=== PATIENT | male | born 1955 | race African-American/Black ===

== ENCOUNTER 2016-09-02 03:04 | Inpatient (IN) ==
[2016-09-02] MEDS ORDERED: NITROGLYCERIN 2% OINT 1 INCH/GM PACK TOP STA (03:14)
[2016-09-02] MEDS ORDERED: NITROGLYCERIN 2% OINT 1 INCH/GM PACK TOP ONE (03:22)
[2016-09-02 03:57] LABS: Troponin I Only 0.512 NG/ML (0.00-0.045)
[2016-09-02] MEDS ORDERED: ONDANSETRON 4 MG/2 ML VIAL IV PRN (04:11)
[2016-09-02] MEDS ORDERED: MAGNESIUM SULF RIDER 4 GM in PREMIX 1 EACH IV PRN (04:11)
[2016-09-02] MEDS ORDERED: POTASSIUM CHLORIDE 20 MEQ/15 ML UDCUP PER TUBE PRN (04:11)
[2016-09-02] MEDS ORDERED: guaiFENesin/DM ER 600-30 MG TABLET PO PRN (04:11)
[2016-09-02] MEDS ORDERED: DOCUSATE SODIUM 100 MG CAPSULE PO PRN (04:11)
[2016-09-02] MEDS ORDERED: MAGNESIUM SULF RIDER 2 GM in PREMIX 1 EACH IV PRN (04:11)
[2016-09-02] MEDS ORDERED: ACETAMINOPHEN 325 MG TABLET PO PRN (04:11)
--- NOTE | 2016-09-02 04:11 | Emergency Department Note ---
IEyad Emily, am scribing for, and in the presence of, Khoa Montes MD 03: 23. Simon Cline Robert M, MD, personally performed the services described in this documentation, ascribed by Alma Delia Castano in my presence, and it is both accurate and complete . Arrival - Arrival Chief Complaint: Chest Pain Stated Complaint: chest pain ED Nursing Triage Note: pt brought to room #8 via EMS. pt transfered from [facility] for further evaluation of CP and SOB with evlevated troponin and BNP. Duoneb, Lasix 40mg, Lovenox 100mg and ASA 325 mg given CATH LAB MANAGER. L hand 20g INT noted. Pt denies CP and SOB on arrival Mode of Arrival: Stretcher Limitations: No Limitations Source: Patient Time Seen by Provider: 09/02/16 03:10 - History of Present Illness HPI Narrative: Pt is a 61 y/o male who was transfered from [facility] for further evaluation of chest pain and SOB with elevated troponin and BNP. Duoneb , Lasix 40mg, Lovenox 100mg and ASA 325 mg was given CATH LAB MANAGER to pt. L hand 20g INT noted. Pt states he has "tightness" in his chest but denies pain or SOB in ED. Pt denies taking viagara or nitros. PMHx of CHF, CABG, CVA. Onset (ago): hour(s) Consistency: constant, now resolved Severity: mild, moderate Severity scale (1-10): 4 Quality: aching Allergies/Adverse Reactions: Allergies Allergy/AdvReac Type Severity Reaction Status Date / Time codeine Allergy RASH Verified 09/02/16 03:11 Penicillins Allergy ITCHING Verified 09/02/16 03:11 morphine AdvReac Hallucinati Verified 09/02/16 03:11 ng Home Medications: Home Medications Medication Instructions Recorded Confirmed Type Aspirin [Ecotrin] 81 mg PO DAILY 09/29/14 04/07/16 History Atorvastatin [Lipitor] 10 mg PO DAILY 09/29/14 04/07/16 History Carvedilol 25 mg PO BID 09/29/14 04/07/16 History HYDROcodone/ACETAMIN 10-325 [[place] 1 tablet PO Q6H 09/29/14 04/07/16 History 10-325] Insulin Lispro Prot/Lisp 75/25 10 units SUBCUT QPM 09/29/14 04/07/16 History [HumaLOG Mix 75/25] Insulin Lispro Prot/Lisp 75/25 25 units SUBCUT QAM 09/29/14 04/07/16 History [HumaLOG Mix 75/25] Multivitamin [Multivitamins] 1 each PO DAILY 09/29/14 04/07/16 History Pantoprazole Tab [Protonix Tab] 40 mg PO DAILY 09/29/14 04/07/16 History amLODIPine [Norvasc] 10 mg PO DAILY 09/29/14 04/07/16 History Losartan [Cozaar] 25 mg PO BID #60 tablet 10/02/14 04/07/16 Rx Furosemide Tab [Lasix Tab] 20 mg PO DAILY #30 tablet 04/07/16 Rx predniSONE TAB [PredniSONE] 20 mg PO DAILY #5 tablet 04/07/16 Rx Review of System - Review of System 12 point system: reviewed and no additional remarkable complaints except as stated - Review of System Constitutional: Absent: chills, fever Respiratory: Present: respiratory distress (SOB) Cardiovascular: Present: chest pain Skin: Absent: rash Medical,Surgical,& Family Hx - Medical History Cardio: History of: CHF, CAD, Hypertension, [place], Cardiovascular Problems (CABG, [place]) Psychological: History of: Anxiety Disorders Endocrine: History of: Diabetes Mellitus (IDDM), Dyslipidemia Renal: History of: Renal Failure Gastrointestinal: History of: GERD Musculoskeletal: History of: Back/Neck Problems (Back surgery X 3), Degenerative Disk Disease, Herniated Disk, Musculoskeletal Problems (Arthritis) - Surgical History Cardiac Surgeries: Sugical HX of: Cardiac Catheterization, Cardiac Surgery HEENT Surgeries: Surgical HX of: Eye Surgery - Family History Family History: Reports;: Family Diabetes, Family Heart Disease, Family Hypertension, Family Stroke - Social History Smoking Status: Former smoker Frequency of Alcohol Use: Frequently Type of Drug Use: None Exam Vital Signs: Vital Signs Temperature 98.5 F 09/02/16 03:05 Pulse Rate 86 09/02/16 03:05 Respiratory Rate 18 09/02/16 03:05 Blood Pressure 153/95 09/02/16 03:05 O2 Sat by Pulse Oximetry 96 09/02/16 03:05 - General General appearance: alert, in no apparent distress - Head Head exam: Present: atraumatic, normocephalic - Eye Eye exam: Present: PERRL, EOMI - ENT ENT exam: Present: mucous membranes moist. Absent: mucous membranes dry - Neck Neck exam: Present: full ROM. Absent: tenderness - Chest Chest inspection: Present: symmetric chest wall rise. Absent: tenderness - Respiratory Respiratory exam: Present: normal lung sounds bilaterally. Absent: respiratory distress - Cardiovascular Cardiovascular exam: Present: irregular rhythm (occasional but PVC on monitor), normal heart sounds - Neurological Exam Neurological exam: Present: alert, oriented X3, CN II-XII intact. Absent: motor sensory deficit - Psychiatric Psychiatric exam: Present: normal affect, normal mood - Skin Skin exam: Present: warm, dry, intact, normal color Course - Consultations Consultation #1: Dr. Campa will admit the patient and evaluate later this morning. Time: 04:11 Results - Labs Lab Results: I have reviewed the patients labs Labs: Total Creatine Kinase 172 U/L (39-308) 09/02/16 03:17 CK-MB (CK-2) 1.8 U/L (0.5-3.6) 09/02/16 03:17 Troponin I 0.512 NG/ML (0.00-0.045) H 09/02/16 03:17 Disposition Clinical Impression: Congestive heart failure, Chest pain, Systolic CHF, acute on chronic, Cardiomyopathy due to hypertension, Ischemic cardiomyopathy, Renal insufficiency Case discussed with: patient Disposition: Still a Patient Condition: Stable Instructions: Chest Pain (ED) Time of Disposition: 04:11
[2016-09-02] MEDS ORDERED: ENOXAPARIN 100 MG/ML SYRINGE SUBCUT STA (04:13)
[2016-09-02] MEDS ORDERED: ENOXAPARIN 100 MG/ML SYRINGE SUBCUT ONE (04:28)
[2016-09-02] MEDS ORDERED: SODIUM CHLORIDE 0.45% 1,000 ML IV SCH (04:30)
[2016-09-02 06:03] LABS: Troponin I Only 0.507 NG/ML (0.00-0.045)
--- NOTE | 2016-09-02 07:02 | EKG Report ---
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
[2016-09-02 07:35] LABS: Basophils % 0.5 % (0.0-0.8); Eosinophils # 0.1 10*3/uL (0.0-0.87); Eosinophils % 1.4 % (0.00-10.9); Hematocrit 34.7 VOL% (42.0-52.0); Hemoglobin 11.4 GM/DL (14.0-18.0); Immature Granulocytes % 0.2 %; Immature Granulocytes Absolute 0.01 #; Lymphocytes # 1.1 10*3/uL (1.4-4.0); Lymphocytes % 24.4 % (21.2-54.2); Mean Corpuscular HGB Conc 32.9 GM/DL (32-36); Mean Corpuscular Hemoglobin 30 PG (27-34); Mean Corpuscular Volume 91.3 FL (87-102); Mean Platelet Volume 10.9 FL (9.6-12.0); Monocytes # 0.7 10*3/uL (0.11-0.8); Monocytes % 15.6 % (1.7-12.7); Neutrophils # 2.5 10*3/uL (1.4-7.4); Neutrophils % 57.9 % (38.7-73.9); Platelet Count 115 T/CUMM (130-400); Red Cell Distribution Width 16.8 % (9.3-17.3); White Blood Count 4.4 T/CUMM (4-12)
[2016-09-02 08:08] LABS: Calcium 9.3 MG/DL (8.5-10.1); Magnesium 1.8 MG/DL (1.8-2.4); Osmolality,Calculated 295.1 MOS/KG (273-304); Potassium 4.4 MMOL/L (3.5-5.1)
--- NOTE | 2016-09-02 08:08 | Cardiology History & Physical ---
<Nataliya Owens - Last Filed: 09/02/16 10:42> Assessment and Plan - Time spent with patient Time spent with patient: Greater than 30 minutes (1) Chest pain Status: Acute Assessment and plan: On exam, his pain was reproducible. Patient reports that this was the same chest pain he was experiencing. This is consistent with chest wall pain. I will add gabapentin, tramadol and Tylenol. Trivial troponin noted. She has history of chronically elevated troponins. EKG was actually improved when compared to previous EKG. We will continue to monitor cardiac biomarkers and EKG. Current Visit: Yes (2) Coronary artery disease Status: Chronic Current Visit: No (3) Ischemic cardiomyopathy Status: Chronic Assessment and plan: Ejection fraction from most recent echo, March 2016, revealed concentric LVH and severe left ventricular hypokinesis with an estimated left ventricular ejection fraction of 14%. Moderate tricuspid regurgitation, mild pulmonic regurgitation and mild mitral regurgitation noted. We will repeat echo this admission. Current Visit: Yes (4) Systolic CHF, acute on chronic Status: Acute Assessment and plan: BNP at outside facility was 5732. At [facility] it was noted to be 1554. Chest x-ray does not reveal any acute cardia pulmonary processes. Will add Lasix 40 mg IV twice daily. Will monitor creatinine closely with daily BMP. We will continue losartan for now. Will monitor creatinine and hold if needed. Current Visit: Yes (5) Renal insufficiency Status: Chronic Assessment and plan: Creatinine is 2.3. Will monitor closely with daily BMP. Current Visit: Yes (6) Diabetes Status: Chronic Assessment and plan: Patient's home medications have been reinitiated. Current Visit: No (7) History of coronary artery bypass graft Status: Chronic Assessment and plan: History of CABG in 2004. Current Visit: No (8) Hyperlipidemia Status: Chronic Assessment and plan: Continue current plan of care with statin. Current Visit: No (9) Troponin level elevated Status: Chronic Assessment and plan: Troponin is noted to be 0.5. However, after reviewing past medical records it appears that patient has a chronically elevated troponin. Patient's creatinine is also elevated at 2.3. BNP 1554. These are not concerning for ACS at this time. We will continue to monitor these. Current Visit: No (10) Dysphagia Status: Acute Assessment and plan: We will consult GI. Current Visit: Yes (11) Snoring Status: Acute Assessment and plan: We will consult Dr. Sousa for workup of possible sleep apnea. Current Visit: Yes History of Present Illness Chief complaint: Shortness of breath and chest pain History of present illness: Mr. Fields is a 61 year old male with known history of coronary artery disease, routinely followed by Dr. Campa. Patient was transferred from [facility] for further evaluation of chest pain and shortness of breath. Patient has cardiac risk factors significant for known history of coronary artery disease, hypertension, diabetes, dyslipidemia, obesity, family history of coronary artery disease (father and brother) and former smoker (reports that he quit in 1989). Past medical history includes: Ischemic cardiomyopathy, myocardial infarction and peripheral vascular disease. He is status post CABG 3 in 2004. Patient has ROCKWELL to LAD, vein graft to OM and vein graft to RCA. Patient underwent cardiac stress test at cardiovascular [place] [facility] April 2016. Stress EKG was abnormal with downsloping ST depression noted in lead II, lead III, aVL, aVF, V4, V5 and V6. The nuclear portion of this study was also abnormal. The study was consistent with mostly scar tissue with minimal ischemia. The scan was suggestive of low to moderate risk for future cardiovascular events. Medium fixed perfusion abnormality of severe intensity in the inferior region was noted. Left ventricular ejection fraction was calculated to be 17% and the left ventricular global function is severely reduced. Heart catheterization October 2011 revealed occluded vein graft to OM. The OM had an extreme angle making it very difficult if not impossible for intervention. Because of this, intervention was not attempted. Patient was treated with medical therapy. Most recent echo was done March 2016 at [facility]. This revealed concentric LVH and severe left ventricular hypokinesis with an estimated left ventricular ejection fraction of 14%. Moderate tricuspid regurgitation, mild pulmonic regurgitation and mild mitral regurgitation noted. Patient was in his usual state of health until yesterday evening around 8:00 when he began experiencing moderate chest tightness and pressure while watching TV. This pain was located in the middle of his chest and did not radiate. He rates his pain a 6 on a scale of 1-10. He confirms at this pain was also associated with shortness of breath. He denies nausea, vomiting, diaphoresis, lightheadedness and heart palpitations/heart racing. Patient is unable to identify any aggravating or alleviating factors. He reports that his chest pain was not worsened with exertion. With his long-standing cardiac history, patient quickly presented to [facility] ER for further evaluation of his symptoms. Patient reports that his chest pain went away on its own while sitting in the ER. This lasted approximately 1 hour. He tells me that nitroglycerin or morphine did not relieve his pain. Upon arrival to [facility] ER , his BNP was noted to be 5732. Troponin 0.513. He was given Lasix, Lovenox and aspirin and transferred to [facility]. Patient was admitted under cardiology's service and housed on telemetry for close observation. Patient confirms bilateral lower extremity edema and shortness of breath. He denies fever, chills, cough, nausea, vomiting, melena, orthopnea and PND. Of note, he also denies dyspnea on exertion, easy fatigability and worsening of his exercise tolerance. He confirms snoring, daytime sleepiness, dysphagia, abdominal pain and history of esophageal stricture. Patient was seen and examined on the telemetry unit. Patient was resting in bed in no acute distress. Not requiring oxygen. He is currently chest pain- free. His troponin at outside facility was 0.513. At [facility] it was noted to be 0.512 and 0.507. However, patient's creatinine is elevated at 2.3. After reviewing past medical records, patient appears to have a chronically elevated troponin with baseline ranging from 0.2- 0.5. EKG reveals T-wave abnormality in leads II and aVF. However, when compared to previous EKG this has actually improved. Left BBB is noted with poor R wave progression. On exam, patient's chest pain is reproducible. He reports that this was the same chest pain that he was experiencing. We will treat his chest wall pain with gabapentin, tramadol and Tylenol. We will continue to cycle cardiac biomarkers and EKG and monitor patient on telemetry. Home Medications Medication Instructions Recorded Confirmed Type Aspirin [Ecotrin] 81 mg PO DAILY 09/29/14 09/02/16 History Atorvastatin [Lipitor] 10 mg PO BEDTIME 09/29/14 09/02/16 History HYDROcodone/ACETAMIN 10-325 [[place] 1 tablet PO Q6H 09/29/14 09/02/16 History 10-325] Insulin Lispro Prot/Lisp 75/25 10 units SUBCUT QPM 09/29/14 09/02/16 History [HumaLOG Mix 75/25] Insulin Lispro Prot/Lisp 75/25 20 units SUBCUT QAM 09/29/14 09/02/16 History [HumaLOG Mix 75/25] Multivitamin [Multivitamins] 1 each PO DAILY 09/29/14 09/02/16 History Pantoprazole Tab [Protonix Tab] 40 mg PO DAILY 09/29/14 09/02/16 History amLODIPine [Norvasc] 10 mg PO DAILY 09/29/14 09/02/16 History Losartan [Cozaar] 25 mg PO BID #60 tablet 10/02/14 09/02/16 Rx Furosemide Tab [Lasix Tab] 40 mg PO DAILY 09/02/16 09/02/16 History Allergies Allergy/AdvReac Type Severity Reaction Status Date / Time codeine Allergy RASH Verified 09/02/16 03:11 Penicillins Allergy ITCHING Verified 09/02/16 03:11 morphine AdvReac Hallucinati Verified 09/02/16 03:11 ng - Constitutional Constitutional: Present: daytime sleepiness, weight gain. Absent: chills, fatigue, fever(s), frequent falls, headache(s), lethargy, malaise - Cardiovascular Cardiovascular: Present: as per HPI, chest pain at rest, diaphoresis, dyspnea. Absent: claudication, edema, radiating jaw, neck or arm pain, lightheadedness, orthopnea, palpitations, PND - Respiratory Respiratory: Present: as per HPI, dyspnea, snoring. Absent: wheezing, pain on inspiration, change in phlegm color - Gastrointestinal Gastrointestinal: Present: dysphagia. Absent: abdominal pain, change in bowel habits, coffee ground emesis, constipation, cramping, diarrhea, heartburn, hematemesis, hematochezia, loose stools, melena, nausea, vomiting - Neurological Neurological: Absent: abnormal gait, abnormal speech, behavioral changes, dizziness, frequent falls, syncope - Hematologic/Lymphatic Hematologic/Lymphatic: Absent: easy bleeding, easy bruising, lymphadenopathy Medical,Surgical,& Family Hx - Medical History Cardio: History of: CHF, CAD, Hypertension, [place], PVD, Cardiovascular Problems ( CABG, [place]) Psychological: History of: Anxiety Disorders Endocrine: History of: Diabetes Mellitus (IDDM), Dyslipidemia Renal: History of: Renal Problems (Renal insufficiency) Gastrointestinal: History of: GERD, GI Problems (Esophageal stricture) Musculoskeletal: History of: Back/Neck Problems (Back surgery X 3), Degenerative Disk Disease, Herniated Disk, Musculoskeletal Problems (Arthritis) No history of: Amputation - Surgical History Cardiac Surgeries: Sugical HX of: Cardiac Catheterization, Cardiac Surgery Thoracic Surgeries: Patient denies;: Lobectomy Neurologic Surgeries: Patient denies: Neurologic Surgery HEENT Surgeries: Surgical HX of: Eye Surgery Patient denies: Tonsilectomy & Adenoidectomy - Family History Family History: Reports;: Family Diabetes, Family Heart Disease, Family Hypertension, Family Stroke - Social History Smoking Status: Former smoker Frequency of Alcohol Use: Frequently Type of Drug Use: None Cardiology Physical Exam - Constitutional Vitals: Vital Signs Temp Pulse Resp BP Pulse Ox 98 F 94 H 20 147/90 95 09/02/16 06:36 09/02/16 06:36 09/02/16 06:36 09/02/16 06:36 09/02/16 04:42 Intake and Output 09/01/16 09/02/16 09/02/16 22:59 06:59 14:59 Intake Total 0 / 0 Balance 0 / 0 Intake: Oral 0 / 0 Other: Voiding Method Toilet # Voids 1 Weight 214 lb General appearance: no acute distress, over weight - Head Head exam: Present: normal inspection, normocephalic, atraumatic - Neck Neck exam: Present: normal inspection - Respiratory Respiratory exam: Present: rales (Bilateral bases). Absent: accessory muscle use, chest wall tenderness - Cardiovascular Cardiovascular exam: Present: regular rate and rhythm, other (Chest wall tenderness). Absent: carotid bruit, gallop, rubs - GI/Abdominal GI/Abdominal exam: Present: normal bowel sounds, soft. Absent: distended, firm , tenderness - Extremities Exam Extremities exam: Present: edema (2+ edema to bilateral lower extremity), other (Decreased pulses to bilateral lower extremities). Absent: calf tenderness - Neurological Exam Neurological exam: Present: alert, oriented X3, normal gait - Psychiatric Psychiatric exam: Present: normal affect, normal mood. Absent: agitated, anxious, depressed - Skin Skin exam: Present: normal color, warm, dry. Absent: cyanosis, erythema Result/EKG - Labs CBC & BMP: 09/02/16 07:28 09/02/16 07:28 Lab Results: I have reviewed the past 24 hour labs Labs: Laboratory Results - last 24 hr 09/02/16 05:07 Total Creatine Kinase 171 CK-MB (CK-2) 1.9 Troponin I 0.507 H <Dl Campa - Last Filed: 09/02/16 12:57> Assessment and Plan (1) Suspected sleep apnea Status: Acute Current Visit: Yes (2) Chest wall pain Status: Acute Current Visit: Yes History of Present Illness History of present illness: Mr. Fields is a 61 year old male Cardiology Physical Exam - Constitutional Vitals: Vital Signs Temp Pulse Resp BP Pulse Ox 98.6 F 72 20 139/82 95 09/02/16 12:00 09/02/16 12:00 09/02/16 12:00 09/02/16 12:00 09/02/16 04:42 Intake and Output 09/01/16 09/02/16 09/02/16 23:59 07:59 15:59 Intake Total 0 / 0 Balance 0 / 0 Intake: Oral 0 / 0 Other: Voiding Method Toilet # Voids 1 Weight 97.069 kg Patient Weight 09/02/16 23:59 Weight 97.069 kg Result/EKG - Labs CBC & BMP: 09/02/16 07:28 09/02/16 07:28 Labs: Laboratory Results - last 24 hr 09/02/16 09/02/16 09/02/16 05:07 07:28 07:28 WBC 4.4 RBC 3.80 Hgb 11.4 L Hct 34.7 L MCV 91.3 MCH 30 MCHC 32.9 RDW 16.8 Plt Count 115 L MPV 10.9 Neut % (Auto) 57.9 Lymph % (Auto) 24.4 Tift % (Auto) 15.6 H Eos % (Auto) 1.4 Baso % (Auto) 0.5 Neut # (Auto) 2.5 Lymph # (Auto) 1.1 L Tift # (Auto) 0.7 Eos # (Auto) 0.1 Baso # (Auto) 0.0 Total Counted 100 Immature Gran % 0.2 Nucleated RBC % 0.0 Immature Gran # 0.01 Segmented Neutrophils 57 Lymphocytes 23 Monocytes 19 H Eosinophils 1 Nucleated RBCs # 0.00 Platelet Estimate Decreased Hypochromasia 1+ Ovalocytes Slight Morphology Comment Sodium 142 Potassium 4.4 Chloride 105 Carbon Dioxide 27 Anion Gap 14.4 BUN 32 H Creatinine 2.30 H GFR Calculation 42 BUN/Creatinine Ratio 13.00 Glucose 212 H POC Glucose Calculated Osmolality 295.1 Calcium 9.3 Magnesium 1.8 Total Creatine Kinase 171 CK-MB (CK-2) 1.9 Troponin I 0.507 H 09/02/16 11:39 WBC RBC Hgb Hct MCV MCH MCHC RDW Plt Count MPV Neut % (Auto) Lymph % (Auto) Tift % (Auto) Eos % (Auto) Baso % (Auto) Neut # (Auto) Lymph # (Auto) Tift # (Auto) Eos # (Auto) Baso # (Auto) Total Counted Immature Gran % Nucleated RBC % Immature Gran # Segmented Neutrophils Lymphocytes Monocytes Eosinophils Nucleated RBCs # Platelet Estimate Hypochromasia Ovalocytes Morphology Comment Sodium Potassium Chloride Carbon Dioxide Anion Gap BUN Creatinine GFR Calculation BUN/Creatinine Ratio Glucose POC Glucose 191 H Calculated Osmolality Calcium Magnesium Total Creatine Kinase CK-MB (CK-2) Troponin I
[2016-09-02 08:18] LABS: Eosinophils 1 % (0-10); Hypochromasia 1+; Lymphocytes 23 % (20-55); Ovalocytes Slight; Platelet Estimate Decreased; Segmented Neutrophils 57 % (50-85); Total Cells Counted 100
--- NOTE | 2016-09-02 08:31 | XRay Report ---
XR chest 2V Indication: Shortness of breath Comparison: 07 April 2016 Findings: The heart and mediastinum are similar in size and configuration with cardiac surgery changes. The pulmonary vascularity is normal in caliber. No lung infiltrates, effusions, pneumothorax or other abnormality is demonstrated. Impression: No acute cardiopulmonary disease. PROCEDURE INTERPRETED AT [facility] DEPARTMENT OF RADIOLOGY Final Report Signed by: Dr. Grant Lewis
[2016-09-02] MEDS ORDERED: PANTOPRAZOLE 40 MG TABLET PO SCH (09:00)
[2016-09-02] MEDS ORDERED: FUROSEMIDE 40 MG/4 ML VIAL IV ONE (10:33)
[2016-09-02] MEDS: amLODIPine 10 MG TABLET PO SCH (11:24)
[2016-09-02] MEDS: ACETYLCYSTEINE 600 MG CAPSULE PO SCH ×2 (11:24→20:31)
[2016-09-02] MEDS: GABAPENTIN 100 MG CAPSULE PO SCH ×3 (11:24→20:31)
[2016-09-02] MEDS: traMADol 50 MG TABLET PO SCH ×2 (11:25→20:35)
[2016-09-02] MEDS ORDERED: INSULIN REGULAR 100 UNIT/ML SUBCUT SCH (11:30)
--- NOTE | 2016-09-02 12:52 | Sleep Medicine Consult ---
Assessment and Plan (1) Unspecified sleep apnea Status: Acute Assessment and plan: This patient lacks symptoms of loud snoring or witnessed apneas or even daytime fatigue and sleepiness. However, with his medical comorbidities, I do think sleep evaluation is indicated. We will initiate HST evaluation tonight and follow-up on those results. Current Visit: No (2) Diabetes Status: Chronic Assessment and plan: The prevalence rate for obstructive sleep apnea in patients with type 2 diabetes can be as high as 86%. Those patients with moderate to severe obstructive sleep apnea are at a greater risk for diabetic nephropathy and neuropathy. Compliance with CPAP therapy for these patients can lead to improvement in glycemic control and improvement in insulin sensitivity. Current Visit: No (3) Congestive heart failure Status: Acute Assessment and plan: Untreated sleep apnea can be an exacerbating factor for CHF, whether related to systolic or diastolic dysfunction. Treating underlying sleep apnea often can improve management of congestive heart failure. Some studies have shown improvement in ejection fraction with CPAP therapy of obstructive sleep apnea in patients with systolic dysfunction. One study has also been shown to reduce readmission right when patients with congestive heart failure are treated for obstructive sleep apnea. Current Visit: Yes History of Present Illness Chief complaint: Sleep apnea History of present illness: Mr. Fields is a 61 year old male admitted with congestive heart failure who has a severe underlying ischemic cardiomyopathy with an EF of 14%. Sleep medicine was consulted for concern of possible sleep apnea. He apparently had been scheduled to be seen in the sleep clinic last April but his brother and he was unable to keep his appointment and was not rescheduled. The patient denies any history of snoring or abnormal breathing during sleep. He usually retires somewhere between 10 and 12 PM, depending on how much TV he watches. He then will get out of bed somewhere around 10 the next morning, again depending on how much TV he watches. He denies awakening from sleep short of breath and states that he usually feels refreshed upon awakening. He does get up 2-3 times a night to urinate, depending on how much Lasix he had to take. He denies any significant issues with restlessness of his legs or leg jerks. Home Medications Medication Instructions Recorded Confirmed Type Aspirin [Ecotrin] 81 mg PO DAILY 09/29/14 09/02/16 History Atorvastatin [Lipitor] 10 mg PO BEDTIME 09/29/14 09/02/16 History HYDROcodone/ACETAMIN 10-325 [[place] 1 tablet PO Q6H 09/29/14 09/02/16 History 10-325] Insulin Lispro Prot/Lisp 75/25 10 units SUBCUT QPM 09/29/14 09/02/16 History [HumaLOG Mix 75/25] Insulin Lispro Prot/Lisp 75/25 20 units SUBCUT QAM 09/29/14 09/02/16 History [HumaLOG Mix 75/25] Multivitamin [Multivitamins] 1 each PO DAILY 09/29/14 09/02/16 History Pantoprazole Tab [Protonix Tab] 40 mg PO DAILY 09/29/14 09/02/16 History amLODIPine [Norvasc] 10 mg PO DAILY 09/29/14 09/02/16 History Losartan [Cozaar] 25 mg PO BID #60 tablet 10/02/14 09/02/16 Rx Furosemide Tab [Lasix Tab] 40 mg PO DAILY 09/02/16 09/02/16 History Allergies Allergy/AdvReac Type Severity Reaction Status Date / Time codeine Allergy RASH Verified 09/02/16 03:11 Penicillins Allergy ITCHING Verified 09/02/16 03:11 morphine AdvReac Hallucinati Verified 09/02/16 03:11 ng Exam (Pulmonay) H&P - Constitutional Vitals: Period Temp Pulse Resp BP Sys/Shook Pulse Ox Last 24 Hr 98 F-98.6 F 72-94 17-20 130-147/79-90 95 Exam: He is alert and responsive in no acute distress. He has a class III Mallampati exam. Neck is supple without adenopathy or thyromegaly. No supraclavicular adenopathy is noted. Chest with symmetrical breath sounds without focal wheeze , rhonchi, or rales. Cardiac exam reveals a regular rhythm without murmur or gallop. Abdomen soft nontender without palpable hepatosplenomegaly or mass. Extremities are without clubbing, cyanosis. He does have 1+ pitting edema. Neurologically, he is grossly intact. He moves all extremities with good strength and answers questions appropriately. Medical,Surgical,& Family Hx - Medical History Cardio: History of: CHF, CAD, Hypertension, [place], PVD, Cardiovascular Problems ( CABG, [place]) Psychological: History of: Anxiety Disorders Endocrine: History of: Diabetes Mellitus (IDDM), Dyslipidemia Renal: History of: Renal Failure, Renal Problems (Renal insufficiency) Gastrointestinal: History of: GERD, GI Problems (Esophageal stricture) Musculoskeletal: History of: Back/Neck Problems (Back surgery X 3), Degenerative Disk Disease, Herniated Disk, Musculoskeletal Problems (Arthritis) No history of: Amputation - Surgical History Cardiac Surgeries: Sugical HX of: Cardiac Catheterization, Cardiac Surgery Thoracic Surgeries: Patient denies;: Lobectomy Neurologic Surgeries: Patient denies: Neurologic Surgery HEENT Surgeries: Surgical HX of: Eye Surgery Patient denies: Tonsilectomy & Adenoidectomy - Family History Family History: Reports;: Family Diabetes, Family Heart Disease, Family Hypertension, Family Stroke - Social History Smoking Status: Former smoker Frequency of Alcohol Use: Frequently Type of Drug Use: None Results - Labs CBC & BMP: 09/02/16 07:28 09/02/16 07:28 Lab Results: I have reviewed the past 24 hour labs Specialty Discharge - Follow Up or Referrals
--- NOTE | 2016-09-02 13:08 | Gastrointestinal Consult Note ---
Assessment and Plan (1) Dysphagia Status: Acute Assessment and plan: This patient has a slight amount of esophageal reflux and dysphagia type symptoms that he feels in his upper esophagus but really not enough to prevent him from eating or swallowing large pills. His symptoms are actually quite minimal and that would suspect that this is probably due to reflux with spasm. He does not want to pursue an upper endoscopy nor do I think he really needs this at this point especially with his ejection fraction of only 14%. We will obtain a barium swallow tomorrow to see if there is any significant narrowing that would require dilation at this time. His last upper endoscopy was July 2008. This will also serve to eliminate esophageal cancer as a possibility. Current Visit: Yes (2) GERD (gastroesophageal reflux disease) Status: Acute Assessment and plan: Patient does experience low-grade reflux symptoms which should be maximally suppressed with Protonix 40 mg p.o. twice daily. We will increase this to twice daily at this time. I strongly suspect that his dysphagia is likely secondary to esophageal spasm. Await barium swallow tomorrow. We will get an upper GI series to look for evidence of gastric ulcers etc. as well. Current Visit: Yes (3) Abdominal bloating Status: Acute Assessment and plan: The barium swallow/upper GI series may also demonstrate evidence of gastroparesis there is retained food or fluid in the stomach. The patient may need a dedicated gastric emptying study in the future to quantify this change. He may benefit from Reglan if the diagnosis can be made. Current Visit: Yes (4) Anemia Status: Acute Assessment and plan: This is a low-grade anemia likely secondary to chronic disease. I will check iron studies to make sure this is not due to iron deficiency. We will be placing the patient on some Protonix twice daily to see if any improvement of the dysphagia can be seen with complete suppression of acidity which should theoretically decreased spasm in the esophagus. Current Visit: Yes History of Present Illness Chief complaint: Dysphagia and gastric bloating, mild anemia, last EGD 08/09/08 History of present illness: Mr. Fields is a 61 year old male who had actually been evaluated with upper and lower endoscopy by Dr. Vasquez as recently as 08/09/08 when he was seen in the hospital for GI bleeding. He had had a previous gastric polyp and this was removed with cautery and his stomach was noted to be vascular at the time. He did have a history of gastric ulcers but was not having any at that time. He also underwent colonoscopy with a "less than ideal prep". This was completely normal on that same date. The patient had been seeing his primary care provider and have been noted to have some increasing bloating and obstipation for which he receives some MiraLAX which was helpful as far as his constipation goes but not as far as his bloating. He states that occasionally he gets spasm in his upper esophagus which results in dysphagia symptoms but this usually passes and several minutes. He has not had more recent upper endoscopy to evaluate this nor is he had a gastric emptying study to see if any bloating is present. He is able to swallow his pills with ease and is not having any difficulty keeping up with his nutrition and eating. He does not wish to have upper endoscopy for evaluation but would not mind having a barium swallow. We will arrange for this as well as pantoprazole on a twice daily dosing schedule until he can be evaluated. He does have very mild anemia with hematocrit of 34.7%. Hemoglobin is 11.4 g/dL. he continues to take an aspirin each day as his only anticoagulation. He has some reflux up to his mouth at times. He did not feel any better after starting his MiraLAX from an upper GI standpoint. Home Medications Medication Instructions Recorded Confirmed Type Aspirin [Ecotrin] 81 mg PO DAILY 09/29/14 09/02/16 History Atorvastatin [Lipitor] 10 mg PO BEDTIME 09/29/14 09/02/16 History HYDROcodone/ACETAMIN 10-325 [[place] 1 tablet PO Q6H 09/29/14 09/02/16 History 10-325] Insulin Lispro Prot/Lisp 75/25 10 units SUBCUT QPM 09/29/14 09/02/16 History [HumaLOG Mix 75/25] Insulin Lispro Prot/Lisp 75/25 20 units SUBCUT QAM 09/29/14 09/02/16 History [HumaLOG Mix 75/25] Multivitamin [Multivitamins] 1 each PO DAILY 09/29/14 09/02/16 History Pantoprazole Tab [Protonix Tab] 40 mg PO DAILY 09/29/14 09/02/16 History amLODIPine [Norvasc] 10 mg PO DAILY 09/29/14 09/02/16 History Losartan [Cozaar] 25 mg PO BID #60 tablet 10/02/14 09/02/16 Rx Furosemide Tab [Lasix Tab] 40 mg PO DAILY 09/02/16 09/02/16 History Allergies Allergy/AdvReac Type Severity Reaction Status Date / Time codeine Allergy RASH Verified 09/02/16 03:11 Penicillins Allergy ITCHING Verified 09/02/16 03:11 morphine AdvReac Hallucinati Verified 09/02/16 03:11 ng Medical,Surgical,& Family Hx - Medical History Cardio: History of: CHF, CAD, Hypertension, [place], PVD, Cardiovascular Problems ( CABG, [place]) Psychological: History of: Anxiety Disorders Endocrine: History of: Diabetes Mellitus (IDDM), Dyslipidemia Renal: History of: Renal Failure, Renal Problems (Renal insufficiency) Gastrointestinal: History of: GERD, GI Problems (Esophageal stricture) Musculoskeletal: History of: Back/Neck Problems (Back surgery X 3), Degenerative Disk Disease, Herniated Disk, Musculoskeletal Problems (Arthritis) No history of: Amputation - Surgical History Cardiac Surgeries: Sugical HX of: Cardiac Catheterization, Cardiac Surgery Thoracic Surgeries: Patient denies;: Lobectomy Neurologic Surgeries: Patient denies: Neurologic Surgery HEENT Surgeries: Surgical HX of: Eye Surgery Patient denies: Tonsilectomy & Adenoidectomy - Family History Family History: Reports;: Family Diabetes, Family Heart Disease, Family Hypertension, Family Stroke - Social History Smoking Status: Former smoker Frequency of Alcohol Use: Frequently Type of Drug Use: None Review of systems: Constitutional: Denies fever, chills, but occasional nausea, and vomiting Eyes: Denies dry eyes, and scleral icterus HENT: Denies headaches Cardiovascular: He does have some acute chest pain but no claudication Respiratory: Denies shortness of breath, wheezing, and difficulty breathing, denies cough Gastrointestinal: As noted in the HPI Genitourinary: Denies dysuria and hematuria Neurologic: Denies vision loss, and loss of sensation Musculoskeletal: He does admit to some joint swelling, joint stiffness, and muscular weakness Psychiatric: Denies depression and prashant symptoms Heme-Lymph: Denies easy bruising, lymph node enlargement or tenderness, night sweats, excessive bleeding Allergies-immunologic: Denies pruritus and rhinorrhea Exam - Constitutional Vitals: Period Temp Pulse Resp BP Sys/Shook Pulse Ox Last 24 Hr 98 F-98.6 F 72-94 17-20 130-147/79-90 95 Exam: Constitutional: Well-developed, well-nourished, alert, and in no acute distress Head and face: Head: Normocephalic atraumatic Eyes: Conjunctiva without injection, no gross scleral icterus, pupils equal and round bilaterally Ears: Intact to conversation in both ears Nose: External appearance is normal, nares patent Mouth: Oral mucous membranes moist without erythema dentition noted to be without erosion Neck: Normal appearance, no masses or tenderness, trachea midline Thyroid: Gland midline and appropriate size for age Respiratory: Normal respiratory effort, clear to auscultation without wheezes, rhonchi or rales Cardiovascular: Regular rate and rhythm, normal S1, S2, the exam is without rubs, murmurs or gallops. Gastrointestinal: Nontender to palpation, mildly bloated but normal active bowel sounds, tone normal without rigidity or guarding, no masses present, no hepatomegaly, no spleen tip felt. His rectal exam showed brown stool that was guaiac negative with small internal hemorrhoids palpated. Lymphatic: Neck without adenopathy, axilla without lymphadenopathy present Musculoskeletal: Right and left lower extremities with 1-2+ evidence of edema below the knees Skin and subcutaneous tissue: No rashes or ulcerations noted, normal skin turgor, digits and nails without clubbing/cyanosis/deformities. Neurologic: The patient is grossly oriented to person place and time, cranial nerves show tongue movements are normal with normal tongue extrusion midline, light touch sensation is intact. Psychiatric: No hallucinations or delusions are present, does not appear depressed Results - Labs CBC & BMP: 09/02/16 07:28 09/02/16 07:28 Specialty Discharge - Follow Up or Referrals
[2016-09-02 13:17] LABS: Troponin I Only 0.565 NG/ML (0.00-0.045)
[2016-09-02] MEDS: FUROSEMIDE 40 MG/4 ML VIAL IV SCH (16:25)
--- NOTE | 2016-09-02 16:37 | ECHO Report ---
Unruly Fields Exam Date: 09/02/2016 09:13 Referring Physician: Technologist: Rita Rick RDCS Age: 61 Ht (in): Wt (lb): Gender: M Exam Location: [facility] Echo Indications: Chest pain, unspecified, Ischemic cardiomyopathy, Acute on chronic systolic (congestive) heart failure, Shortness of breath, Hyperlipidemia, unspecified, CRI, IDDM, Elevated troponin, CAD with previous CABG BP: / HR: Rhythm: Sinus Technical Quality: Good IMPRESSIONS Left ventricular ejection fraction is estimated at 15 - 20 %. Normal left ventricular wall thickness. Mildly to moderate increased left ventricular cavity size. Left ventricular ejection fraction is estimated at 15 - 20 %. Mildly increased right ventricular size. Moderately increased right atrial size. Moderately increased left atrial size. Mild mitral valve regurgitation. Aortic valve sclerosis without stenosis or regurgitation. Severe tricuspid valve regurgitation. Tricuspid regurgitation velocities suggest a PAP of 44 mmHg. Mild pulmonary valve regurgitation. MEASUREMENTS (Male / Female) Normal Values 2D ECHO LV Diastolic Diameter PLAX 5.7 cm 4.2 - 5.9 / 3.9 - 5.3 cm LV Systolic Diameter PLAX 5.6 cm LV Fractional Shortening PLAX 2.8 % IVS Diastolic Thickness 1.0 cm 0.6 - 1.0 / 0.6 - 0.9 cm LVPW Diastolic Thickness 1.0 cm 0.6 - 1.0 / 0.6 - 0.9 cm RV Internal Dim ED PLAX 5.0 cm Aortic Root Diameter 3.1 cm LA Systolic Diameter LX 4.5 cm 3.0 - 4.0 / 2.7 - 3.8 cm DOPPLER TR Peak Velocity 293.0 cm/s TR Peak Gradient 34.3 mmHg FINDINGS Left Ventricle Mildly to moderate increased left ventricular cavity size. . Normal left ventricular wall thickness. Left ventricular ejection fraction is estimated at 15 - 20 %. Right Ventricle Mildly increased right ventricular size. Right Atrium Moderately increased right atrial size. Left Atrium Moderately increased left atrial size. Mitral Valve Mitral valve sclerosis. Mild mitral valve regurgitation. Aortic Valve Aortic valve sclerosis without stenosis or regurgitation. Tricuspid Valve Tricuspid valve sclerosis. Severe tricuspid valve regurgitation. Tricuspid regurgitation velocities suggest a PAP of 44 mmHg. Pulmonic Valve Morphologically normal pulmonic valve. Mild pulmonary valve regurgitation. Pericardium Normal pericardium without effusion. Aorta Normal ascending aorta dimension. Dl Campa MD (Electronically Signed) Final Date: 02 September 2016 16:36
[2016-09-02] MEDS ORDERED: INSULIN LISPRO PROTAMINE/LISPRO 75/25 100 UNIT/ML SUBCUT ONE (17:16)
[2016-09-02] MEDS: INSULIN LISPRO PROTAMINE/LISPRO 75/25 100 UNIT/ML SUBCUT SCH ×2 (17:21→18:04)
[2016-09-02] MEDS: PANTOPRAZOLE 40 MG TABLET PO SCH (20:32)
[2016-09-02] MEDS: ATORVASTATIN 10 MG TABLET PO SCH (20:32)
[2016-09-02] MEDS: ACETAMINOPHEN 325 MG TABLET PO SCH (20:32)
[2016-09-02] MEDS: LOSARTAN 25 MG TABLET PO SCH (20:32)
[2016-09-02 21:01] LABS: Troponin I Only 0.487 NG/ML (0.00-0.045)
[2016-09-03 06:17] LABS: Calcium 8.7 MG/DL (8.5-10.1); Magnesium 1.6 MG/DL (1.8-2.4); Potassium 4.1 MMOL/L (3.5-5.1)
[2016-09-03] MEDS: PANTOPRAZOLE 40 MG TABLET PO SCH ×2 (07:33→18:35)
[2016-09-03] MEDS: FUROSEMIDE 40 MG/4 ML VIAL IV SCH ×2 (10:14→16:06)
[2016-09-03] MEDS: traMADol 50 MG TABLET PO SCH ×2 (10:16→20:52)
[2016-09-03] MEDS: amLODIPine 10 MG TABLET PO SCH (10:16)
[2016-09-03] MEDS: ENOXAPARIN 40 MG/0.4 ML SYRINGE SUBCUT SCH (10:16)
[2016-09-03] MEDS: ACETAMINOPHEN 325 MG TABLET PO SCH ×2 (10:16→20:52)
[2016-09-03] MEDS: ACETYLCYSTEINE 600 MG CAPSULE PO SCH ×2 (10:16→20:52)
--- NOTE | 2016-09-03 10:16 | Fluoroscopy Report ---
Exam: [place] barium swallow GI Date: 09/03/2016 4:00 AM Comparison: None Indication: Dysphasia, possible esophageal spasm Technique:[Fluoroscopy time 5.16 minutes. Films were obtained with the fluoro grab technique to reduce radiation. 80 images were obtained.] Findings: Indentation on the cervical esophagus by the cricopharyngeus muscle. Very small sliding-type hiatal hernia with decreased distensibility of the distal esophagus with minimal gastroesophageal reflux. Filling defects noted in the gastric antrum. Unremarkable duodenal bulb and loop. Prior median sternotomy with cardiomegaly. Impression: Very small sliding-type hiatal hernia with minimal gastroesophageal reflux. Especially on the AP films it appears that there is decreased distensibility of the esophagus which can be seen with non high-grade stricture. Indentation on the cervical esophagus by the cricopharyngeus muscle. Polyps in the gastric antrum. Endoscopy may be helpful for further evaluation. PROCEDURE INTERPRETED AT [facility] DEPARTMENT OF RADIOLOGY Final Report Signed by: Dr. Elisabet Fry
[2016-09-03] MEDS: ASPIRIN EC 81 MG TABLET PO SCH (10:17)
[2016-09-03] MEDS: GABAPENTIN 100 MG CAPSULE PO SCH ×3 (10:17→20:52)
[2016-09-03] MEDS: MULTIVITAMIN (CENTRUM) TABLET PO SCH (10:17)
[2016-09-03] MEDS: LOSARTAN 25 MG TABLET PO SCH ×2 (10:17→20:52)
[2016-09-03] MEDS ORDERED: DEXTROSE 50% 25 GM/50 ML VIAL IV PRN (10:41)
[2016-09-03] MEDS ORDERED: GLUCAGON 1 MG VIAL IM PRN (10:41)
[2016-09-03] MEDS: INSULIN LISPRO PROTAMINE/LISPRO 75/25 100 UNIT/ML SUBCUT SCH ×2 (12:51→18:35)
--- NOTE | 2016-09-03 13:59 | Cardiology Progress Note ---
Assessment and Plan (1) Chest pain Status: Acute Assessment and plan: Patient denies chest pain, heaviness and tightness today. This is clinically better after treating patient's chest wall pain. Current Visit: Yes (2) Coronary artery disease Status: Chronic Current Visit: No (3) Ischemic cardiomyopathy Status: Chronic Assessment and plan: Ejection fraction from most recent echo, March 2016, revealed concentric LVH and severe left ventricular hypokinesis with an estimated left ventricular ejection fraction of 14%. Moderate tricuspid regurgitation, mild pulmonic regurgitation and mild mitral regurgitation noted. Echo yesterday revealed a slightly improved ejection fraction of 15-20%. Severe tricuspid regurgitation, mild pulmonary valve regurgitation and aortic valve sclerosis also noted. Current Visit: Yes (4) Systolic CHF, acute on chronic Status: Acute Assessment and plan: BNP at outside facility was 5732. At [facility] it was noted to be 1554. Chest x-ray did not reveal any acute cardia pulmonary processes. Will add Lasix 40 mg IV twice daily. Will monitor creatinine closely with daily BMP. We will continue losartan for now. Will monitor creatinine and hold if needed. 09/03/16 Continue diuresing patient with Lasix 40 mg twice daily. Creatinine is slightly better today at 2.0 we will continue to monitor this with daily BMP. Current Visit: Yes (5) Renal insufficiency Status: Chronic Assessment and plan: This is slightly improved, creatinine is 2.0 today. Will monitor closely with daily BMP. If creatinine trends up, will consider discontinuing ARB and adding Imdur and hydrazine to assist in afterload reduction. Current Visit: Yes (6) Diabetes Status: Chronic Assessment and plan: Continue current plan of care. Current Visit: No (7) History of coronary artery bypass graft Status: Chronic Assessment and plan: History of CABG in 2004. Current Visit: No (8) Hyperlipidemia Status: Chronic Assessment and plan: Continue current plan of care with statin. Current Visit: No (9) Troponin level elevated Status: Chronic Assessment and plan: Troponin is noted to be 0.5. However, after reviewing past medical records it appears that patient has a chronically elevated troponin. Patient's creatinine is also elevated. BNP 1554. These are not concerning for ACS at this time. We will continue to monitor these. Current Visit: No (10) Dysphagia Status: Acute Assessment and plan: Management per GI. Current Visit: Yes (11) Snoring Status: Acute Assessment and plan: Dr. Sousa plans for HST this admission. Current Visit: Yes Cardiology - PN: Subj Interval history: Patient was seen on telemetry. Patient is resting in bed in no acute distress. Not requiring oxygen. He did well overnight and is without any new complaints this morning. He denies chest pain, heaviness and tightness. He tells me that his breathing has much improved. He has ambulated back and forth to the restroom without any difficulty or dyspnea. His creatinine has slightly improved today from yesterday. We will continue to diurese patient with Lasix. We will continue to closely monitor his creatinine. It is currently normal sinus rhythm with rates in the 70s without any overt arrhythmias or ectopy noted. Vital signs are stable. Patient is being worked up per GI and sleep medicine. If patient continues to improve he may be ready for discharge tomorrow. Exam (Progress Note) - Constitutional Vitals: Period Temp Pulse Resp BP Sys/Shook Pulse Ox Last 24 Hr 97.4 F-98 F 70-75 16-20 129-141/68-88 93-98 Exam: General appearance: no acute distress, over weight - Head Head exam: Present: normal inspection, normocephalic, atraumatic - Neck Neck exam: Present: normal inspection - Respiratory Respiratory exam: Present: Clear to auscultation throughout. Absent: accessory muscle use, chest wall tenderness - Cardiovascular Cardiovascular exam: Present: regular rate and rhythm, other. Absent: carotid bruit, gallop, rubs - GI/Abdominal GI/Abdominal exam: Present: normal bowel sounds, soft. Absent: distended, firm , tenderness - Extremities Exam Extremities exam: Present: edema (2+ edema to bilateral lower extremity), other (Decreased pulses to bilateral lower extremities). Absent: calf tenderness - Neurological Exam Neurological exam: Present: alert, oriented X3, normal gait - Psychiatric Psychiatric exam: Present: normal affect, normal mood. Absent: agitated, anxious, depressed - Skin Skin exam: Present: normal color, warm, dry. Absent: cyanosis, erythema Result/EKG - Labs CBC & BMP: 09/02/16 07:28 09/03/16 05:04 Lab Results: I have reviewed the past 24 hour labs Labs: Laboratory Results - last 24 hr 09/02/16 09/02/16 09/02/16 15:16 19:16 20:14 Sodium Potassium Chloride Carbon Dioxide Anion Gap BUN Creatinine GFR Calculation BUN/Creatinine Ratio Glucose POC Glucose 263 H 206 H Calculated Osmolality Calcium Magnesium Total Creatine Kinase 152 CK-MB (CK-2) 2.2 Troponin I 0.487 H 09/03/16 09/03/16 05:04 07:57 Sodium 143 Potassium 4.1 Chloride 105 Carbon Dioxide 25 Anion Gap 17.1 H BUN 33 H Creatinine 2.00 H GFR Calculation 50 BUN/Creatinine Ratio 16.00 Glucose 115 H POC Glucose 127 H Calculated Osmolality 292.0 Calcium 8.7 Magnesium 1.6 L Total Creatine Kinase CK-MB (CK-2) Troponin I Specialty Discharge - Follow Up or Referrals
--- NOTE | 2016-09-03 17:20 | Sleep Medicine Progress Note ---
Assessment and Plan (1) Diabetes Status: Chronic Current Visit: No (2) Congestive heart failure Status: Acute Current Visit: Yes (3) Obstructive sleep apnea Status: Acute Assessment and plan: Patient does have mild obstructive sleep apnea with O2 desaturation during sleep. We will initiate auto titration CPAP while hospitalized and set him up for formal outpatient CPAP titration to document resolution of hypoxia and good control. Current Visit: Yes Sleep Medicine Subjective Interval history: Patient did have mild obstructive sleep apnea by HST evaluation. Overall AHI was 8.6 and he did have O2 desaturation to lows of 83%. We will initiate auto titration CPAP while hospitalized and set him up for formal CPAP titration after discharge. Exam (Progress Note) - Constitutional Vitals: Period Temp Pulse Resp BP Sys/Shook Pulse Ox Last 24 Hr 97.0 F-98 F 70-78 16-20 132-143/68-89 93-99 Results - Labs CBC & BMP: 09/02/16 07:28 09/03/16 05:04 Lab Results: I have reviewed the past 24 hour labs Specialty Discharge - Follow Up or Referrals
--- NOTE | 2016-09-03 18:40 | Gastrointestinal Progress Note ---
Assessment and Plan (1) Dysphagia Status: Acute Assessment and plan: This patient has a slight amount of esophageal reflux and dysphagia type symptoms that he feels in his upper esophagus but really not enough to prevent him from eating or swallowing large pills. His symptoms are actually quite minimal and that would suspect that this is probably due to reflux with spasm. He does not want to pursue an upper endoscopy nor do I think he really needs this at this point especially with his ejection fraction of only 14%. We will obtain a barium swallow tomorrow to see if there is any significant narrowing that would require dilation at this time. His last upper endoscopy was July 2008. This will also serve to eliminate esophageal cancer as a possibility. 09/03/16-- The patient had a barium swallow that did not demonstrate any gross evidence of stricturing that was some impingement on the cricopharyngeal area, there were a few gastric polyps noted in the antrum and a small hiatal hernia noted as well. I suspect he does have some reflux resulting in his prior symptoms which appear to be much better on the Protonix twice daily. He is currently on aspirin and Lovenox would not be a good candidate for dilation at this time nor do I feel that he needs to pursue this at this time. If his reflux worsens over time or he is able to come off of anticoagulation we can certainly pursue endoscopy at that point. He is only minimally anemic. A prescription has been left for the Protonix twice daily in the front of his chart. He can follow-up with me as an outpatient in 2-3 months. Current Visit: Yes (2) GERD (gastroesophageal reflux disease) Status: Acute Assessment and plan: Patient does experience low-grade reflux symptoms which should be maximally suppressed with Protonix 40 mg p.o. twice daily. We will increase this to twice daily at this time. I strongly suspect that his dysphagia is likely secondary to esophageal spasm. Await barium swallow tomorrow. We will get an upper GI series to look for evidence of gastric ulcers etc. as well. 09/03/16--No high-grade stricture was seen although a small hiatal hernia was noted and some reflux identified as well. We can consider performing upper endoscopy with dilation sometime in the future should his symptoms warrant. I do not feel that he needs urgent endoscopy and would be difficult trying to get him off of the aspirin Lovenox at this point anyway. Continue therapy with Protonix 40 mg twice daily--prescription provided for discharge. Again, this patient can follow-up with me as needed in the future in 2-3 months. Current Visit: Yes (3) Abdominal bloating Status: Acute Assessment and plan: The barium swallow/upper GI series may also demonstrate evidence of gastroparesis there is retained food or fluid in the stomach. The patient may need a dedicated gastric emptying study in the future to quantify this change. He may benefit from Reglan if the diagnosis can be made. 09/03/16--No retained food or large bezoar was seen on upper GI series. He may require gastric emptying study formally down the road but I do not think he would benefit from this now. He is not experiencing any nausea or vomiting. He is safe for discharge from my standpoint. Current Visit: Yes (4) Anemia Status: Acute Assessment and plan: This is a low-grade anemia likely secondary to chronic disease. I will check iron studies to make sure this is not due to iron deficiency. We will be placing the patient on some Protonix twice daily to see if any improvement of the dysphagia can be seen with complete suppression of acidity which should theoretically decreased spasm in the esophagus. 09/03/16--see above. Current Visit: Yes Gastroenterology - PN: Subj Interval history: The patient is swallowing much better while taking Protonix 40 mg twice daily orally. He is able to handle his food quite nicely and is not experiencing significant dysphagia at this time. He had a barium swallow done yesterday which demonstrated no evidence of a high-grade obstruction/stricture. There appear to be some impingement on the cricopharyngeal region and the presence of some gastric polyps. Nothing that appeared consistent with malignancy. Exam (Progress Note) - Constitutional Vitals: Period Temp Pulse Resp BP Sys/Shook Pulse Ox Last 24 Hr 97.0 F-98 F 70-78 16-20 132-143/68-89 93-99 General appearance: no acute distress - Head Head exam: Present: normocephalic, atraumatic - Eye Eye exam: Present: EOMI Pupils: Present: DEANA - Respiratory Respiratory exam: Present: clear to auscultation bilaterally. Absent: rales, rhonchi, wheezes - Cardiovascular Cardiovascular exam: Present: regular rate and rhythm - GI/Abdominal GI/Abdominal exam: Present: normal bowel sounds, soft. Absent: distended, guarding, tenderness, rebound - Extremities Exam Extremities exam: Absent: edema - Neurological Exam Neurological exam: Present: alert, oriented X3 Results - Labs CBC & BMP: 09/02/16 07:28 09/03/16 05:04 Specialty Discharge - Follow Up or Referrals
[2016-09-03] MEDS: ATORVASTATIN 10 MG TABLET PO SCH (20:52)
[2016-09-04] MEDS: PANTOPRAZOLE 40 MG TABLET PO SCH (06:05)
[2016-09-04 06:51] LABS: Calcium 8.8 MG/DL (8.5-10.1); Osmolality,Calculated 288.3 MOS/KG (273-304); Potassium 4.3 MMOL/L (3.5-5.1)
[2016-09-04] MEDS: INSULIN LISPRO PROTAMINE/LISPRO 75/25 100 UNIT/ML SUBCUT SCH (08:04)
[2016-09-04] MEDS: FUROSEMIDE 40 MG/4 ML VIAL IV SCH (09:01)
[2016-09-04] MEDS: ENOXAPARIN 40 MG/0.4 ML SYRINGE SUBCUT SCH (09:03)
[2016-09-04] MEDS: MULTIVITAMIN (CENTRUM) TABLET PO SCH (09:04)
[2016-09-04] MEDS: ACETYLCYSTEINE 600 MG CAPSULE PO SCH (09:04)
[2016-09-04] MEDS: ASPIRIN EC 81 MG TABLET PO SCH (09:04)
[2016-09-04] MEDS: GABAPENTIN 100 MG CAPSULE PO SCH (09:04)
[2016-09-04] MEDS: amLODIPine 10 MG TABLET PO SCH (09:04)
[2016-09-04] MEDS: LOSARTAN 25 MG TABLET PO SCH (09:04)
[2016-09-04] MEDS: ACETAMINOPHEN 325 MG TABLET PO SCH (09:05)
[2016-09-04] MEDS: traMADol 50 MG TABLET PO SCH (09:05)
[2016-09-04 12:04] VITALS: BP 128/74
--- NOTE | 2016-09-04 12:10 | Discharge Summary ---
Hospital Course - Hospital Course Hospital Course: Mr. Fields, 61-year-old -[place] male, routinely followed by Dr. Campa. Patient was transferred from [facility] September 02, 2016 with complaints of chest tightness and shortness of breath. He was admitted to our telemetry unit. He was ruled out for acute coronary syndrome. He was treated for acute on chronic congestive heart failure secondary to severely reduced LVEF (EF 15-20%), [place] Heart Association classification III. He diuresed well during the hospital stay. Dr. Sousa was consulted to treat his on treated sleep apnea. His CPAP study was positive. He has been set up for routine treatment with Dr. Sousa. Patient has a history of renal insufficiency, chronic, stage II-III, also monitored closely during hospital stay. Patient's shortness of breath improved, chest discomfort improved. Gastroenterology was consulted. He underwent barium swallow which demonstrated no evidence of high-grade obstruction or stricture. Having felt him at maximal medical therapy, patient is being discharged home in stable condition. He is being given a one-month follow-up appoint with Dr. Campa. He is also being given a one-month follow-up appointment with Dr. Sousa. His Lasix has been being increased to 80 mg orally daily. At home, he was taking 20 mg daily. Also, his Protonix has been increased to twice daily dosing Also, he is being treated for musculoskeletal component to his chest pain with Neurontin 100 mg orally 3 times daily 1 week, Ultram 50 mg orally twice daily 1 week, acetaminophen 325 mg orally twice daily 1 week Not on a beta-patricia at this time for previous history of fatigue while taking. May consider re-challenging outpatient - Time spent with patient Time with patient DS: Greater than 30 minutes Diagnosis - Discharge Diagnosis (1) Sleep apnea Status: Chronic (2) Congestive heart failure Status: Resolved (3) Chest pain Status: Resolved (4) Diabetes Status: Chronic (5) Ischemic cardiomyopathy Status: Chronic (6) Renal insufficiency Status: Chronic (7) Hyperlipidemia Status: Chronic (8) History of coronary artery bypass graft Status: Chronic (9) Chronic pain Status: Chronic (10) Coronary artery disease Status: Chronic (11) Troponin level elevated Status: Chronic (12) Systolic CHF, acute on chronic Status: Resolved (13) Atypical chest pain Status: Resolved (14) Dysphagia Status: Chronic Specialty Discharge - Follow Up or Referrals Follow up with: Nancie Sousa MD [Physician] - 1 Month Dl Campa MD [Physician] - 1 Month (BMP, magnesium, CBC) Discharge Plan - Discharge Data Disposition: Disch To Home/Self Care Condition at Discharge: Stable Discharge Diet: heart healthy, low salt diet Activity: resume usual activities as tolerated Hygiene: no restrictions Weight Bearing at Discharge: full weight bearing Driving: not until seen by doctor Contact your physician if you experience:: fever over 101, Difficulty voiding, Redness or swelling, Nausea/Vomiting, Shortness of breath, Bleeding, pain uncontrolled by pain medications - Discharge Medications New Acetaminophen Tab [Tylenol Tab] 325 mg PO BID #14 tablet Pantoprazole Tab [Protonix Tab] 40 mg PO BID@0700,1900 #60 tablet traMADol TAB [Ultram] 50 mg PO BID #14 tablet Gabapentin Cap/Tab [Neurontin Cap/Tab] 100 mg PO TID #21 capsule Furosemide Tab [Lasix Tab] 80 mg PO DAILY #30 tablet Continue Insulin Lispro Prot/Lisp 75/25 [HumaLOG Mix 75/25] 20 units SUBCUT QAM Aspirin [Ecotrin] 81 mg PO DAILY Multivitamin [Multivitamins] 1 each PO DAILY amLODIPine [Norvasc] 10 mg PO DAILY HYDROcodone/ACETAMIN 10-325 [[place] 10-325] 1 tablet PO Q6H Atorvastatin [Lipitor] 10 mg PO BEDTIME Insulin Lispro Prot/Lisp 75/25 [HumaLOG Mix 75/25] 10 units SUBCUT QPM Losartan [Cozaar] 25 mg PO BID #60 tablet Discontinued Pantoprazole Tab [Protonix Tab] 40 mg PO DAILY Furosemide Tab [Lasix Tab] 40 mg PO DAILY - Follow Up or Referral Follow Up: Dl Campa MD [Physician] - 1 Month (BMP, magnesium, CBC) Nancie Sousa MD [Physician] - 1 Month - Forms/Instructions Instructions: Heart Failure (DC), Chest Pain (ED), Sleep Apnea Syndrome (DC) Exam - Constitutional Vitals: Period Temp Pulse Resp BP Sys/Shook Pulse Ox Last 24 Hr 96.3 F-98 F 69-82 16-20 105-145/70-89 94-99 Exam: General: [Appears well with no apparent distress.] [Pleasant and cooperative. ] [Appears comfortable.] HEENT: [PERRL, normocephalic, atraumatic. Mucous membranes moist. No jaundice noted. Conjunctiva moist and clear, sclerae anicteric] Neck: No JVD/HJR, no thyromegaly or lymphadenopathy noted. No carotid bruit appreciated Cardiac: [Regular rate and rhythm.] [No murmur rub or gallop.] PMI is nondisplaced. Lungs: [Clear to auscultation without accessory muscle use to assist the respiratory pattern.] Oxygen in use via nasal cannula Abdomen: Soft, bowel sounds normoactive. Nontender and nondistended. No abdominal bruit or thrill noted. No masses noted. Musculoskeletal: No fluid collection. Decreased range of motion is noted. Extremities: No clubbing, cyanosis noted. [Trace bilateral lower extremity edema] Upper extremity pulses 2+. Lower extremity pulses 1+. Capillary refill less than 3 seconds. Skin: No unusual lesions or rashes. No skin breakdown appreciated. Neuro: Awake, alert and oriented 3. Moves all extremities well without hemiparesis or paralysis. No essential tremor is appreciated. Discharge Results Labs on day of discharge: Labs from last 24 hours 09/04/16 09/04/16 09/04/16 11:37 07:40 05:58 Sodium 141 Potassium 4.3 Chloride 103 Carbon Dioxide 28 Anion Gap 14.3 BUN 35 H Creatinine 2.20 H GFR Calculation 45 BUN/Creatinine Ratio 15.00 Glucose 95 POC Glucose 105 73 L Calculated Osmolality 288.3 Calcium 8.8 09/03/16 09/03/16 09/03/16 20:04 17:11 11:28 Sodium Potassium Chloride Carbon Dioxide Anion Gap BUN Creatinine GFR Calculation BUN/Creatinine Ratio Glucose POC Glucose 115 H 129 H 154 H Calculated Osmolality Calcium - Imaging and Cardiology Cardiology Procedure: report reviewed by me Procedure: Chest x-ray: report reviewed by me DS: Provider Date of admission: 09/02/16 04:11 Primary care physician: . No PCP Attending physician on admission: Dl Campa MD Consults: 09/02/16 06:55 Consult to Pharmacy [CONS] Routine Reason for Pharmacy Consult: Adjust Meds Renal Funct 09/02/16 10:35 Consult to Physician [CONS] Routine Comment: Dysphagia and abdominal pain Consulting Provider: When should Consulting Provider be notified: Now Consult to Specialist Group: Gastroenterology When should Consulting Provider be notified: Now 09/02/16 10:37 Consult to Physician [CONS] Routine Comment: Possible Sleep apnea Consulting Provider: Nancie Sousa When should Consulting Provider be notified: Now 09/02/16 11:14 Consult to Sleep Center [CONS] Routine Reason for Sleep Center: Sleep Center Physician Discharging clinician: Monique Monzon NP Expected date of discharge: 09/04/16
--- NOTE | 2016-09-04 12:52 | Sleep Medicine Progress Note ---
Assessment and Plan (1) Diabetes Status: Chronic Current Visit: No (2) Congestive heart failure Status: Resolved Current Visit: Yes (3) Obstructive sleep apnea Status: Acute Assessment and plan: Patient will be scheduled for outpatient CPAP/BiPAP titration as needed. Current Visit: Yes Sleep Medicine Subjective Interval history: Patient did use auto BiPAP last night. He felt that he did okay with it but on review of the downloaded compliance data, he appeared to have worse sleep apnea with it that he did without. He is to be discharged today and we therefore will not send him home on a device. We will get him in for a full night titration in the sleep lab as soon as possible. With the complexity of his sleep apnea and results with auto BiPAP, we need to formally titrate him in the lab. Exam (Progress Note) - Constitutional Vitals: Period Temp Pulse Resp BP Sys/Shook Pulse Ox Last 24 Hr 96.3 F-98 F 69-82 16-20 105-145/70-89 94-99 Results - Labs CBC & BMP: 09/02/16 07:28 09/04/16 05:58 Lab Results: I have reviewed the past 24 hour labs Specialty Discharge - Follow Up or Referrals Follow up with: Dl Campa MD [Physician] - 10/02/16 10:40 am (BMP, magnesium, CBC Be there at 10:30 am for lab work.) Nancie Sousa MD [Physician] - 1 Month
== END 2016-09-04 14:30 | disposition home or self-care (01) | DRG 291 ==
LOC: EDUNIT# → EDBD → N.ED 03:04 → N.EDINP 04:11 → N.TELEN 04:53
PROVIDERS: ADMIT Internal Medicine Cardiovascular Disease; ATTEND Internal Medicine Cardiovascular Disease

== ENCOUNTER 2017-02-04 05:19 | Inpatient (IN) ==
--- NOTE | 2017-02-04 05:40 | Emergency Department Note ---
IMustapha Brooke, am scribing for, and in the presence of, Wilfred Garcia MD 05:30. IRadha Kevin Lee, MD, personally performed the services described in this documentation, ascribed by Suki Luciano in my presence, and it is both accurate and complete 540 . Arrival - Arrival Stated Complaint: short of breath Limitations: No Limitations Source: Patient, EMS, RN Notes Reviewed Time Seen by Provider: 02/04/17 05:20 - History of Present Illness HPI Narrative: Patient is a 61 year old male who was brought into the ED by EMS, from [facility], with c/o shortness of breath and abdominal distention. Patient says he woke up, yesterday morning, with the shortness of breath. Patient denies having chest pain but says he does have "chest discomfort." Patient has no other complaints. He has PMHx of CHF, CAD, HTN, AK, PVD, CAGB, anxiety, dyslipidemia, IDDM, renal failure, renal insufficiency, GERD, esophageal stricture, herniated disk, degenerative disk disease, and arthritis. Allergies/Adverse Reactions: Allergies Allergy/AdvReac Type Severity Reaction Status Date / Time codeine Allergy RASH Verified 02/04/17 05:35 Penicillins Allergy ITCHING Verified 02/04/17 05:35 morphine AdvReac Hallucinati Verified 02/04/17 05:35 ng Home Medications: Home Medications Medication Instructions Recorded Confirmed Type Aspirin [Ecotrin] 81 mg PO DAILY 09/29/14 09/02/16 History Atorvastatin [Lipitor] 10 mg PO BEDTIME 09/29/14 09/02/16 History HYDROcodone/ACETAMIN 10-325 [[place] 1 tablet PO Q6H 09/29/14 09/02/16 History 10-325] Insulin Lispro Prot/Lisp 75/25 10 units SUBCUT QPM 09/29/14 09/02/16 History [HumaLOG Mix 75/25] Insulin Lispro Prot/Lisp 75/25 20 units SUBCUT QAM 09/29/14 09/02/16 History [HumaLOG Mix 75/25] Multivitamin [Multivitamins] 1 each PO DAILY 09/29/14 09/02/16 History amLODIPine [Norvasc] 10 mg PO DAILY 09/29/14 09/02/16 History Losartan [Cozaar] 25 mg PO BID #60 tablet 10/02/14 09/02/16 Rx Acetaminophen Tab [Tylenol Tab] 325 mg PO BID #14 tablet 09/04/16 Rx Furosemide Tab [Lasix Tab] 80 mg PO DAILY #30 tablet 09/04/16 Rx Gabapentin Cap/Tab [Neurontin 100 mg PO TID #21 capsule 09/04/16 Rx Cap/Tab] Pantoprazole Tab [Protonix Tab] 40 mg PO BID@0700,1900 #60 tablet 09/04/16 Rx traMADol TAB [Ultram] 50 mg PO BID #14 tablet 09/04/16 Rx Review of System - Review of System 12 point system: reviewed and no additional remarkable complaints except as stated - Review of System Constitutional: Absent: fever Respiratory: Present: other (shortness of breath). Absent: respiratory distress Cardiovascular: Absent: chest pain (chest discomfort) Gastrointestinal: Present: other (ascites) Skin: Absent: rash Medical,Surgical,& Family Hx - Medical History Cardio: History of: CHF, CAD, Hypertension, AK, PVD, Cardiovascular Problems ( CABG, AK) Psychological: History of: Anxiety Disorders Endocrine: History of: Diabetes Mellitus (IDDM), Dyslipidemia Renal: History of: Renal Failure, Renal Problems (Renal insufficiency) Gastrointestinal: History of: GERD, GI Problems (Esophageal stricture) Musculoskeletal: History of: Back/Neck Problems (Back surgery X 3), Degenerative Disk Disease, Herniated Disk, Musculoskeletal Problems (Arthritis) No history of: Amputation - Surgical History Cardiac Surgeries: Sugical HX of: Cardiac Catheterization, Cardiac Surgery Thoracic Surgeries: Patient denies;: Lobectomy Neurologic Surgeries: Patient denies: Neurologic Surgery HEENT Surgeries: Surgical HX of: Eye Surgery Patient denies: Tonsilectomy & Adenoidectomy - Family History Family History: Reports;: Family Diabetes, Family Heart Disease, Family Hypertension, Family Stroke - Social History Smoking Status: Former smoker Exam Vital Signs: Vital Signs Temperature 99.6 F 02/04/17 05:24 Pulse Rate 95 H 02/04/17 05:24 Respiratory Rate 14 02/04/17 05:24 Blood Pressure 133/81 02/04/17 05:24 O2 Sat by Pulse Oximetry 99 02/04/17 05:24 - General General appearance: alert, in distress (mild respiratory) - Head Head exam: Present: atraumatic, normocephalic - Eye Eye exam: Present: normal appearance, PERRL, EOMI - ENT ENT exam: Present: normal exam - Neck Neck exam: Present: normal inspection - Chest Chest inspection: Present: normal inspection, symmetric chest wall rise - Respiratory Respiratory exam: Present: rales (bilateral), other (Mild shortness of breath) - Cardiovascular Cardiovascular exam: Present: regular rate, normal rhythm, normal heart sounds - Abdominal Exam Abdominal exam: Present: distention, normal bowel sounds, ascites (?). Absent: soft, tenderness - Extremities Exam Extremities exam: Present: pedal edema (bilateral lower extremity edema up to thighs.) - Back Exam Back exam: Present: normal inspection - Neurological Exam Neurological exam: Present: alert, oriented X3 - Psychiatric Psychiatric exam: Present: normal affect, normal mood - Skin Skin exam: Present: warm, dry, intact, normal color Results - Labs Lab Results: I have reviewed the patients labs (from OSH see scanned reports) - Diagnostic Findings Procedure: Chest x-ray: image reviewed by me (mild CHF severe cardiomegaly) Disposition Clinical Impression: acute on chronic CHF, Acute on chronic renal failure, SOB (shortness of breath) Case discussed with: patient Disposition: Still a Patient Condition: Guarded
[2017-02-04] MEDS ORDERED: GLUCAGON 1 MG VIAL IM PRN (05:41)
[2017-02-04] MEDS ORDERED: ONDANSETRON 4 MG/2 ML VIAL IV PRN (05:41)
[2017-02-04] MEDS ORDERED: DEXTROSE 50% 25 GM/50 ML SYRINGE IV PRN (05:41)
[2017-02-04] MEDS ORDERED: MAGNESIUM SULF RIDER 4 GM in PREMIX 1 EACH IV PRN (05:41)
[2017-02-04] MEDS ORDERED: MAGNESIUM SULF RIDER 2 GM in PREMIX 1 EACH IV PRN (05:41)
[2017-02-04 06:13] LABS: Basophils # 0.1 10*3/uL (0.0-0.2); Basophils % 0.3 % (0.0-0.8); Hematocrit 35.1 VOL% (42.0-52.0); Hemoglobin 11.7 GM/DL (14.0-18.0); Immature Granulocytes % 0.5 %; Immature Granulocytes Absolute 0.09 #; Lymphocytes # 0.7 10*3/uL (1.4-4.0); Lymphocytes % 3.9 % (21.2-54.2); Mean Corpuscular HGB Conc 33.3 GM/DL (32-36); Mean Corpuscular Hemoglobin 31 PG (27-34); Mean Corpuscular Volume 92.6 FL (87-102); Mean Platelet Volume 12.3 FL (9.6-12.0); Monocytes # 0.9 10*3/uL (0.11-0.8); Monocytes % 5.2 % (1.7-12.7); Neutrophils % 90.1 % (38.7-73.9); Platelet Count 135 T/CUMM (130-400); Red Blood Count 3.79 MC/CUMM (3.8-5.5); Red Cell Distribution Width 16.4 % (9.3-17.3); White Blood Count 16.6 T/CUMM (4-12)
[2017-02-04 06:50] LABS: Albumin 3.2 G/DL (3.4-5.0); Bilirubin,Total 2.8 MG/DL (0.2-1.0); Calcium 8.8 MG/DL (8.5-10.1); Magnesium 2.1 MG/DL (1.8-2.4); Osmolality,Calculated 282.9 MOS/KG (273-304); Potassium 5.4 MMOL/L (3.5-5.1); Total Protein 8.5 G/DL (6.4-8.3)
[2017-02-04 06:51] LABS: Troponin I Only 0.533 NG/ML (0.00-0.045)
[2017-02-04 06:53] LABS: Band Neutrophils 6 % (0-10); Hypochromasia 1+; Lymphocytes 5 % (20-55); Ovalocytes Slight; Platelet Estimate Normal; Segmented Neutrophils 78 % (50-85); Total Cells Counted 100
--- NOTE | 2017-02-04 08:12 | EKG Report ---
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
[2017-02-04] MEDS ORDERED: amLODIPine 10 MG TABLET PO SCH (09:00)
[2017-02-04] MEDS ORDERED: traMADol 50 MG TABLET PO SCH (09:00)
[2017-02-04] MEDS: ASPIRIN EC 81 MG TABLET PO SCH (09:59)
[2017-02-04] MEDS: GABAPENTIN 100 MG CAPSULE PO SCH ×3 (10:00→21:49)
[2017-02-04] MEDS: ENOXAPARIN 30 MG/0.3 ML SYRINGE SUBCUT SCH (10:00)
[2017-02-04] MEDS: INSULIN REGULAR 100 UNIT/ML SUBCUT SCH ×4 (10:00→22:07)
[2017-02-04] MEDS: CARVEDILOL 6.25 MG TABLET PO SCH ×2 (10:00→21:50)
[2017-02-04] MEDS ORDERED: ACETAMINOPHEN 325 MG TABLET PO PRN (10:22)
[2017-02-04] MEDS ORDERED: ZALEPLON 5 MG CAPSULE PO PRN (10:22)
--- NOTE | 2017-02-04 10:31 | EKG Report ---
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
[2017-02-04] MEDS ORDERED: LEVOFLOXACIN INJ 500 MG in PREMIX 1 EACH IV ONE (11:00)
--- NOTE | 2017-02-04 11:01 | Ultrasound Report ---
History: Right lower extremity edema and erythema Date: 02/04/2017 Study: Bilateral lower extremity color-flow venous Doppler study Comparison exam: No previous similar Color Doppler, wave form analysis, and compression analysis of the deep veins of both lower extremities from the common femoral vein level through the popliteal vein level shows that the veins are readily compressible. There is no abnormal intraluminal material to suggest thrombus. Waveform analysis is unremarkable. Ultrasound images were captured and archived. There is nonspecific edema of the subcutaneous fat at the distal thigh level on the right. Some occasional borderline prominent right inguinal lymph nodes are noted. Impression: No evidence of DVT Soft tissue edema right lower extremity. Borderline prominent right inguinal lymph nodes PROCEDURE INTERPRETED AT [facility] DEPARTMENT OF RADIOLOGY Final Report Signed by: Dr. Jennifer Medrano
--- NOTE | 2017-02-04 11:32 | Cardiology History & Physical ---
Mehrdad Cline Lesley, JOANNA, am scribing for, and in the presence of, Bianka Jara DO 11:29. Assessment and Plan - Time spent with patient Time spent with patient: Greater than 30 minutes (1) Lower extremity edema Status: Acute Assessment and plan: SEE PLAN OF CARE LISTED BELOW Current Visit: Yes (2) Abdominal bloating Status: Acute Assessment and plan: SEE PLAN OF CARE LISTED BELOW Current Visit: No (3) History of coronary artery bypass graft Status: Chronic Assessment and plan: SEE PLAN OF CARE LISTED BELOW Current Visit: No (4) Hyperlipidemia Status: Chronic Assessment and plan: SEE PLAN OF CARE LISTED BELOW Current Visit: No (5) Ischemic cardiomyopathy Status: Chronic Assessment and plan: SEE PLAN OF CARE LISTED BELOW Current Visit: No (6) Renal insufficiency Status: Chronic Assessment and plan: SEE PLAN OF CARE LISTED BELOW Current Visit: No (7) Troponin level elevated Status: Acute Assessment and plan: SEE PLAN OF CARE LISTED BELOW Current Visit: No (8) Congestive heart failure Status: Chronic Assessment and plan: SEE PLAN OF CARE LISTED BELOW Current Visit: Yes Qualifiers: Congestive heart failure type: combined Congestive heart failure chronicity : acute on chronic Qualified Code(s): I50.43 - Acute on chronic combined systolic (congestive) and diastolic (congestive) heart failure History of Present Illness Chief complaint: Shortness of breath, distended abdomen History of present illness: 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 Fields is a 61 year old black male with a known history of coronary artery disease, he is known to Dr. Campa. Patient was transferred from [facility] for shortness of breath and abdominal distention. He has significant cardiac risk factors that include ischemic cardiomyopathy (NYHA Class III), previous NE, known CAD, hyperlipidemia, hypertension, PVD, obesity, systolic and diastolic heart failure, type 2 diabetes, former smoker (he reports he quit in 1989), and family history of heart disease. He is status post CABG 3 in in 2004. Patient has ROCKWELL to LAD, vein graft to OM and vein graft to RCA. Past medical history includes 3 previous back surgeries, GI bleed, osteoarthritis. His last stress EKG done 04/[address] depression in lead II, lead III, aVL, aVF, V4, V5, and V6. This is an abnormal perfusion study consistent with mostly scar tissue and minimal ischemia. Heart rate recovery was normal. Left ventricular cavity was noted to be markedly enlarged. Left ventricular ejection fraction was calculated at 17% with left ventricular global function severely reduced. The test was suggestive of low to moderate risk for future cardiovascular events. Most recent echocardiogram done 08/2016: LVEF of 15-20%, mild mitral valve regurgitation, severe TR regurgitation with PAP of 44 mmHg. His last heart catheterization was done in October 2011 and revealed occluded vein graft to OM. The OM had an extreme angle making it very difficult if not impossible for intervention and intervention was not attempted. The patient reports that he became more acutely short of breath yesterday upon waking. He reports mild chest discomfort that accompanies his shortness of breath, he reports severe dyspnea on exertion as well as dyspnea at rest. He denies radiation of chest discomfort and states the pain was a 5 on a scale of 1 -10. He confirms that the chest discomfort was present and related to his shortness of breath. He denies nausea, vomiting, diarrhea, diaphoresis, heart palpitations, dizziness, or syncope. He denies this chest discomfort is worsened by exertion. The patient notes abdominal distention that has worsened in the last 3 days. He denies abdominal pain, melena, nausea, vomiting or diarrhea. He states his last bowel movement was 1 day ago and this was normal. He denies taking anticoagulants, he does take an aspirin daily. He reports daily compliance with all medications. The patient was transferred from [facility] to [place]'s emergency department, and was monitored in ICU overnight. Records from outside facility consist of labs: Troponin 0 0.618, creatinine 4.2, sodium 132, potassium 5.4, INR 1.67. EKG revealed sinus rhythm rate in the 90s. Telemetry strips are consistent with that. Patient confirms bilateral lower extremity edema in the right leg, shortness of breath, and abdominal distention. The patient reports 2 pillow orthopnea. Denies fever, chills, cough, nausea, vomiting, and melena. The patient confirms taking all of his medications daily, including his Lasix. The patient was seen and examined in the ICU. The patient was resting in bed in no acute distress. The patient becomes easily short of breath with conversation. The patient is on 2 L of oxygen via nasal cannula. He currently denies chest pain. His troponin has remained flat, noted at outside facility to be 0.618 with last troponin drawn this morning, 0.533. BNP is 3529. Creatinine noted at 4.2. His INR is 1.67, and the patient denies taking anticoagulants. Of note, WBCs 16.6, H&H 11.7 and 35.1. Sodium 129, potassium 5.4, creatinine 4.2, BUN 65. EKG shows sinus rhythm and is actually somewhat improved when compared to the EKG done 10/2016. With elevated WBCs, plan to get a chest x-ray and urinalysis. Begin diuresing the patient with IV Lasix, maintain strict I's and O's and daily weights. Will resume home medications and hold losartan due to hyperkalemia and initiate a beta-patricia. Start the patient on Accu-Cheks every 6 hours with sliding scale. If considering ICD on this admission, will need to repeat echo. Will get bilateral lower extremity venous Doppler due to erythema, edema and tenderness noted in the right lower extremity. ASSESSMENT/PLAN: 1. Acutely decompensated chronic heart failure (NYHA Class IV) - CXR, start IV diruetics, strict I & O, daily weights 2. Ischemic cardiomyopathy - cycle Troponins, initite beta patricia 3. Acute on chronic renal failure. creatinine up to 4 from low/mid 2 range - IV diuretics, nephrology consult, renal u/s, zhang hold ARB 4. Right lower extremity edema and erythema 5. CAD - Lovenox initiated with dose adjusted for CRF, continue meds and monitor closely 6. Hypertension - monitor and adjust meds as needed 7. Diabetes - Accuchecks, SSI 8. Leukocytosis - CXR, UA - Abx Home Medications Medication Instructions Recorded Confirmed Type Aspirin [Ecotrin] 81 mg PO DAILY 09/29/14 09/02/16 History Atorvastatin [Lipitor] 10 mg PO BEDTIME 09/29/14 09/02/16 History HYDROcodone/ACETAMIN 10-325 [[place] 1 tablet PO Q6H 09/29/14 09/02/16 History 10-325] Insulin Lispro Prot/Lisp 75/25 10 units SUBCUT QPM 09/29/14 09/02/16 History [HumaLOG Mix 75/25] Insulin Lispro Prot/Lisp 75/25 20 units SUBCUT QAM 09/29/14 09/02/16 History [HumaLOG Mix 75/25] Multivitamin [Multivitamins] 1 each PO DAILY 09/29/14 09/02/16 History amLODIPine [Norvasc] 10 mg PO DAILY 09/29/14 09/02/16 History Losartan [Cozaar] 25 mg PO BID #60 tablet 10/02/14 09/02/16 Rx Acetaminophen Tab [Tylenol Tab] 325 mg PO BID #14 tablet 09/04/16 Rx Furosemide Tab [Lasix Tab] 80 mg PO DAILY #30 tablet 09/04/16 Rx Gabapentin Cap/Tab [Neurontin 100 mg PO TID #21 capsule 09/04/16 Rx Cap/Tab] Pantoprazole Tab [Protonix Tab] 40 mg PO BID@0700,1900 #60 tablet 09/04/16 Rx traMADol TAB [Ultram] 50 mg PO BID #14 tablet 09/04/16 Rx Allergies Allergy/AdvReac Type Severity Reaction Status Date / Time codeine Allergy RASH Verified 02/04/17 05:35 Penicillins Allergy ITCHING Verified 02/04/17 05:35 morphine AdvReac Hallucinati Verified 02/04/17 05:35 ng - Constitutional Constitutional: Present: fatigue. Absent: chills, daytime sleepiness - EENT Eyes: Absent: blurry vision Ears: Absent: decreased hearing Nose, mouth and throat: Absent: dysphagia, headache(s) - Cardiovascular Cardiovascular: Present: dyspnea (at rest), dyspnea on exertion, edema, orthopnea. Absent: chest pain with activity, diaphoresis, radiating jaw, neck or arm pain, palpitations - Respiratory Respiratory: Present: cough, dyspnea, dyspnea on exertion, wheezing - Gastrointestinal Gastrointestinal: Present: bloating. Absent: abdominal pain, change in bowel habits, coffee ground emesis, constipation, melena, nausea, vomiting - Genitourinary Genitourinary: Absent: difficulty urinating, dysuria, hematuria - Musculoskeletal Musculoskeletal: Present: arthralgias, back pain - Neurological Neurological: Absent: abnormal gait, abnormal speech, confusion, dizziness, frequent falls - Psychiatric Psychiatric: Present: anxiety - Endocrine Endocrine: Present: fatigue. Absent: cold intolerance, heat intolerance - Hematologic/Lymphatic Hematologic/Lymphatic: Present: easy bruising. Absent: easy bleeding Medical,Surgical,& Family Hx - Medical History Cardio: History of: CHF (NYHA IV), CAD, Hypertension, [place], PVD, Cardiovascular Problems (CABG, [place]) Psychological: History of: Anxiety Disorders Endocrine: History of: Diabetes Mellitus (IDDM), Dyslipidemia Respiratory: History of: COPD Renal: History of: Renal Failure, Renal Problems (Renal insufficiency) Gastrointestinal: History of: GERD, GI Problems (Esophageal stricture) Musculoskeletal: History of: Back/Neck Problems (Back surgery X 3), Degenerative Disk Disease, Herniated Disk, Musculoskeletal Problems (Arthritis) No history of: Amputation - Surgical History Cardiac Surgeries: Sugical HX of: Cardiac Catheterization, Cardiac Surgery ( CABG in ) Thoracic Surgeries: Patient denies;: Lobectomy Neurologic Surgeries: Patient denies: Neurologic Surgery HEENT Surgeries: Surgical HX of: Eye Surgery Patient denies: Tonsilectomy & Adenoidectomy - Family History Family History: Reports;: Family Diabetes, Family Heart Disease, Family Hypertension, Family Stroke - Social History Smoking Status: Former smoker Frequency of Alcohol Use: Occasionally Type of Drug Use: None Marital Status: Single Lives With:: Alone Cardiology Physical Exam - Constitutional Vitals: Vital Signs Temp Pulse Resp BP Pulse Ox 97.2 F L 96 H 27 H 131/83 100 02/04/17 06:26 02/04/17 07:00 02/04/17 07:00 02/04/17 07:00 02/04/17 07:00 Intake and Output 02/03/17 02/04/17 02/04/17 23:59 07:59 15:59 Other: # Voids 0 # Bowel Movements 0 Weight 208 lb Patient Weight 02/04/17 23:59 Weight 208 lb Exam: General: [Appears well with mild respiratory distress.] [Pleasant and cooperative. ] [Appears tachypneic] HEENT: [PERRL, normocephalic, atraumatic]. [Mucous membranes moist.] [No jaundice noted.] [Conjunctiva moist and clear, sclerae anicteric.] Neck: JVD present, no thyromegaly or lymphadenopathy noted.] [ No carotid bruit appreciated.] Cardiac: [Regular rate and rhythm.] [S3 gallop with laterally displaced PMI and murmur of mitral regurgitation and aortic sclerosis] Lungs: [Wheezing noted bilaterally, decreased throughout, no accessory muscle use to assist the respiratory pattern.] bilateral rales with globally decreased breath sound Abdomen: [Distended, bowel sounds normoactive.] [Nontender.] [No abdominal bruit or thrill noted.] [No masses noted.] Musculoskeletal: [No fluid collection.] [Full range of motion is noted in bed. ] Extremities: [No clubbing, cyanosis noted.] Anasarca and pre-sacral edema. Skin: [No unusual lesions or rashes.] [No skin breakdown appreciated.] Neuro: [Awake, alert and oriented 3.] [Moves all extremities well without hemiparesis or paralysis.] [No essential tremor is appreciated.] Result/EKG - Labs CBC & BMP: 02/04/17 05:49 02/04/17 05:49 Lab Results: I have reviewed the past 24 hour labs Labs: Laboratory Results - last 24 hr 02/04/17 02/04/17 02/04/17 05:49 05:49 05:49 WBC 16.6 H RBC 3.79 L Hgb 11.7 L Hct 35.1 L MCV 92.6 MCH 31 MCHC 33.3 RDW 16.4 Plt Count 135 MPV 12.3 H Neut % (Auto) 90.1 H Lymph % (Auto) 3.9 L [facility] % (Auto) 5.2 Eos % (Auto) 0.0 Baso % (Auto) 0.3 Neut # (Auto) 15.0 H Lymph # (Auto) 0.7 L [facility] # (Auto) 0.9 H Eos # (Auto) 0.0 Baso # (Auto) 0.1 Total Counted 100 Immature Gran % 0.5 Nucleated RBC % 0.0 Immature Gran # 0.09 Segmented Neutrophils 78 Band Neutrophils 6 Lymphocytes 5 L Monocytes 11 Nucleated RBCs # 0.00 Platelet Estimate Normal Immature Plt Fraction 0.0 Hypochromasia 1+ Ovalocytes Slight Sodium 129 L Potassium 5.4 H Chloride 94 L Carbon Dioxide 21 Anion Gap 19.4 H BUN 65 H Creatinine 4.20 H GFR Calculation 20 BUN/Creatinine Ratio 15.00 Glucose 204 H POC Glucose Calculated Osmolality 282.9 Calcium 8.8 Magnesium 2.1 Total Bilirubin 2.80 H AST 142 H ALT 49 Alkaline Phosphatase 151 H Troponin I 0.533 H B-Natriuretic Peptide 3529 H Total Protein 8.5 H Albumin 3.2 L Globulin 5.3 H Albumin/Globulin Ratio 0.6 L 02/04/17 06:30 WBC RBC Hgb Hct MCV MCH MCHC RDW Plt Count MPV Neut % (Auto) Lymph % (Auto) [facility] % (Auto) Eos % (Auto) Baso % (Auto) Neut # (Auto) Lymph # (Auto) [facility] # (Auto) Eos # (Auto) Baso # (Auto) Total Counted Immature Gran % Nucleated RBC % Immature Gran # Segmented Neutrophils Band Neutrophils Lymphocytes Monocytes Nucleated RBCs # Platelet Estimate Immature Plt Fraction Hypochromasia Ovalocytes Sodium Potassium Chloride Carbon Dioxide Anion Gap BUN Creatinine GFR Calculation BUN/Creatinine Ratio Glucose POC Glucose 185 H Calculated Osmolality Calcium Magnesium Total Bilirubin AST ALT Alkaline Phosphatase Troponin I B-Natriuretic Peptide Total Protein Albumin Globulin Albumin/Globulin Ratio - EKG EKG results: interpreted by me, sinus rhythm Estefani Cline Shea, , personally performed the services described in this documentation, ascribed by Sheila Cronin NP in my presence, and it is both accurate and complete 132 .
[2017-02-04] MEDS ORDERED: FUROSEMIDE 40 MG/4 ML VIAL IV SCH ×2 (12:00→16:00)
[2017-02-04] MEDS ORDERED: NALOXONE 0.4 MG/ML VIAL ONE (12:38)
[2017-02-04] MEDS: PHENYLEPHRINE DRIP 40 MG/250 ML PREMIX IV SCH ×2 (12:40→19:21)
[2017-02-04] MEDS ORDERED: PHENYLEPHRINE DRIP 40 MG/250 ML PREMIX IV ONE (12:45)
--- NOTE | 2017-02-04 12:45 | XRay Report ---
XR chest 1V Indication: Shortness of breath. Chest one view: Comparison earlier today. Postoperative changes median sternotomy, marked pulmonary hypoinflation, atelectasis, and cardiomegaly are all stable. No new infiltrates are shown. Impression: No change. PROCEDURE INTERPRETED AT [facility] DEPARTMENT OF RADIOLOGY Final Report Signed by: Omega Quigley M.D.
--- NOTE | 2017-02-04 12:59 | Anesthesia Procedures ---
Anesthesia Procedures - Intubation Time out performed intubation: Yes Sedative: Etomidate (propofol 50mg) Mg given sedative: 16 Laryngoscope: Ken (3) ET Tube Size: 7.5 ET Tube Uncuffed: No Tube Secured Depth (cm): 23 Tube Placement Confirmation: visualized tube passing through cords, equal breath sounds bilaterally, no breath sounds over epigastrium, confirmation by capnometry, confirmation detector color change Patient tolerated procedure intubation: no complications Intubation Complications: none Additional Commets: Called to ccu [address] Jara at head of bed on arrival. Intubated with 7.5 ett with stylet.
[2017-02-04] MEDS ORDERED: ALBUTEROL 1.25 MG/3 ML NEB RESP TX SCH (13:00)
--- NOTE | 2017-02-04 13:12 | Ultrasound Report ---
Renal ultrasound. Indication: Renal failure. The kidneys are normal in size. The right kidney measures 11.1 x 6.0 x 5.3 cm in the left measures 11.3 x 6.2 x 5.8 cm. The parenchymal echogenicity is normal. The cortical thickness is normal. No hydronephrosis. Small cyst is seen at the upper midpole of the right kidney, measuring 1.1 x 1.5 cm, also seen previously. Impression: Small stable right renal cyst. The Ultrasound images were captured and stored. PROCEDURE INTERPRETED AT [facility] DEPARTMENT OF RADIOLOGY Final Report Signed by: Dr. Nataliya Leon
[2017-02-04] MEDS: ALBUTEROL/IPRATROPIUM 3 ML NEB RESP TX SCH ×2 (13:21→18:54)
[2017-02-04] MEDS ORDERED: PROPOFOL 200 MG/20 ML VIAL IV ONE (13:31)
[2017-02-04] MEDS ORDERED: ETOMIDATE 20 MG/10 ML VIAL IV ONE (13:32)
--- NOTE | 2017-02-04 13:33 | Event Note ---
Mr. Fields became unresponsive rather acutely today. I was called and came to the bedside the patient was hypotensive he had rather agonal respirations and his pressure was in the 60s. Quickly anesthesia was mobilized I made a failed attempted intubation anesthesia, intubated the patient we place an arterial line and an phenylephrine was initiated. Mechanical ventilation ensued and the patient has pending labs at this time he did not respond to Narcan initially but had some minimal response after trying to intubate. The patient has a very poor prognosis with his new Heart Association class IV heart failure and his new onset renal failure. The patient's son came to the bedside and I told him briefly about the very poor prognosis. I had made it very clear this morning with the patient about his CODE STATUS and he wished to be full code. We will ask pulmonary medicine to assist. He has a significantly distended abdomen and radiograms ordered. NG in place. Antibiotics are on board.
[2017-02-04] MEDS ORDERED: methylPREDNISolone SOD SUC 125 MG/2 ML VIAL IV ONE (13:34)
--- NOTE | 2017-02-04 13:36 | EKG Report ---
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
[2017-02-04] MEDS: AZITHROMYCIN 250 MG TABLET PO SCH (13:46)
[2017-02-04] MEDS: metOLazone 5 MG TABLET PO SCH (13:46)
[2017-02-04] MEDS: DOBUTamine 500 MG/250 ML PREMIX IV SCH ×2 (13:50→19:31)
[2017-02-04 14:04] LABS: Amorphous Crystals,Urine Few /HPF (Few); Apearance,Urine CLOUDY (Clear); Bilirubin,Urine Negative (Negative); Blood, Urine Small mg/dL (Negative); Glucose,Urine (UA) 50 mg/dL (Negative); Hyaline Casts,Urine 24 /LPF (0-3); Ketones,Urine Negative (Negative); Mucus,Urine Occasional /LPF (Occasional); Nitrite,Urine Negative (Negative); Protein,Urine >=500 MG/DL; RBC,Urine 2 /HPF (0-4); Squamous Epithelial Cell,Urine Occasional /HPF (0-10); Urine Specific Gravity 1.015 (1.001-1.035); WBC,Urine 2 /HPF (0-6)
[2017-02-04 14:05] LABS: Urine Color Yellow (Yellow)
[2017-02-04 14:13] LABS: ABG Base Excess -10.8 MMOL/L (-2.5-2.5); ABG HCO3 13.4 MMOL/L (20-26); ABG Oxygen Saturation 99.7 % (95-100); ABG PCO2 25.5 MM HG (35-48); ABG PO2 414.2 MM HG (80-95); ABG TCO2 14.2 MMOL/L (23-27)
[2017-02-04 14:22] LABS: Basophils % 0.3 % (0.0-0.8); Hematocrit 32.7 VOL% (42.0-52.0); Hemoglobin 10.7 GM/DL (14.0-18.0); Immature Granulocytes % 0.3 %; Immature Granulocytes Absolute 0.03 #; Lymphocytes # 0.7 10*3/uL (1.4-4.0); Lymphocytes % 5.8 % (21.2-54.2); Mean Corpuscular HGB Conc 32.7 GM/DL (32-36); Mean Corpuscular Hemoglobin 31 PG (27-34); Mean Corpuscular Volume 94.8 FL (87-102); Mean Platelet Volume 12.4 FL (9.6-12.0); Monocytes # 0.8 10*3/uL (0.11-0.8); Monocytes % 7.2 % (1.7-12.7); Neutrophils # 9.9 10*3/uL (1.4-7.4); Neutrophils % 86.4 % (38.7-73.9); Platelet Count 109 T/CUMM (130-400); Red Blood Count 3.45 MC/CUMM (3.8-5.5); Red Cell Distribution Width 16.4 % (9.3-17.3); White Blood Count 11.4 T/CUMM (4-12)
[2017-02-04] MEDS ORDERED: PROPOFOL 1,000 MG/100 ML BOTTLE IV SCH (14:30)
[2017-02-04 14:42] LABS: Magnesium 2.2 MG/DL (1.8-2.4); Osmolality,Calculated 284.7 MOS/KG (273-304)
--- NOTE | 2017-02-04 14:45 | XRay Report ---
XR chest 1V portable Indication: Intubated. Chest one view: Comparison earlier today shows endotracheal tube now present, terminating 2 cm cephalad the rosa. There is an NG tube extending into the left upper quadrant. Cardiomegaly, postoperative changes median sternotomy and significant pulmonary hypoinflation are all stable. No new infiltrates are shown. Impression: Adequate intubation. NG tube is described. PROCEDURE INTERPRETED AT [facility] DEPARTMENT OF RADIOLOGY Final Report Signed by: Omega Quigley M.D.
--- NOTE | 2017-02-04 14:46 | XRay Report ---
XR abdomen 2V Indication: Abdominal distention. Respiratory distress. Abdomen 3 views: NG tube is present, barely entering the stomach. Recommend advancing slightly. There is gaseous prominence without dilatation of the transverse colon as well as several loops small bowel in the lower abdomen. Scattered air-fluid levels on the decubitus image shown. No pneumoperitoneum. Little significant stool is identified in the remainder of the colon. L5-S1 fusion noted. Impression: Gaseous prominence of the transverse colon as well central small bowel. Differential gastroenteritis or severe ileus. Doubt SBO. Consider short-term follow-up. PROCEDURE INTERPRETED AT [facility] DEPARTMENT OF RADIOLOGY Final Report Signed by: Omega Quigley M.D.
[2017-02-04 14:49] LABS: Potassium 6.2 MMOL/L (3.5-5.1)
[2017-02-04] MEDS ORDERED: CALCIUM GLUCONATE 1,000 MG/10 ML VIAL IV ONE (14:59)
[2017-02-04] MEDS ORDERED: SODIUM CHLORIDE 0.9% 500 ML IV ONE (15:01)
--- NOTE | 2017-02-04 15:08 | Nephrology Consult Note ---
History of Present Illness Chief complaint: Acute on chronic renal failure, hyperkalemia History of present illness: Mr. Fields is a 61 year old male with a history of coronary artery disease congestive heart failure with an EF approximately 10% diabetes hypertension chronic kidney disease. The gentleman presented in referral from [facility] for progressive heart failure symptoms as well as abdominal distention. Today, the patient decompensated with further shortness of breath requiring intubation and severe hypotension. He is on 2 pressor medications at this time and urine output has been minimal. Nephrology is been consulted for acute on chronic renal failure. Patient serum creatinine is noted to be 4.4 and serum potassium noted to be 6.2 today. He is started on some IV fluids at this time. Family members at the bedside and updated the family. Home Medications Medication Instructions Recorded Confirmed Type RX: Aspirin [Ecotrin] 81 mg PO DAILY 09/29/14 09/02/16 History RX: Atorvastatin [Lipitor] 10 mg PO BEDTIME 09/29/14 09/02/16 History RX: HYDROcodone/ACETAMIN 10-325 1 tablet PO Q6H 09/29/14 09/02/16 History [[place] 10-325] RX: Insulin Lispro Prot/Lisp 75/25 10 units SUBCUT QPM 09/29/14 09/02/16 History [HumaLOG Mix 75/25] RX: Insulin Lispro Prot/Lisp 75/25 20 units SUBCUT QAM 09/29/14 09/02/16 History [HumaLOG Mix 75/25] RX: Multivitamin [Multivitamins] 1 each PO DAILY 09/29/14 09/02/16 History RX: amLODIPine [Norvasc] 10 mg PO DAILY 09/29/14 09/02/16 History RX: Losartan [Cozaar] 25 mg PO BID #60 tablet 10/02/14 09/02/16 Rx Furosemide Tab [Lasix Tab] 80 mg PO DAILY #30 tablet 09/04/16 Rx RX: Acetaminophen Tab [Tylenol Tab] 325 mg PO BID #14 tablet 09/04/16 Rx RX: Gabapentin Cap/Tab [Neurontin 100 mg PO TID #21 capsule 09/04/16 Rx Cap/Tab] RX: Pantoprazole Tab [Protonix Tab] 40 mg PO BID@0700,1900 #60 tablet 09/04/16 Rx RX: traMADol TAB [Ultram] 50 mg PO BID #14 tablet 09/04/16 Rx Allergies Allergy/AdvReac Type Severity Reaction Status Date / Time codeine Allergy RASH Verified 02/04/17 05:35 Penicillins Allergy ITCHING Verified 02/04/17 05:35 morphine AdvReac Hallucinati Verified 02/04/17 05:35 ng Medical,Surgical,& Family Hx - Medical History Cardio: History of: CHF (NYHA IV), CAD, Hypertension, [place], PVD, Cardiovascular Problems (CABG, [place]) Psychological: History of: Anxiety Disorders Endocrine: History of: Diabetes Mellitus (IDDM), Dyslipidemia Respiratory: History of: COPD Renal: History of: Renal Failure, Renal Problems (Renal insufficiency) Gastrointestinal: History of: GERD, GI Problems (Esophageal stricture) Musculoskeletal: History of: Back/Neck Problems (Back surgery X 3), Degenerative Disk Disease, Herniated Disk, Musculoskeletal Problems (Arthritis) No history of: Amputation - Surgical History Cardiac Surgeries: Sugical HX of: Cardiac Catheterization, Cardiac Surgery ( CABG in ) Thoracic Surgeries: Patient denies;: Lobectomy Neurologic Surgeries: Patient denies: Neurologic Surgery HEENT Surgeries: Surgical HX of: Eye Surgery Patient denies: Tonsilectomy & Adenoidectomy - Family History Family History: Reports;: Family Diabetes, Family Heart Disease, Family Hypertension, Family Stroke - Social History Smoking Status: Former smoker Frequency of Alcohol Use: Occasionally Type of Drug Use: None Review of Systems ROS unobtainable: due to endotracheal tube Exam - Vital Signs Vital signs: Period Temp Pulse Resp BP Sys/[place] Pulse Ox Last 24 Hr 97.2 F-99.6 F 57-102 14-35 71-148/37-98 91-100 - General Appearance General appearance: well-developed, well-nourished, intubated EENT: ATNC Neck: supple Respiratory: clear Cardiology: regular rate, regular rhythm Gastrointestinal: distended Integumentary: no rash Musculoskeletal: no cyanosis Results - Labs CBC & BMP: 02/04/17 14:15 02/04/17 14:15 Assessment and Plan (1) Congestive heart failure Status: Chronic Current Visit: Yes Qualifiers: Congestive heart failure type: combined Congestive heart failure chronicity : acute on chronic Qualified Code(s): I50.43 - Acute on chronic combined systolic (congestive) and diastolic (congestive) heart failure (2) Diabetes Status: Chronic Current Visit: No Qualifiers: Diabetes mellitus type: type 2 Chronic kidney disease stage: stage 4 ( severe) (3) Ischemic cardiomyopathy Status: Chronic Current Visit: No (4) Renal insufficiency Status: Chronic Assessment and plan: At this time continue with IV fluids that is half-normal saline with 1 amp of bicarb at 100 cc an hour. Have added an amp of calcium gluconate. Renal ultrasound noted. Current Visit: No (5) Cardiomyopathy due to hypertension Status: Chronic Current Visit: No
[2017-02-04] MEDS ORDERED: NOREPINEPHRINE 4 MG/4 ML VIAL IV ONE (15:13)
[2017-02-04] MEDS: NOREPINEPHRINE 16 MG in SODIUM CHLORIDE 0.9% 234 ML IV SCH (15:30)
--- NOTE | 2017-02-04 15:46 | Pulmonology Consult Note ---
Assessment and Plan (1) Diabetes Status: Chronic Assessment and plan: His glucoses will be monitored. Current Visit: No Qualifiers: Diabetes mellitus type: type 2 Chronic kidney disease stage: stage 4 ( severe) (2) Ischemic cardiomyopathy Status: Chronic Assessment and plan: The patient apparently has a very reduced ejection fraction is now on the ventilator. Current Visit: No (3) Renal insufficiency Status: Chronic Assessment and plan: The patient's creatinine is up to 4.4 and he will be monitored closely. Current Visit: No (4) Obstructive sleep apnea Status: Acute Assessment and plan: It is unclear how much treatment he has had for obstructive sleep apnea. Current Visit: No (5) Acute respiratory failure Status: Acute Assessment and plan: The patient had to be intubated today because he was quite lethargic and short of breath. He does have a severe cardiomyopathy. He basically has cardiogenic shock at the present time. He is getting pressors and some fluids. We will continue ventilatory support for now. Current Visit: Yes History of Present Illness Chief complaint: Ventilator management History of present illness: Mr. Fields is a 61 year old black male that has a long history of having coronary artery disease. He had previous bypass surgery in 2004. He was sent down from [facility] for shortness of breath and abdominal distention. Through the day he developed more shortness of breath and became obtunded and had to be intubated. He does have worsening renal insufficiency and basically has cardiogenic shock. His ejection fraction was approximately 10% and he is on dobutamine and multiple pressors now. He has very good oxygenation on the ventilator. His past problems have included his coronary artery disease along with hyperlipidemia, hypertension, peripheral vascular disease, type 2 diabetes , and is a former smoker. At present he is awake and responding but still has low blood pressure. His oxygenation is excellent. Home Medications Medication Instructions Recorded Confirmed Type Aspirin [Ecotrin] 81 mg PO DAILY 09/29/14 09/02/16 History Atorvastatin [Lipitor] 10 mg PO BEDTIME 09/29/14 09/02/16 History HYDROcodone/ACETAMIN 10-325 [[place] 1 tablet PO Q6H 09/29/14 09/02/16 History 10-325] Insulin Lispro Prot/Lisp 75/25 10 units SUBCUT QPM 09/29/14 09/02/16 History [HumaLOG Mix 75/25] Insulin Lispro Prot/Lisp 75/25 20 units SUBCUT QAM 09/29/14 09/02/16 History [HumaLOG Mix ] Multivitamin [Multivitamins] 1 each PO DAILY 09/29/14 09/02/16 History amLODIPine [Norvasc] 10 mg PO DAILY 09/29/14 09/02/16 History Losartan [Cozaar] 25 mg PO BID #60 tablet 10/02/14 09/02/16 Rx Acetaminophen Tab [Tylenol Tab] 325 mg PO BID #14 tablet 09/04/16 Rx Furosemide Tab [Lasix Tab] 80 mg PO DAILY #30 tablet 09/04/16 Rx Gabapentin Cap/Tab [Neurontin 100 mg PO TID #21 capsule 09/04/16 Rx Cap/Tab] Pantoprazole Tab [Protonix Tab] 40 mg PO BID@0700,1900 #60 tablet 09/04/16 Rx traMADol TAB [Ultram] 50 mg PO BID #14 tablet 09/04/16 Rx Allergies Allergy/AdvReac Type Severity Reaction Status Date / Time codeine Allergy RASH Verified 02/04/17 05:35 Penicillins Allergy ITCHING Verified 02/04/17 05:35 morphine AdvReac Hallucinati Verified 02/04/17 05:35 ng ROS unobtainable: due to endotracheal tube (Patient is unable to give a history at this point.) Exam (Pulmonay) H&P - Constitutional Vitals: Period Temp Pulse Resp BP Sys/Shook Pulse Ox Last 24 Hr 97.2 F-99.6 F 57-102 14-35 71-148/37-98 91-100 General appearance: no acute distress (Patient is comfortable on the ventilator at present.), over weight - Head Head exam: Present: normal inspection, normocephalic - Eye Eye exam: Present: EOMI. Absent: scleral icterus - ENT ENT exam: Present: other (ET tube is in good position.) - Neck Neck exam: Present: normal inspection, lymphadenopathy. Absent: thyromegaly - Respiratory Respiratory exam: Present: other (Patient has good breath sounds bilaterally without any definite wheezing now.). Absent: wheezes - Cardiovascular Cardiovascular exam: Present: gallop, regular rate and rhythm, systolic murmur - GI/Abdominal GI/Abdominal exam: Present: distended, hypoactive bowel sounds, tenderness, soft. Absent: organomegaly - Extremities Exam Extremities exam: Absent: calf tenderness, edema - Neurological Exam Neurological exam: Present: alert - Psychiatric Psychiatric exam: Present: normal mood, depressed Medical,Surgical,& Family Hx - Medical History Cardio: History of: CHF (NYHA IV), CAD, Hypertension, MS, PVD, Cardiovascular Problems (CABG, MS) Psychological: History of: Anxiety Disorders Endocrine: History of: Diabetes Mellitus (IDDM), Dyslipidemia Respiratory: History of: COPD Renal: History of: Renal Failure, Renal Problems (Renal insufficiency) Gastrointestinal: History of: GERD, GI Problems (Esophageal stricture) Musculoskeletal: History of: Back/Neck Problems (Back surgery X 3), Degenerative Disk Disease, Herniated Disk, Musculoskeletal Problems (Arthritis) No history of: Amputation - Surgical History Cardiac Surgeries: Sugical HX of: Cardiac Catheterization, Cardiac Surgery ( CABG in ) Thoracic Surgeries: Patient denies;: Lobectomy Neurologic Surgeries: Patient denies: Neurologic Surgery HEENT Surgeries: Surgical HX of: Eye Surgery Patient denies: Tonsilectomy & Adenoidectomy - Family History Family History: Reports;: Family Diabetes, Family Heart Disease, Family Hypertension, Family Stroke - Social History Smoking Status: Former smoker Frequency of Alcohol Use: Occasionally Type of Drug Use: None Results - Labs CBC & BMP: 02/04/17 14:15 02/04/17 14:15 - Diagnostic Findings Procedure: Chest x-ray: image reviewed by me, report reviewed by me (Chest x- ray shows marked cardiomegaly with no definite CHF)
[2017-02-04] MEDS ORDERED: CALCIUM GLUCONATE 1,000 MG in SODIUM CHLORIDE 0.9% 100 ML IV ONE (16:00)
[2017-02-04] MEDS: SODIUM BICARB INJ 50 MEQ in SODIUM CHLORIDE 0.45% 1,000 ML IV SCH (16:15)
[2017-02-04] MEDS: MIDAZOLAM 100 MG in SODIUM CHLORIDE 0.9% 80 ML IV SCH (16:17)
--- NOTE | 2017-02-04 16:17 | EKG Report ---
Stationary ECG Study 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
[2017-02-04 16:39] LABS: Band Neutrophils 11 % (0-10); Lymphocytes 4 % (20-55); Platelet Estimate Decreased; Segmented Neutrophils 82 % (50-85); Total Cells Counted 100
[2017-02-04 19:47] LABS: Calcium 7.8 MG/DL (8.5-10.1); Osmolality,Calculated 286.7 MOS/KG (273-304); Potassium 5.9 MMOL/L (3.5-5.1)
[2017-02-04] MEDS: FUROSEMIDE 40 MG/4 ML VIAL IV SCH (22:15)
[2017-02-04] MEDS: PANTOPRAZOLE 40 MG TABLET PO SCH (22:21)
[2017-02-04] MEDS: ATORVASTATIN 10 MG TABLET PO SCH (22:22)
[2017-02-05] MEDS: ALBUTEROL/IPRATROPIUM 3 ML NEB RESP TX SCH ×4 (00:20→19:16)
[2017-02-05] MEDS: SODIUM BICARB INJ 50 MEQ in SODIUM CHLORIDE 0.45% 1,000 ML IV SCH ×3 (02:15→15:18)
[2017-02-05] MEDS: DOBUTamine 500 MG/250 ML PREMIX IV SCH ×4 (03:06→20:33)
[2017-02-05 04:31] LABS: ABG Base Excess -4.2 MMOL/L (-2.5-2.5); ABG Oxygen Saturation 99.1 % (95-100); ABG PH 7.401 (7.35-7.45); ABG TCO2 18.1 MMOL/L (23-27)
[2017-02-05 04:38] LABS: Basophils % 0.2 % (0.0-0.8); Hematocrit 27.9 VOL% (42.0-52.0); Hemoglobin 9.8 GM/DL (14.0-18.0); Immature Granulocytes % 0.3 %; Immature Granulocytes Absolute 0.04 #; Lymphocytes # 0.3 10*3/uL (1.4-4.0); Lymphocytes % 2.4 % (21.2-54.2); Mean Corpuscular HGB Conc 35.1 GM/DL (32-36); Mean Corpuscular Hemoglobin 31 PG (27-34); Mean Corpuscular Volume 88.9 FL (87-102); Mean Platelet Volume 12.5 FL (9.6-12.0); Monocytes # 0.8 10*3/uL (0.11-0.8); Monocytes % 5.7 % (1.7-12.7); Neutrophils # 12.4 10*3/uL (1.4-7.4); Neutrophils % 91.4 % (38.7-73.9); Platelet Count 116 T/CUMM (130-400); Red Blood Count 3.14 MC/CUMM (3.8-5.5); Red Cell Distribution Width 15.9 % (9.3-17.3); White Blood Count 13.6 T/CUMM (4-12)
[2017-02-05 05:06] LABS: Calcium 7.4 MG/DL (8.5-10.1); Magnesium 1.8 MG/DL (1.8-2.4); Osmolality,Calculated 288.7 MOS/KG (273-304); Potassium 5.3 MMOL/L (3.5-5.1)
[2017-02-05 05:37] LABS: Band Neutrophils 6 % (0-10); Hypochromasia 1+; Lymphocytes 2 % (20-55); Nucleated Red Blood Cells 1 (0-5); Ovalocytes Slight; Platelet Estimate Decreased; Segmented Neutrophils 90 % (50-85); Total Cells Counted 100
--- NOTE | 2017-02-05 07:32 | Pulmonology Progress Note ---
Pulmonary - PN: Subj Interval history: Patient is a 61-year-old black man that has an ischemic cardiomyopathy and has an ejection fraction of about 10-15%. He came in with respiratory distress and heart failure and had to be intubated. He also has worsening chronic renal insufficiency. He has been treated for cardiogenic shock with pressors. He does have some urine output. His blood pressure has been stable. He is comfortable on the ventilator. His oxygenation has been very good. Exam (Progress Note) - Constitutional Vitals: Period Temp Pulse Resp BP Sys/Shook Pulse Ox Last 24 Hr 97.9 F-98.8 F 57-97 14-26 71-148/31-97 91-100 Exam: General appearance: no acute distress (Patient is comfortable on the ventilator at present. He does respond.), over weight - Head Head exam: Present: normal inspection, normocephalic - Eye Eye exam: Present: EOMI. Absent: scleral icterus - ENT ENT exam: Present: other (ET tube is in good position.) - Neck Neck exam: Present: normal inspection, lymphadenopathy. Absent: thyromegaly - Respiratory Respiratory exam: Present: He has good breath sounds bilaterally and is moving air reasonably well. He does not have any increased wheezing or rhonchi. - Cardiovascular Cardiovascular exam: Present: gallop, regular rate and rhythm, systolic murmur - GI/Abdominal GI/Abdominal exam: Present: distended, hypoactive bowel sounds, tenderness, soft. Absent: organomegaly - Extremities Exam Extremities exam: Absent: calf tenderness, edema - Neurological Exam Neurological exam: Present: alert, he will respond. - Psychiatric Psychiatric exam: Present: normal mood, depressed Results - Labs CBC & BMP: 02/05/17 04:13 02/05/17 04:13 Labs: His PO2 is 132 with a PCO2 of 32 and a pH of 7.4 Assessment and Plan (1) Diabetes Status: Chronic Assessment and plan: His glucoses will be monitored. Glucose is 173 this morning. Current Visit: No Qualifiers: Diabetes mellitus type: type 2 Chronic kidney disease stage: stage 4 ( severe) (2) Ischemic cardiomyopathy Status: Chronic Assessment and plan: The patient apparently has a very reduced ejection fraction is now on the ventilator. He is on pressors and has a fairly stable blood pressure. Current Visit: No (3) Renal insufficiency Status: Chronic Assessment and plan: The patient's creatinine is stable at 4.4. Current Visit: No (4) Obstructive sleep apnea Status: Acute Assessment and plan: It is unclear how much treatment he has had for obstructive sleep apnea. Current Visit: No (5) Acute respiratory failure Status: Acute Assessment and plan: The patient had to be intubated today because he was quite lethargic and short of breath. He does have a severe cardiomyopathy. He basically has cardiogenic shock at the present time. He is getting pressors and some fluids. We will continue ventilatory support for now. His oxygenation is stable and will start weaning trials. Current Visit: Yes
--- NOTE | 2017-02-05 08:12 | EKG Report ---
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
[2017-02-05] MEDS ORDERED: ISOSORBIDE MONONITRATE 30 MG TABLET PO SCH (09:00)
[2017-02-05] MEDS ORDERED: FUROSEMIDE 20 MG/2 ML VIAL ONE (09:19)
[2017-02-05] MEDS ORDERED: FUROSEMIDE 100 MG/10 ML VIAL ONE (09:20)
[2017-02-05] MEDS: FUROSEMIDE 40 MG/4 ML VIAL IV SCH ×2 (09:26→23:31)
[2017-02-05] MEDS: INSULIN REGULAR 100 UNIT/ML SUBCUT SCH ×4 (09:27→18:39)
[2017-02-05] MEDS: ENOXAPARIN 30 MG/0.3 ML SYRINGE SUBCUT SCH (09:29)
[2017-02-05] MEDS: metOLazone 5 MG TABLET PO SCH (09:29)
[2017-02-05] MEDS: GABAPENTIN 100 MG CAPSULE PO SCH ×3 (09:30→20:53)
[2017-02-05] MEDS: PANTOPRAZOLE 40 MG TABLET PO SCH ×2 (09:30→23:31)
[2017-02-05] MEDS: AZITHROMYCIN 250 MG TABLET PO SCH (09:30)
[2017-02-05] MEDS: ASPIRIN EC 81 MG TABLET PO SCH (09:30)
[2017-02-05] MEDS: PHENYLEPHRINE DRIP 40 MG/250 ML PREMIX IV SCH (13:13)
--- NOTE | 2017-02-05 14:39 | Cardiology Progress Note ---
Assessment and Plan (1) Abdominal bloating Status: Acute Assessment and plan: Repeat imaging Current Visit: No (2) History of coronary artery bypass graft Status: Chronic Assessment and plan: SEE PLAN OF CARE LISTED BELOW Current Visit: No (3) Hyperlipidemia Status: Chronic Assessment and plan: SEE PLAN OF CARE LISTED BELOW Current Visit: No Qualifiers: Hyperlipidemia type: other hyperlipidemia Qualified Code(s): E78.4 - Other hyperlipidemia (4) Ischemic cardiomyopathy Status: Chronic Assessment and plan: SEE PLAN OF CARE LISTED BELOW Current Visit: No (5) Renal insufficiency Status: Chronic Assessment and plan: This is acute on chronic nephrology is assisting Current Visit: No (6) Troponin level elevated Status: Acute Assessment and plan: SEE PLAN OF CARE LISTED BELOW Current Visit: No (7) Congestive heart failure Status: Chronic Assessment and plan: Prognosis is poor based on this alone [place] [employer] class IV not a candidate for defibrillator therapy Current Visit: Yes Qualifiers: Congestive heart failure type: combined Congestive heart failure chronicity : acute on chronic Qualified Code(s): I50.43 - Acute on chronic combined systolic (congestive) and diastolic (congestive) heart failure (8) Respiratory failure Status: Acute Current Visit: Yes Qualifiers: Chronicity: acute Respiratory failure complication: hypoxia and hypercapnia Qualified Code(s): J96.01 - Acute respiratory failure with hypoxia ; J96.02 - Acute respiratory failure with hypercapnia Cardiology - PN: Subj Interval history: I saw Mr. Fields early this morning in the ICU. I will say given the events of yesterday I thought he looked exceptionally good including specifically his chest film. He continues to be on pressors and he is sedated with Versed despite his renal insufficiency. Hopefully we can wean his pressors off. I feel he needs no significant change in his therapy today. We are trying to adjust his pressors get them off and find a respectable dose of dobutamine to help forward flow. I feel that his hypotension is likely only partially due to his heart failure some from other etiologies. His white count is elevated and certainly he could be infected he has been on antibiotics. He has somewhat distended loop of colon but no evidence of other pathology. The white count remains up but he did receive a dose of steroids yesterday during his hypotensive episode. Exam (Progress Note) - Constitutional Vitals: Period Temp Pulse Resp BP Sys/Shook Pulse Ox Last 24 Hr 97.6 F-99.2 F 80-102 14-30 83-137/31-53 95-100 General appearance: normal weight - Head Head exam: Present: normal inspection, other (Intubated) - Eye Eye exam: Present: other (Mild exophthalmos) - Respiratory Respiratory exam: Present: clear to auscultation bilaterally (Clear on vent with only upper airway noise) - Cardiovascular Cardiovascular exam: Present: irregular rhythm (PMI is laterally displaced tones are quiet) - GI/Abdominal GI/Abdominal exam: Present: normal bowel sounds - Extremities Exam Extremities exam: Present: edema - Back Exam Back exam: Present: normal inspection - Neurological Exam Neurological exam: Present: other (Sedated) - Psychiatric Psychiatric exam: Present: other (Sedated) - Skin Skin exam: Present: normal color, warm, dry Result/EKG - Labs CBC & BMP: 02/05/17 04:13 02/05/17 04:13 Labs: Laboratory Results - last 24 hr 02/04/17 02/04/17 02/04/17 14:15 14:15 14:15 WBC RBC Hgb Hct MCV MCH MCHC RDW Plt Count MPV Neut % (Auto) Lymph % (Auto) [place] % (Auto) Eos % (Auto) Baso % (Auto) Neut # (Auto) Lymph # (Auto) [place] # (Auto) Eos # (Auto) Baso # (Auto) Total Counted 100 Immature Gran % Nucleated RBC % Immature Gran # Segmented Neutrophils 82 Band Neutrophils 11 H Lymphocytes 4 L Monocytes 3 Nucleated RBCs Nucleated RBCs # Platelet Estimate Decreased Immature Plt Fraction Hypochromasia Ovalocytes Morphology Comment ABG pH ABG pCO2 ABG pO2 ABG HCO3 ABG Total CO2 ABG O2 Saturation ABG Base Excess Sodium 131 L Potassium 6.2 H* Chloride 98 Carbon Dioxide 16 L Anion Gap 23.2 H BUN 70 H Creatinine 4.40 H GFR Calculation 19 BUN/Creatinine Ratio 15.00 Glucose 139 H POC Glucose Calculated Osmolality 284.7 Lactic Acid Calcium 8.0 L Magnesium 2.2 Ammonia 146 H Troponin I 0.571 H 02/04/17 02/04/17 02/04/17 16:42 17:07 17:08 WBC RBC Hgb Hct MCV MCH MCHC RDW Plt Count MPV Neut % (Auto) Lymph % (Auto) [place] % (Auto) Eos % (Auto) Baso % (Auto) Neut # (Auto) Lymph # (Auto) [place] # (Auto) Eos # (Auto) Baso # (Auto) Total Counted Immature Gran % Nucleated RBC % Immature Gran # Segmented Neutrophils Band Neutrophils Lymphocytes Monocytes Nucleated RBCs Nucleated RBCs # Platelet Estimate Immature Plt Fraction Hypochromasia Ovalocytes Morphology Comment ABG pH ABG pCO2 ABG pO2 ABG HCO3 ABG Total CO2 ABG O2 Saturation ABG Base Excess Sodium Potassium Chloride Carbon Dioxide Anion Gap BUN Creatinine GFR Calculation BUN/Creatinine Ratio Glucose POC Glucose 148 H Calculated Osmolality Lactic Acid 5.0 H Calcium Magnesium Ammonia Troponin I 0.591 H 02/04/17 02/04/17 02/05/17 18:55 22:04 04:12 WBC RBC Hgb Hct MCV MCH MCHC RDW Plt Count MPV Neut % (Auto) Lymph % (Auto) [place] % (Auto) Eos % (Auto) Baso % (Auto) Neut # (Auto) Lymph # (Auto) [place] # (Auto) Eos # (Auto) Baso # (Auto) Total Counted Immature Gran % Nucleated RBC % Immature Gran # Segmented Neutrophils Band Neutrophils Lymphocytes Monocytes Nucleated RBCs Nucleated RBCs # Platelet Estimate Immature Plt Fraction Hypochromasia Ovalocytes Morphology Comment ABG pH 7.401 ABG pCO2 32.0 L ABG pO2 132.0 H ABG HCO3 21.0 ABG Total CO2 18.1 L ABG O2 Saturation 99.1 ABG Base Excess -4.2 L Sodium 131 L Potassium 5.9 H Chloride 97 L Carbon Dioxide 19 L Anion Gap 20.9 H BUN 73 H Creatinine 4.60 H GFR Calculation 18 BUN/Creatinine Ratio 15.00 Glucose 146 H POC Glucose 172 H Calculated Osmolality 286.7 Lactic Acid Calcium 7.8 L Magnesium Ammonia Troponin I 02/05/17 02/05/17 02/05/17 04:13 04:13 07:42 WBC 13.6 H RBC 3.14 L Hgb 9.8 L Hct 27.9 L MCV 88.9 MCH 31 MCHC 35.1 RDW 15.9 Plt Count 116 L MPV 12.5 H Neut % (Auto) 91.4 H Lymph % (Auto) 2.4 L [place] % (Auto) 5.7 Eos % (Auto) 0.0 Baso % (Auto) 0.2 Neut # (Auto) 12.4 H Lymph # (Auto) 0.3 L [place] # (Auto) 0.8 Eos # (Auto) 0.0 Baso # (Auto) 0.0 Total Counted 100 Immature Gran % 0.3 Nucleated RBC % 0.0 Immature Gran # 0.04 Segmented Neutrophils 90 H Band Neutrophils 6 Lymphocytes 2 L Monocytes 2 Nucleated RBCs 1 Nucleated RBCs # 0.00 Platelet Estimate Decreased Immature Plt Fraction 0.0 Hypochromasia 1+ Ovalocytes Slight Morphology Comment ABG pH ABG pCO2 ABG pO2 ABG HCO3 ABG Total CO2 ABG O2 Saturation ABG Base Excess Sodium 131 L Potassium 5.3 H Chloride 97 L Carbon Dioxide 20 L Anion Gap 19.3 H BUN 76 H Creatinine 4.40 H GFR Calculation 19 BUN/Creatinine Ratio 17.00 Glucose 173 H POC Glucose 199 H Calculated Osmolality 288.7 Lactic Acid Calcium 7.4 L Magnesium 1.8 Ammonia Troponin I 02/05/17 11:25 WBC RBC Hgb Hct MCV MCH MCHC RDW Plt Count MPV Neut % (Auto) Lymph % (Auto) [place] % (Auto) Eos % (Auto) Baso % (Auto) Neut # (Auto) Lymph # (Auto) [place] # (Auto) Eos # (Auto) Baso # (Auto) Total Counted Immature Gran % Nucleated RBC % Immature Gran # Segmented Neutrophils Band Neutrophils Lymphocytes Monocytes Nucleated RBCs Nucleated RBCs # Platelet Estimate Immature Plt Fraction Hypochromasia Ovalocytes Morphology Comment ABG pH ABG pCO2 ABG pO2 ABG HCO3 ABG Total CO2 ABG O2 Saturation ABG Base Excess Sodium Potassium Chloride Carbon Dioxide Anion Gap BUN Creatinine GFR Calculation BUN/Creatinine Ratio Glucose POC Glucose 190 H Calculated Osmolality Lactic Acid Calcium Magnesium Ammonia Troponin I
--- NOTE | 2017-02-05 15:03 | EKG Report ---
Stationary ECG Study 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
[2017-02-05] MEDS: LEVOFLOXACIN INJ 250 MG in PREMIX 1 EACH IV SCH (15:23)
[2017-02-05] MEDS: MIDAZOLAM 100 MG in SODIUM CHLORIDE 0.9% 80 ML IV SCH (17:57)
[2017-02-05] MEDS: NOREPINEPHRINE 16 MG in SODIUM CHLORIDE 0.9% 234 ML IV SCH (19:46)
--- NOTE | 2017-02-05 19:46 | Nephrology Progress Note ---
Nephrology - PN: Subj Interval history: The patient remains ventilated. Serum creatinine is 4.4 which is slightly better than yesterday. At this time continuing with medical management. BMP in a.m. Exam (PN)-Nephrology - Vital Signs Vital signs: Period Temp Pulse Resp BP Sys/Shook Pulse Ox Last 24 Hr 97.6 F-99.2 F 84-120 12-30 88-137/31-53 95-100 - General Appearance General appearance: well-developed, intubated EENT: ATNC Neck: supple Respiratory: clear Cardiology: regular rate, regular rhythm Gastrointestinal: normoactive bowel sounds Musculoskeletal: no deformities, no erythema - Lab 02/05/17 04:13 02/05/17 04:13 Most recent lab results ABG pH 7.401 (7.35-7.45) 02/05/17 04:12 ABG pCO2 32.0 MM HG (35-48) L 02/05/17 04:12 ABG pO2 132.0 MM HG (80-95) H 02/05/17 04:12 ABG HCO3 21.0 MMOL/L (20-26) 02/05/17 04:12 ABG O2 Saturation 99.1 % (95-100) 02/05/17 04:12 Calcium 7.4 MG/DL (8.5-10.1) L 02/05/17 04:13 Magnesium 1.8 MG/DL (1.8-2.4) 02/05/17 04:13 Assessment and Plan (1) Congestive heart failure Status: Chronic Current Visit: Yes Qualifiers: Congestive heart failure type: combined Congestive heart failure chronicity : acute on chronic Qualified Code(s): I50.43 - Acute on chronic combined systolic (congestive) and diastolic (congestive) heart failure (2) Diabetes Status: Chronic Current Visit: No Qualifiers: Diabetes mellitus type: type 2 Chronic kidney disease stage: stage 4 ( severe) (3) Ischemic cardiomyopathy Status: Chronic Current Visit: No (4) Renal insufficiency Status: Chronic Assessment and plan: Continue with IV fluids that is half-normal saline with 1 amp of bicarb at 100 cc an hour. Have added an amp of calcium gluconate. Renal ultrasound noted. Current Visit: No (5) Cardiomyopathy due to hypertension Status: Chronic Current Visit: No
[2017-02-05] MEDS: ATORVASTATIN 10 MG TABLET PO SCH (23:31)
[2017-02-06] MEDS: SODIUM BICARB INJ 50 MEQ in SODIUM CHLORIDE 0.45% 1,000 ML IV SCH ×3 (00:31→22:55)
[2017-02-06] MEDS: DOBUTamine 500 MG/250 ML PREMIX IV SCH ×3 (00:31→13:46)
[2017-02-06] MEDS: INSULIN REGULAR 100 UNIT/ML SUBCUT SCH ×4 (00:51→18:10)
[2017-02-06] MEDS: ALBUTEROL/IPRATROPIUM 3 ML NEB RESP TX SCH ×4 (01:18→19:55)
[2017-02-06 02:59] LABS: ABG Base Excess -1.5 MMOL/L (-2.5-2.5); ABG HCO3 21.7 MMOL/L (20-26); ABG Oxygen Saturation 97.1 % (95-100); ABG PH 7.462 (7.35-7.45); ABG TCO2 22.6 MMOL/L (23-27)
[2017-02-06 03:08] LABS: Basophils % 0.2 % (0.0-0.8); Hematocrit 26.4 VOL% (42.0-52.0); Hemoglobin 9.4 GM/DL (14.0-18.0); Immature Granulocytes % 13.5 %; Immature Granulocytes Absolute 2.16 #; Lymphocytes # 0.6 10*3/uL (1.4-4.0); Lymphocytes % 3.4 % (21.2-54.2); Mean Corpuscular HGB Conc 35.6 GM/DL (32-36); Mean Corpuscular Hemoglobin 31 PG (27-34); Mean Platelet Volume 12.3 FL (9.6-12.0); Monocytes # 1.3 10*3/uL (0.11-0.8); Monocytes % 8.1 % (1.7-12.7); Neutrophils % 74.8 % (38.7-73.9); Platelet Count 121 T/CUMM (130-400); Red Blood Count 3.07 MC/CUMM (3.8-5.5); Red Cell Distribution Width 15.4 % (9.3-17.3)
[2017-02-06 03:33] LABS: Magnesium 1.6 MG/DL (1.8-2.4); Osmolality,Calculated 288.8 MOS/KG (273-304); Potassium 4.7 MMOL/L (3.5-5.1)
[2017-02-06 03:45] LABS: Band Neutrophils 7 % (0-10); Lymphocytes 4 % (20-55); Segmented Neutrophils 81 % (50-85)
[2017-02-06 03:47] LABS: Burr Cells 1+
[2017-02-06 03:48] LABS: Polychromasia Few; Target Cells Few
[2017-02-06 03:49] LABS: Total Cells Counted 100
[2017-02-06 03:50] LABS: Platelet Estimate Adequate
--- NOTE | 2017-02-06 07:02 | EKG Report ---
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
--- NOTE | 2017-02-06 07:14 | Pulmonology Progress Note ---
Pulmonary - PN: Subj Interval history: This 61-year-old black male came in with congestive heart failure. He has very severe cardiomyopathy with ejection fraction in the 10-15% range. He is on the ventilator and respiratory failure. He is tolerating some CPAP trials and we will progress with those but I do not think he is ready for extubation yet. Exam (Progress Note) - Constitutional Vitals: Period Temp Pulse Resp BP Sys/Shook Pulse Ox Last 24 Hr 97.6 F-98.1 F 93-120 12-30 88-137/31-48 95-100 Exam: Patient is responsive, does nod to questions. Vital signs normal. Pupils react to light. Orotracheal tube in place. Neck is supple. Chest reveals some rales in the bases. Heart normal rate and rhythm PMI displaced to the left. Abdomen soft nontender no masses. Extremities she has bilateral leg edema worse on the right side with an ulceration on the inner aspect of his right ankle. Results - Labs CBC & BMP: 02/06/17 02:45 02/06/17 02:45 Lab Results: I have reviewed the past 24 hour labs - Diagnostic Findings Procedure: Chest x-ray: image reviewed by me (He does have some interstitial edema. ET tube good position. Cardiomegaly noted.) Assessment and Plan (1) Systolic CHF, acute on chronic Status: Resolved Assessment and plan: Patient getting diuretics. Defer to cardiology on the other measures. Has ejection fraction in the 10-15% range. This is on the basis of ischemic heart disease. Current Visit: No (2) Acute on chronic renal failure Status: Acute Assessment and plan: Creatinine is 4.5. Makes it difficult to diurese. Nephrology following. Current Visit: Yes (3) Acute respiratory failure Status: Acute Assessment and plan: Patient is doing some CPAP trials. Do not think he is ready for extubation as yet Current Visit: Yes
--- NOTE | 2017-02-06 07:53 | XRay Report ---
History is ventilator management Comparison 02/04/2017 The cardiac silhouette is enlarged with a mild lobular configuration ET tube tip remains at T4. NG tube traverses the chest The lungs are mildly under aerated There is question of slight increasing diffuse hazy and reticular pulmonary opacities without more focal consolidation Impression: 1. Cardiomegaly versus pericardial effusion 2. Question of slight pulmonary edema PROCEDURE INTERPRETED AT [facility] DEPARTMENT OF RADIOLOGY Final Report Signed by: Dr. Prachi Leon
[2017-02-06] MEDS: ENOXAPARIN 30 MG/0.3 ML SYRINGE SUBCUT SCH (08:45)
[2017-02-06] MEDS: AZITHROMYCIN 250 MG TABLET PO SCH (08:46)
[2017-02-06] MEDS: PANTOPRAZOLE 40 MG TABLET PO SCH ×2 (08:46→20:50)
[2017-02-06] MEDS: GABAPENTIN 100 MG CAPSULE PO SCH ×3 (08:46→20:50)
[2017-02-06] MEDS: metOLazone 5 MG TABLET PO SCH (08:46)
[2017-02-06] MEDS: ASPIRIN EC 81 MG TABLET PO SCH (08:46)
[2017-02-06] MEDS: FUROSEMIDE 40 MG/4 ML VIAL IV SCH ×2 (08:47→20:50)
--- NOTE | 2017-02-06 09:38 | Cardiology Progress Note ---
Mehrdad Cline Lesley, JOANNA, am scribing for, and in the presence of, EstefaniCarltonDO 09:35. Assessment and Plan - Time spent with patient Time spent with patient: Greater than 30 minutes (Record review, assessment, and documentation) (1) Lower extremity edema Status: Acute Current Visit: Yes (2) Abdominal bloating Status: Acute Current Visit: No (3) History of coronary artery bypass graft Status: Chronic Current Visit: No (4) Hyperlipidemia Status: Chronic Current Visit: No Qualifiers: Hyperlipidemia type: other hyperlipidemia Qualified Code(s): E78.4 - Other hyperlipidemia (5) Ischemic cardiomyopathy Status: Chronic Current Visit: No (6) Renal insufficiency Status: Chronic Current Visit: No (7) Troponin level elevated Status: Acute Current Visit: No (8) Congestive heart failure Status: Chronic Current Visit: Yes Qualifiers: Congestive heart failure type: combined Congestive heart failure chronicity : acute on chronic Qualified Code(s): I50.43 - Acute on chronic combined systolic (congestive) and diastolic (congestive) heart failure Cardiology - PN: Subj Interval history: PRODUCT DEVELOPMENT COORDINATOR: Dr. Campa Patient seen in ICU today, remains intubated. He has been weaned off vasopressors. He continues to be on a sodium bicarb drip as well as dobutamine at 20 mcg/min. Discussed with nursing to attempt to wean as able. Vital signs have remained stable this morning 110/43, rate in the 90s. Labs reviewed today , WBCs 16, hemoglobin and hematocrit 9 and 26. Creatinine is 4.5, and has consistently remain in this range. The patient does have a Carvalho catheter and continues to make urine. Nephrology is consulted. The patient is off phenylephrine and norepinephrine. He is on a high rate of dobutamine I will try to wean this today. The patient's chest x-ray has some patchy infiltrates a very well may be fluid he is markedly positive on fluid and has decreasing urinary output. His weight also is up significantly. The patient is more alert today he answers close ended questions appropriately and he denies any chest pain. The patient has not had a bowel movement since he has been here. His abdomen is soft he denies pain with palpation he has bowel sounds. They are slightly diminished. The assistance of Dr. Vergara and Dr. Esparza is greatly appreciated. Hopefully we can decrease his fluids and his urine output will hopefully improve now that he is off pressors. The etiology of his hypotension remains unclear. His cardiomyopathy certainly contributed but due to the precipitous hypotension abruptly I feel there is an underlying process yet to be delineated. Certainly may have been a septic picture but there is no identifiable source. He continues to have NG output but has a very benign abdomen. Exam (Progress Note) - Constitutional Vitals: Period Temp Pulse Resp BP Sys/Shook Pulse Ox Last 24 Hr 97.6 F-98.1 F 93-120 12-30 88-137/31-48 95-100 Exam: General: [Intubated, in bed with 2 point restraint] [Appears comfortable.] HEENT: [PERRL, normocephalic, atraumatic]. [Mucous membranes moist.] [No jaundice noted.] [Conjunctiva moist and clear, sclerae anicteric.] Neck: [No JVD/HJR, no thyromegaly or lymphadenopathy noted.]] Cardiac: [Regular rate and rhythm.] [No murmur rub or gallop.] [] Lungs: [Essentially clear to auscultation with rales noted to bilateral bases, orotracheal tube in place] Abdomen: [Soft, bowel sounds diminished but present. no peritoneal signs.] [ Abdomen distended, NG tube in place.] [No abdominal bruit or thrill noted.] [ No masses noted.] Musculoskeletal: [Dressing intact to medial lower leg.] [Decreased range of motion is noted to all extremities, will move bilateral hands to simple commands.] Extremities: [No clubbing, cyanosis noted.] [Trace edema noted to bilateral lower extremities.] [Upper extremity pulses 2+.] [Lower extremity pulses 2+.] [Capillary refill less than 3 seconds.] Skin: [No unusual lesions or rashes.] [Skin breakdown noted to medial right lower leg, dressing intact] Neuro: Awake, intubated, follows simple commands] [Moves all extremities well without hemiparesis or paralysis.] [No essential tremor is appreciated.] Result/EKG - Labs CBC & BMP: 02/06/17 02:45 02/06/17 02:45 Lab Results: I have reviewed the past 24 hour labs Labs: Laboratory Results - last 24 hr 02/05/17 02/05/17 02/05/17 07:42 11:25 18:11 WBC RBC Hgb Hct MCV MCH MCHC RDW Plt Count MPV Neut % (Auto) Lymph % (Auto) Floyd % (Auto) Eos % (Auto) Baso % (Auto) Neut # (Auto) Lymph # (Auto) Floyd # (Auto) Eos # (Auto) Baso # (Auto) Total Counted Immature Gran % Nucleated RBC % Immature Gran # Segmented Neutrophils Band Neutrophils Lymphocytes Monocytes Nucleated RBCs # Platelet Estimate Immature Plt Fraction Polychromasia Target Cells Marleny Cells ABG pH ABG pCO2 ABG pO2 ABG HCO3 ABG Total CO2 ABG O2 Saturation ABG Base Excess Sodium Potassium Chloride Carbon Dioxide Anion Gap BUN Creatinine GFR Calculation BUN/Creatinine Ratio Glucose POC Glucose 199 H 190 H 201 H Calculated Osmolality Calcium Magnesium 02/06/17 02/06/17 02/06/17 00:49 02:45 02:45 WBC 16.0 H RBC 3.07 L Hgb 9.4 L Hct 26.4 L MCV 86.0 L MCH 31 MCHC 35.6 RDW 15.4 Plt Count 121 L MPV 12.3 H Neut % (Auto) 74.8 H Lymph % (Auto) 3.4 L Floyd % (Auto) 8.1 Eos % (Auto) 0.0 Baso % (Auto) 0.2 Neut # (Auto) 12.0 H Lymph # (Auto) 0.6 L Floyd # (Auto) 1.3 H Eos # (Auto) 0.0 Baso # (Auto) 0.0 Total Counted 100 Immature Gran % 13.5 Nucleated RBC % 0.0 Immature Gran # 2.16 Segmented Neutrophils 81 Band Neutrophils 7 Lymphocytes 4 L Monocytes 8 Nucleated RBCs # 0.00 Platelet Estimate Adequate Immature Plt Fraction 0.0 Polychromasia Few Target Cells Few [place] Cells 1+ ABG pH ABG pCO2 ABG pO2 ABG HCO3 ABG Total CO2 ABG O2 Saturation ABG Base Excess Sodium 130 L Potassium 4.7 Chloride 97 L Carbon Dioxide 25 Anion Gap 12.7 BUN 84 H Creatinine 4.50 H GFR Calculation 19 BUN/Creatinine Ratio 18.00 Glucose 160 H POC Glucose 175 H Calculated Osmolality 288.8 Calcium 7.0 L Magnesium 1.6 L 02/06/17 02/06/17 02:45 06:26 WBC RBC Hgb Hct MCV MCH MCHC RDW Plt Count MPV Neut % (Auto) Lymph % (Auto) Floyd % (Auto) Eos % (Auto) Baso % (Auto) Neut # (Auto) Lymph # (Auto) Floyd # (Auto) Eos # (Auto) Baso # (Auto) Total Counted Immature Gran % Nucleated RBC % Immature Gran # Segmented Neutrophils Band Neutrophils Lymphocytes Monocytes Nucleated RBCs # Platelet Estimate Immature Plt Fraction Polychromasia Target Cells Marleny Cells ABG pH 7.462 H ABG pCO2 31.0 L ABG pO2 93.0 ABG HCO3 21.7 ABG Total CO2 22.6 L ABG O2 Saturation 97.1 ABG Base Excess -1.5 Sodium Potassium Chloride Carbon Dioxide Anion Gap BUN Creatinine GFR Calculation BUN/Creatinine Ratio Glucose POC Glucose 147 H Calculated Osmolality Calcium Magnesium - EKG EKG results: interpreted by me, sinus rhythm (QTc is normal (levaquin and azithromycin)) IEstefani Shea, , personally performed the services described in this documentation, ascribed by Sheila Cronin NP in my presence, and it is both accurate and complete 938 .
[2017-02-06] MEDS ORDERED: BISACODYL 10 MG SUPP RECTAL ONE (10:00)
[2017-02-06] MEDS ORDERED: LORazepam 2 MG/1 ML VIAL IV ONE (10:17)
[2017-02-06] MEDS ORDERED: LORazepam 2 MG/1 ML VIAL ONE (10:18)
--- NOTE | 2017-02-06 10:28 | EKG Report ---
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
[2017-02-06] MEDS ORDERED: MAGNESIUM SULF RIDER 2 GM in PREMIX 1 EACH IV PRN (10:29)
[2017-02-06] MEDS ORDERED: AMIODARONE 450 MG/9 ML VIAL IV ONE (10:46)
[2017-02-06] MEDS ORDERED: NOREPINEPHRINE 4 MG/4 ML VIAL IV ONE (10:55)
[2017-02-06] MEDS ORDERED: AMIODARONE INJ 450 MG in DEXTROSE 5% 241 ML IV SCH (11:00)
[2017-02-06] MEDS ORDERED: AMIODARONE 150 MG/3 ML VIAL ONE (11:29)
[2017-02-06] MEDS ORDERED: AMIODARONE INJ 150 MG in DEXTROSE 5% 100 ML IV ONE (11:40)
[2017-02-06] MEDS: LEVOFLOXACIN INJ 250 MG in PREMIX 1 EACH IV SCH (14:04)
--- NOTE | 2017-02-06 14:34 | Nephrology Progress Note ---
Nephrology - PN: Subj Interval history: The patient remains ventilated. At this time continuing with medical management. Family is at the bedside and updated them regarding patient's renal status. Patient remains ventilated. Serum creatinine is 4.5. His urine output is picking up. He did have an episode of atrial fibrillation RVR this morning. Now on amiodarone. Exam (PN)-Nephrology - Vital Signs Vital signs: Period Temp Pulse Resp BP Sys/Shook Pulse Ox Last 24 Hr 97.6 F-98.1 F 90-157 12-20 78-146/35-97 89-100 - General Appearance General appearance: intubated Neck: supple Respiratory: clear Cardiology: rapid rhythm, irregular rhythm Gastrointestinal: normoactive bowel sounds Musculoskeletal: no clubbing - Lab 02/06/17 02:45 02/06/17 02:45 Most recent lab results ABG pH 7.462 (7.35-7.45) H 02/06/17 02:45 ABG pCO2 31.0 MM HG (35-48) L 02/06/17 02:45 ABG pO2 93.0 MM HG (80-95) 02/06/17 02:45 ABG HCO3 21.7 MMOL/L (20-26) 02/06/17 02:45 ABG O2 Saturation 97.1 % (95-100) 02/06/17 02:45 Calcium 7.0 MG/DL (8.5-10.1) L 02/06/17 02:45 Magnesium 1.6 MG/DL (1.8-2.4) L 02/06/17 02:45 Assessment and Plan (1) Congestive heart failure Status: Chronic Current Visit: Yes Qualifiers: Congestive heart failure type: combined Congestive heart failure chronicity : acute on chronic Qualified Code(s): I50.43 - Acute on chronic combined systolic (congestive) and diastolic (congestive) heart failure (2) Diabetes Status: Chronic Current Visit: No Qualifiers: Diabetes mellitus type: type 2 Chronic kidney disease stage: stage 4 ( severe) (3) Ischemic cardiomyopathy Status: Chronic Current Visit: No (4) Renal insufficiency Status: Chronic Assessment and plan: Renal function is about the same. Continue with IV fluids. Current Visit: No (5) Cardiomyopathy due to hypertension Status: Chronic Current Visit: No
[2017-02-06] MEDS: MIDAZOLAM 100 MG in SODIUM CHLORIDE 0.9% 80 ML IV SCH (15:08)
[2017-02-06] MEDS ORDERED: MIDAZOLAM 2 MG/2 ML VIAL ONE (16:01)
[2017-02-06] MEDS: AMIODARONE INJ 450 MG in DEXTROSE 5% 241 ML IV SCH ×2 (16:24→21:00)
[2017-02-06] MEDS: PHENYLEPHRINE DRIP 40 MG/250 ML PREMIX IV SCH ×2 (17:29→22:16)
[2017-02-06] MEDS: ATORVASTATIN 10 MG TABLET PO SCH (20:50)
[2017-02-07] MEDS: INSULIN REGULAR 100 UNIT/ML SUBCUT SCH ×4 (00:52→17:56)
[2017-02-07] MEDS: DOBUTamine 500 MG/250 ML PREMIX IV SCH ×2 (01:16→16:03)
[2017-02-07] MEDS: ALBUTEROL/IPRATROPIUM 3 ML NEB RESP TX SCH ×4 (02:37→20:31)
[2017-02-07 04:35] LABS: ABG Base Excess -1.9 MMOL/L (-2.5-2.5); ABG HCO3 22.8 MMOL/L (20-26); ABG Oxygen Saturation 98.5 % (95-100); ABG PCO2 29.1 MM HG (35-48); ABG PH 7.466 (7.35-7.45); ABG TCO2 19.2 MMOL/L (23-27)
[2017-02-07 04:48] LABS: Basophils % 0.2 % (0.0-0.8); Hematocrit 26.5 VOL% (42.0-52.0); Hemoglobin 9.4 GM/DL (14.0-18.0); Immature Granulocytes % 1.2 %; Immature Granulocytes Absolute 0.29 #; Lymphocytes # 0.9 10*3/uL (1.4-4.0); Lymphocytes % 3.7 % (21.2-54.2); Mean Corpuscular HGB Conc 35.5 GM/DL (32-36); Mean Corpuscular Hemoglobin 30 PG (27-34); Mean Corpuscular Volume 84.4 FL (87-102); Mean Platelet Volume 12.6 FL (9.6-12.0); Monocytes # 1.5 10*3/uL (0.11-0.8); Monocytes % 6.1 % (1.7-12.7); NRBC # 0.03 10*3/uL; Neutrophils # 21.3 10*3/uL (1.4-7.4); Neutrophils % 88.8 % (38.7-73.9); Platelet Count 121 T/CUMM (130-400); Red Blood Count 3.14 MC/CUMM (3.8-5.5); Red Cell Distribution Width 15.1 % (9.3-17.3); White Blood Count 23.9 T/CUMM (4-12)
[2017-02-07 05:38] LABS: Calcium 7.1 MG/DL (8.5-10.1); Magnesium 2.1 MG/DL (1.8-2.4); Osmolality,Calculated 288.9 MOS/KG (273-304); Potassium 4.9 MMOL/L (3.5-5.1)
[2017-02-07 06:16] LABS: Band Neutrophils 1 % (0-10); Eosinophils 1 % (0-10); Lymphocytes 5 % (20-55); Platelet Estimate Decreased; Segmented Neutrophils 86 % (50-85); Total Cells Counted 100
[2017-02-07 06:17] LABS: Anisocytosis 1+; Hypochromasia Slight; Macrocytosis 1+
--- NOTE | 2017-02-07 07:48 | XRay Report ---
Exam: XR chest 1V portable Date: 02/07/2017 4:00 AM Indication: Follow-up ventilator respiratory failure Comparison: None Technical: AP portable Findings: Cardiomegaly is present with previous sternotomy. Endotracheal tube is located as well as nasogastric tube in good position. Cardiac pad superimposed exam. Low volume left effusion without pneumothorax. Mild interstitial edema is decreasing compared to previous exam. External cardiac leads are present. No pneumothorax Impression: 1. Cardiomegaly 2. Stable position of life-support tubing with previous sternotomy 3. Tiny low volume effusions with improving aeration slightly with compared to previous exam with decreasing interstitial alveolar edema PROCEDURE INTERPRETED AT [facility] DEPARTMENT OF RADIOLOGY Final Report Signed by: Dr. Elpidio Singleton
[2017-02-07] MEDS ORDERED: SODIUM CHLORIDE 0.9% 1,000 ML IV ONE (07:50)
--- NOTE | 2017-02-07 07:50 | Pulmonology Progress Note ---
Pulmonary - PN: Subj Interval history: This 61-year-old black male came in with congestive heart failure. He has very severe cardiomyopathy with ejection fraction in the 10-15% range. He is on the ventilator and respiratory failure. He is tolerating some CPAP trials and we will progress with those but I do not think he is ready for extubation yet. 02/07/2017 patient has severe cardiomyopathy. He continues to have a low cardiac output and low urine output and worsening renal failure. Ejection fraction quite low. Cardiology is following. We will continue with CPAP trials but he is too unstable to consider extubation. Probably needs more hydration. Exam (Progress Note) - Constitutional Vitals: Period Temp Pulse Resp BP Sys/Shook Pulse Ox Last 24 Hr 97.2 F-98.1 F 79-157 12-20 71-146/29-47 89-100 Exam: Patient is responsive, does nod to questions. Vital signs normal. Pupils react to light. Orotracheal tube in place. Neck is supple. Chest reveals some rales in the bases. Heart normal rate and rhythm PMI displaced to the left. Abdomen soft nontender no masses. Extremities she has bilateral leg edema worse on the right side with an ulceration on the inner aspect of his right ankle. Little change from yesterday. Results - Labs CBC & BMP: 02/07/17 04:08 02/07/17 04:08 Lab Results: I have reviewed the past 24 hour labs - Diagnostic Findings Procedure: Chest x-ray: image reviewed by me (Cardiomegaly. Haziness over the left diaphragm. No cydney heart failure radiographically.) Assessment and Plan (1) Systolic CHF, acute on chronic Status: Resolved Assessment and plan: Patient getting diuretics. Defer to cardiology on the other measures. Has ejection fraction in the 10-15% range. This is on the basis of ischemic heart disease. 02/07/2017 I think he is on the dry side. We will give him another bolus of fluid. Systolic blood pressure is in the 70s. Current Visit: No (2) Acute on chronic renal failure Status: Acute Assessment and plan: Creatinine is 4.5. Makes it difficult to diurese. Nephrology following. 02/07/2017 creatinine up to 4.8. Current Visit: Yes (3) Acute respiratory failure Status: Acute Assessment and plan: Patient is doing some CPAP trials. Do not think he is ready for extubation as yet 01/18/2017 ABGs acceptable. Tolerating CPAP. Needs his blood pressure stabilized before we can consider extubation Current Visit: Yes
--- NOTE | 2017-02-07 07:52 | EKG Report ---
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
[2017-02-07] MEDS: PHENYLEPHRINE INJ 160 MG in SODIUM CHLORIDE 0.9% 234 ML IV SCH (08:43)
[2017-02-07] MEDS ORDERED: NOREPINEPHRINE 4 MG/4 ML VIAL IV ONE (08:46)
[2017-02-07] MEDS: NOREPINEPHRINE 16 MG in SODIUM CHLORIDE 0.9% 234 ML IV SCH ×2 (08:51→21:26)
--- NOTE | 2017-02-07 08:52 | Cardiology Progress Note ---
Assessment and Plan (1) Lower extremity edema Status: Acute Current Visit: Yes (2) Abdominal bloating Status: Acute Assessment and plan: Repeat imaging Current Visit: No (3) History of coronary artery bypass graft Status: Chronic Current Visit: No (4) Hyperlipidemia Status: Chronic Current Visit: No Qualifiers: Hyperlipidemia type: other hyperlipidemia Qualified Code(s): E78.4 - Other hyperlipidemia (5) Ischemic cardiomyopathy Status: Chronic Current Visit: No (6) Renal insufficiency Status: Chronic Assessment and plan: This is acute on chronic nephrology is assisting. See HPI Current Visit: No (7) Troponin level elevated Status: Chronic Current Visit: No (8) Congestive heart failure Status: Chronic Assessment and plan: Prognosis is poor based on this alone [place] [employer] class IV not a candidate for defibrillator therapy Current Visit: Yes Qualifiers: Congestive heart failure type: combined Congestive heart failure chronicity : acute on chronic Qualified Code(s): I50.43 - Acute on chronic combined systolic (congestive) and diastolic (congestive) heart failure Cardiology - PN: Subj Interval history: Mr. Fields has done poorly throughout the night. He has become basically anuric. His blood pressure has trended down. Yesterday he was cardioverted with 200 J synchronously to sinus rhythm but returned to atrial fibrillation last night. His blood pressure continues to be low. His urine output has dropped. I feel like the patient has underlying infection potentially he is developing multisystem organ failure. He has worsening renal failure. We have given dobutamine with very little response. This likely precipitated his atrial fibrillation. He has not responded to phenylephrine we will add norepinephrine. He responded this previously and his white count is elevated I have been suspicious that he has underlying infectious process from the admission he was on Levaquin. He is allergic to penicillins. I will add anaerobic coverage. His abdominal exam is distended but on admission he said that this is the way his abdomen is and has been. We tried to increase bowel movements yesterday and he has on a bowel management system and he made stool throughout the day. He has bowel sounds that are unchanged. His abdomen is talked but he has bowel sounds is making stool. His white count is escalating he has not had a fever this may very well be stress reaction. He did get steroids on admission. I had a long discussion with the patient's sister Ms. Rodrigo Montes his sister and identified ALYSSIA on her cell phone at to discuss his extremely poor prognosis. She told me that family was coming from out of town. I told her about the global prognosis from his cardiomyopathy even without his renal failure and possible underlying sepsis. She voiced understanding I told her that survival this hospitalization is unlikely that we will continue to press forward with the patient's request was to have full efforts. I discussed this with him before he was on the ventilator had a turn for the worse. Although he has heart failure I will increase his fluids again and add Levophed. Certainly Levophed and phenylephrine are working against his extremely low EF. They also are working against his renal failure. His chest x-ray shows cardiomegaly and mild effusions. Certainly does not look like the radiograph of florid left heart failure. Hopefully he can tolerate a little fluid challenge additionally as we tried previously. L of all consultants is appreciated. Exam (Progress Note) - Constitutional Vitals: Period Temp Pulse Resp BP Sys/Shook Pulse Ox Last 24 Hr 97.2 F-98.1 F 79-157 12-18 71-146/29-47 89-100 General appearance: normal weight - Head Head exam: Present: other (Intubated sedated) - Eye Pupils: Present: DEANA - Neck Neck exam: Present: normal inspection - Respiratory Respiratory exam: Present: clear to auscultation bilaterally (Upper airway ventilator noise) - Cardiovascular Cardiovascular exam: Present: irregular rhythm (Rates about 100 appropriate for his clinical setting) - GI/Abdominal GI/Abdominal exam: Present: distended (Normal bowel sounds), firm - Extremities Exam Extremities exam: Present: other (Some breakdown the right lower extremity.) - Neurological Exam Neurological exam: Present: other (Sedated) - Psychiatric Psychiatric exam: Present: other (Sedated) - Skin Skin exam: Present: normal color, warm Result/EKG - Labs CBC & BMP: 02/07/17 04:08 02/07/17 04:08 Labs: Laboratory Results - last 24 hr 02/06/17 02/06/17 02/07/17 11:15 16:56 00:25 WBC RBC Hgb Hct MCV MCH MCHC RDW Plt Count MPV Neut % (Auto) Lymph % (Auto) [place] % (Auto) Eos % (Auto) Baso % (Auto) Neut # (Auto) Lymph # (Auto) [place] # (Auto) Eos # (Auto) Baso # (Auto) Total Counted Immature Gran % Nucleated RBC % Immature Gran # Segmented Neutrophils Band Neutrophils Lymphocytes Monocytes Eosinophils Basophils Nucleated RBCs # Platelet Estimate Immature Plt Fraction Hypochromasia Anisocytosis Macrocytosis ABG pH ABG pCO2 ABG pO2 ABG HCO3 ABG Total CO2 ABG O2 Saturation ABG Base Excess Sodium Potassium Chloride Carbon Dioxide Anion Gap BUN Creatinine GFR Calculation BUN/Creatinine Ratio Glucose POC Glucose 152 H 155 H 174 H Calculated Osmolality Calcium Magnesium 02/07/17 02/07/17 02/07/17 04:08 04:08 04:08 WBC 23.9 H D RBC 3.14 L Hgb 9.4 L Hct 26.5 L MCV 84.4 L MCH 30 MCHC 35.5 RDW 15.1 Plt Count 121 L MPV 12.6 H Neut % (Auto) 88.8 H Lymph % (Auto) 3.7 L Baxter % (Auto) 6.1 Eos % (Auto) 0.0 Baso % (Auto) 0.2 Neut # (Auto) 21.3 H Lymph # (Auto) 0.9 L Baxter # (Auto) 1.5 H Eos # (Auto) 0.0 Baso # (Auto) 0.0 Total Counted 100 Immature Gran % 1.2 Nucleated RBC % 0.1 Immature Gran # 0.29 Segmented Neutrophils 86 H Band Neutrophils 1 Lymphocytes 5 L Monocytes 6 Eosinophils 1 Basophils 1.0 H Nucleated RBCs # 0.03 Platelet Estimate Decreased Immature Plt Fraction 0.0 Hypochromasia Slight Anisocytosis 1+ Macrocytosis 1+ ABG pH 7.466 H ABG pCO2 29.1 L ABG pO2 116.0 H ABG HCO3 22.8 ABG Total CO2 19.2 L ABG O2 Saturation 98.5 ABG Base Excess -1.9 Sodium 129 L Potassium 4.9 Chloride 93 L Carbon Dioxide 21 Anion Gap 19.9 H BUN 89 H Creatinine 4.80 H GFR Calculation 17 BUN/Creatinine Ratio 18.00 Glucose 172 H POC Glucose Calculated Osmolality 288.9 Calcium 7.1 L Magnesium 2.1 02/07/17 06:18 WBC RBC Hgb Hct MCV MCH MCHC RDW Plt Count MPV Neut % (Auto) Lymph % (Auto) [place] % (Auto) Eos % (Auto) Baso % (Auto) Neut # (Auto) Lymph # (Auto) [place] # (Auto) Eos # (Auto) Baso # (Auto) Total Counted Immature Gran % Nucleated RBC % Immature Gran # Segmented Neutrophils Band Neutrophils Lymphocytes Monocytes Eosinophils Basophils Nucleated RBCs # Platelet Estimate Immature Plt Fraction Hypochromasia Anisocytosis Macrocytosis ABG pH ABG pCO2 ABG pO2 ABG HCO3 ABG Total CO2 ABG O2 Saturation ABG Base Excess Sodium Potassium Chloride Carbon Dioxide Anion Gap BUN Creatinine GFR Calculation BUN/Creatinine Ratio Glucose POC Glucose 186 H Calculated Osmolality Calcium Magnesium
[2017-02-07] MEDS: ENOXAPARIN 30 MG/0.3 ML SYRINGE SUBCUT SCH (09:34)
[2017-02-07] MEDS: GABAPENTIN 100 MG CAPSULE PO SCH ×3 (09:34→21:28)
[2017-02-07] MEDS: CLINDAMYCIN INJ 300 MG in PREMIX 1 EACH IV SCH ×3 (09:34→20:40)
[2017-02-07] MEDS: ASPIRIN CHEW 81 MG TABLET PO SCH (09:34)
[2017-02-07] MEDS: PANTOPRAZOLE 40 MG TABLET PO SCH ×2 (09:34→21:28)
--- NOTE | 2017-02-07 09:57 | Nephrology Progress Note ---
Nephrology - PN: Subj Interval history: Mr. Fields is seen in follow-up of his acute renal failure due to his cardiomyopathy with very low cardiac output. He is back in atrial fib after being cardioverted yesterday and he is been hypotensive despite pressors with oligo anuria as would be expected. He remains on a ventilator. Chest x-ray demonstrates no pulmonary edema. His outlook is grim and do not think any attempt at dialysis would be tolerated or beneficial. Likelihood of recovery from this is essentially nil. He is receiving maximal care and not improving Exam (PN)-Nephrology - Vital Signs Vital signs: Period Temp Pulse Resp BP Sys/Shook Pulse Ox Last 24 Hr 97.2 F-98.1 F 79-157 12-20 71-146/29-47 89-100 - Lab 02/07/17 04:08 02/07/17 04:08 Most recent lab results ABG pH 7.466 (7.35-7.45) H 02/07/17 04:08 ABG pCO2 29.1 MM HG (35-48) L 02/07/17 04:08 ABG pO2 116.0 MM HG (80-95) H 02/07/17 04:08 ABG HCO3 22.8 MMOL/L (20-26) 02/07/17 04:08 ABG O2 Saturation 98.5 % (95-100) 02/07/17 04:08 Calcium 7.1 MG/DL (8.5-10.1) L 02/07/17 04:08 Magnesium 2.1 MG/DL (1.8-2.4) 02/07/17 04:08
--- NOTE | 2017-02-07 10:19 | XRay Report ---
Exam: XR abdomen 1V Date: 02/07/2017 8:56 AM Indication: Abdominal pain and distention Comparison: 02/04/2017 Technical: AP portable Findings: Stomach is slightly prominent. There some dilated loops of bowel present in the mid hypogastric region. Previous intrapedicular screws stabilizing bars and rods at L5-S1 bilaterally. Liver spleen and renal shadows are partially obscured. Phleboliths are present. ASVD is noted. No pneumoperitoneum. Impression: Abdominal ileus pattern suspected 2. Vascular calcinosis 3. Previous intrapedicular screws stabilizing bars and rods PROCEDURE INTERPRETED AT [facility] DEPARTMENT OF RADIOLOGY Final Report Signed by: Dr. Elpidio Singleton
[2017-02-07] MEDS: AMIODARONE INJ 450 MG in DEXTROSE 5% 241 ML IV SCH (12:52)
[2017-02-07] MEDS: SODIUM BICARB INJ 50 MEQ in SODIUM CHLORIDE 0.45% 1,000 ML IV SCH (13:20)
[2017-02-07] MEDS: LEVOFLOXACIN INJ 250 MG in PREMIX 1 EACH IV SCH (16:01)
[2017-02-07] MEDS: MIDAZOLAM 100 MG in SODIUM CHLORIDE 0.9% 80 ML IV SCH (16:22)
[2017-02-07] MEDS: SODIUM BICARB INJ 50 MEQ in SODIUM CHLORIDE 0.9% 1,000 ML IV SCH (17:57)
[2017-02-07] MEDS: ATORVASTATIN 10 MG TABLET PO SCH (21:28)
[2017-02-08] MEDS: ALBUTEROL/IPRATROPIUM 3 ML NEB RESP TX SCH ×4 (01:25→19:31)
[2017-02-08] MEDS: AMIODARONE INJ 450 MG in DEXTROSE 5% 241 ML IV SCH ×2 (02:31→03:08)
[2017-02-08] MEDS: CLINDAMYCIN INJ 300 MG in PREMIX 1 EACH IV SCH ×4 (02:33→21:15)
[2017-02-08] MEDS: SODIUM BICARB INJ 50 MEQ in SODIUM CHLORIDE 0.9% 1,000 ML IV SCH ×2 (03:07→14:25)
[2017-02-08 04:16] LABS: Basophils % 0.1 % (0.0-0.8); Hematocrit 26.5 VOL% (42.0-52.0); Hemoglobin 9.8 GM/DL (14.0-18.0); Immature Granulocytes % 3.3 %; Immature Granulocytes Absolute 0.96 #; Lymphocytes # 1.2 10*3/uL (1.4-4.0); Mean Corpuscular Hemoglobin 30 PG (27-34); Mean Corpuscular Volume 82.3 FL (87-102); Mean Platelet Volume 11.5 FL (9.6-12.0); Monocytes # 1.6 10*3/uL (0.11-0.8); Monocytes % 5.5 % (1.7-12.7); NRBC # 0.09 10*3/uL; Neutrophils # 25.2 10*3/uL (1.4-7.4); Neutrophils % 87.1 % (38.7-73.9); Platelet Count 130 T/CUMM (130-400); Red Blood Count 3.22 MC/CUMM (3.8-5.5); Red Cell Distribution Width 14.9 % (9.3-17.3); White Blood Count 28.9 T/CUMM (4-12)
[2017-02-08 04:45] LABS: Band Neutrophils 2 % (0-10); Lymphocytes 4 % (20-55); Segmented Neutrophils 86 % (50-85)
[2017-02-08 04:46] LABS: Burr Cells 1+; Platelet Estimate Normal
[2017-02-08 04:47] LABS: Hypochromasia Slight; Total Cells Counted 100
[2017-02-08 04:49] LABS: ABG Base Excess -2.5 MMOL/L (-2.5-2.5); ABG HCO3 22.3 MMOL/L (20-26); ABG Oxygen Saturation 98.3 % (95-100); ABG PCO2 28.3 MM HG (35-48); ABG PH 7.464 (7.35-7.45); ABG TCO2 18.5 MMOL/L (23-27)
[2017-02-08 04:56] LABS: Calcium 6.9 MG/DL (8.5-10.1); Osmolality,Calculated 289.1 MOS/KG (273-304); Potassium 4.8 MMOL/L (3.5-5.1)
[2017-02-08] MEDS: INSULIN REGULAR 100 UNIT/ML SUBCUT SCH ×4 (06:27→18:34)
[2017-02-08] MEDS: PHENYLEPHRINE INJ 160 MG in SODIUM CHLORIDE 0.9% 234 ML IV SCH (07:28)
--- NOTE | 2017-02-08 07:35 | Cardiology Progress Note ---
Assessment and Plan (1) Lower extremity edema Status: Acute Assessment and plan: The right lower extremity has changed significantly. Will ask Dr. Jeffers to see. Continue Levaquin and clindamycin. Due to the unilateral nature of this and now bullae formation is concerned this may be a deep-seated infection. Current Visit: Yes (2) Abdominal bloating Status: Acute Assessment and plan: Repeat imaging is most consistent with an ileus. The patient still has abdominal distention and bowel sounds they are present but diminished. He is making less stool apparently throughout the day yesterday. Current Visit: No (3) History of coronary artery bypass graft Status: Chronic Current Visit: No (4) Hyperlipidemia Status: Chronic Current Visit: No Qualifiers: Hyperlipidemia type: other hyperlipidemia Qualified Code(s): E78.4 - Other hyperlipidemia (5) Ischemic cardiomyopathy Status: Chronic Current Visit: No (6) Renal insufficiency Status: Chronic Assessment and plan: This is acute on chronic nephrology is assisting. See HPI. He continues with very little urine output. Current Visit: No (7) Congestive heart failure Status: Chronic Assessment and plan: Prognosis is poor based on this alone [employer] class IV not a candidate for defibrillator therapy Current Visit: Yes Qualifiers: Congestive heart failure type: combined Congestive heart failure chronicity : acute on chronic Qualified Code(s): I50.43 - Acute on chronic combined systolic (congestive) and diastolic (congestive) heart failure Cardiology - PN: Subj Interval history: The patient remains afebrile. He is alert this morning. His ileus seems to be slightly better by exam he still distended but he has bowel sounds. He has decreased his stool output. He is clear that his right lower extremity has progressed. I did not examine it yesterday had only a small eschar and lesion in the pretibial region that before but it appears to be edematous with bullae on it today that is new. It is draining clear liquid. He remains afebrile. His blood pressure response to levophed his white cell count continues to go up. The patient is awake. He has significant discomfort in his right lower extremity from the nurses were asked him specifically if he hurts he has no complaints. He follows commands. He made a scant amount of stool last night according to the nurses. I was hoping that his ileus would resolve before we can start tube feedings. His NG has not produced significant amount of secretions now and over 24 hours. We will ask dietary to see the tube feed recommendations will initiate some at this time and see if he can tolerate them. He may require parenteral nutrition. His prognosis remains extremely poor. Help of consultants is greatly appreciated. The patient remains in atrial fibrillation. Exam (Progress Note) - Constitutional Vitals: Period Temp Pulse Resp BP Sys/Shook Pulse Ox Last 24 Hr 97.1 F-98.4 F 100-127 14-26 70-138/23-54 94-100 Result/EKG - Labs CBC & BMP: 02/08/17 04:10 02/08/17 04:10 Labs: Laboratory Results - last 24 hr 02/07/17 02/07/17 02/08/17 11:05 17:25 00:47 WBC RBC Hgb Hct MCV MCH MCHC RDW Plt Count MPV Neut % (Auto) Lymph % (Auto) Pitkin % (Auto) Eos % (Auto) Baso % (Auto) Neut # (Auto) Lymph # (Auto) Pitkin # (Auto) Eos # (Auto) Baso # (Auto) Total Counted Immature Gran % Nucleated RBC % Immature Gran # Segmented Neutrophils Band Neutrophils Lymphocytes Monocytes Nucleated RBCs # Platelet Estimate Immature Plt Fraction Hypochromasia Marleny Cells ABG pH ABG pCO2 ABG pO2 ABG HCO3 ABG Total CO2 ABG O2 Saturation ABG Base Excess Sodium Potassium Chloride Carbon Dioxide Anion Gap BUN Creatinine GFR Calculation BUN/Creatinine Ratio Glucose POC Glucose 165 H 156 H 136 H Calculated Osmolality Calcium Magnesium 02/08/17 02/08/17 02/08/17 04:00 04:10 04:10 WBC 28.9 H RBC 3.22 L Hgb 9.8 L Hct 26.5 L MCV 82.3 L MCH 30 MCHC 37.0 H RDW 14.9 Plt Count 130 MPV 11.5 Neut % (Auto) 87.1 H Lymph % (Auto) 4.0 L Pitkin % (Auto) 5.5 Eos % (Auto) 0.0 Baso % (Auto) 0.1 Neut # (Auto) 25.2 H Lymph # (Auto) 1.2 L Pitkin # (Auto) 1.6 H Eos # (Auto) 0.0 Baso # (Auto) 0.0 Total Counted 100 Immature Gran % 3.3 Nucleated RBC % 0.3 Immature Gran # 0.96 Segmented Neutrophils 86 H Band Neutrophils 2 Lymphocytes 4 L Monocytes 8 Nucleated RBCs # 0.09 Platelet Estimate Normal Immature Plt Fraction 0.0 Hypochromasia Slight Marleny Cells 1+ ABG pH 7.464 H ABG pCO2 28.3 L ABG pO2 113.0 H ABG HCO3 22.3 ABG Total CO2 18.5 L ABG O2 Saturation 98.3 ABG Base Excess -2.5 Sodium 128 L Potassium 4.8 Chloride 94 L Carbon Dioxide 23 Anion Gap 15.8 H BUN 100 H Creatinine 5.50 H GFR Calculation 15 BUN/Creatinine Ratio 18.00 Glucose 138 H POC Glucose Calculated Osmolality 289.1 Calcium 6.9 L Magnesium 2.0
--- NOTE | 2017-02-08 08:39 | Pulmonology Progress Note ---
Pulmonary - PN: Subj Interval history: This 61-year-old black male came in with congestive heart failure. He has very severe cardiomyopathy with ejection fraction in the 10-15% range. He is on the ventilator and respiratory failure. He is tolerating some CPAP trials and we will progress with those but I do not think he is ready for extubation yet. 02/07/2017 patient has severe cardiomyopathy. He continues to have a low cardiac output and low urine output and worsening renal failure. Ejection fraction quite low. Cardiology is following. We will continue with CPAP trials but he is too unstable to consider extubation. Probably needs more hydration. 02/08/2017 patient has worsening renal function. Severe cardiomyopathy. Tolerating CPAP's, but had arrhythmia during one yesterday, so not ready for extubation yet. Exam (Progress Note) - Constitutional Vitals: Period Temp Pulse Resp BP Sys/Shook Pulse Ox Last 24 Hr 97.1 F-98.4 F 100-127 14-26 70-138/23-54 94-99 Exam: Patient is responsive, does nod to questions. Vital signs normal. Pupils react to light. Orotracheal tube in place. Neck is supple. Chest reveals some rales in the bases. Heart normal rate and rhythm PMI displaced to the left. Abdomen soft nontender no masses. Extremities she has bilateral leg edema worse on the right side with an ulceration on the inner aspect of his right ankle. Little change from yesterday. Results - Labs CBC & BMP: 02/08/17 04:10 02/08/17 04:10 Lab Results: I have reviewed the past 24 hour labs - Diagnostic Findings Procedure: Chest x-ray: image reviewed by me (Chest x-ray remains with) Assessment and Plan (1) Systolic CHF, acute on chronic Status: Resolved Assessment and plan: Patient getting diuretics. Defer to cardiology on the other measures. Has ejection fraction in the 10-15% range. This is on the basis of ischemic heart disease. 02/07/2017 I think he is on the dry side. We will give him another bolus of fluid. Systolic blood pressure is in the 70s. 02/08/2017 systolic blood pressure is a little bit better. Current Visit: No (2) Acute on chronic renal failure Status: Acute Assessment and plan: Creatinine is 4.5. Makes it difficult to diurese. Nephrology following. 02/07/2017 creatinine up to 4.8. 02/08/17 worsening renal failure. Creatinine 5.5. Current Visit: Yes (3) Acute respiratory failure Status: Acute Assessment and plan: Patient is doing some CPAP trials. Do not think he is ready for extubation as yet 02/07/2017 ABGs acceptable. Tolerating CPAP. Needs his blood pressure stabilized before we can consider extubation 02/08/2017 not ready for extubation yet. Tolerating CPAP but occasionally having arrhythmias and may have to be stopped. Current Visit: Yes
--- NOTE | 2017-02-08 08:45 | EKG Report ---
Stationary ECG Study [facility] Test Date: 02/08/2017 8:15:59 AM Pat Name: KEN MOTA Department: Room: 122 Gender: M Machine Stuffer Automatic: NELSY : 1955 Requested by: Nathalie Copeland Order Number: [id number] Blank MD: ITZEL MIRANDA Intervals [place] Rate: 116 P: 999 MT: 0 QRS: 74 QRSD: 109 T: 269 QT: 317 QTc: 386 Interpretive Statements ATRIAL FIBRILLATION WITH RAPID VENTRICULAR RESPONSE Electronically Signed On 02-09-17 11:49:58 CDT by ITZEL MIRANDA [email or web address]
[2017-02-08] MEDS: PANTOPRAZOLE 40 MG TABLET PO SCH ×2 (09:08→21:47)
[2017-02-08] MEDS: ENOXAPARIN 30 MG/0.3 ML SYRINGE SUBCUT SCH (09:08)
[2017-02-08] MEDS: ASPIRIN CHEW 81 MG TABLET PO SCH (09:08)
[2017-02-08] MEDS: GABAPENTIN 100 MG CAPSULE PO SCH ×3 (09:08→21:47)
[2017-02-08] MEDS: AMIODARONE 200 MG TABLET NG SCH ×2 (09:08→21:47)
--- NOTE | 2017-02-08 09:57 | XRay Report ---
Exam: XR chest 1V Date: 02/08/2017 7:36 AM Indication: Follow-up ventilator respiratory failure Comparison: 02/07/2017 Technical: AP Findings: Endotracheal tube nasogastric tube are in good position. Cardiomegaly is present. Cardiac pad superimposing exam and external cardiac leads. No pneumothorax with tiny low volume effusions and some mild distention of bowel in the upper abdomen. Sternotomy wires are present. Impression: 1. Cardiomegaly with low volume effusions and mild CHF and interstitial edema 2. Stable position of endotracheal tube and nasogastric tube PROCEDURE INTERPRETED AT [facility] DEPARTMENT OF RADIOLOGY Final Report Signed by: Dr. Elpidio Singleton
[2017-02-08] MEDS: DOBUTamine 500 MG/250 ML PREMIX IV SCH (10:01)
--- NOTE | 2017-02-08 10:09 | Nephrology Progress Note ---
Nephrology - PN: Subj Interval history: Mr. Fields is seen in follow-up of his renal failure. He remains critically ill with maximal support. Creatinine is up to 5.5 with a potassium of 4.8 vasopressors are slowly being weaned. He remains on a ventilator. He has developed blistering lesions on his right leg. The leg is warm evaluation is in progress for that. Overall he remains critically ill and is doing poorly. Meaningful recovery seems unlikely. Exam (PN)-Nephrology - Vital Signs Vital signs: Period Temp Pulse Resp BP Sys/Shook Pulse Ox Last 24 Hr 97.1 F-98.4 F 100-127 14-26 70-138/23-54 94-99 - Lab 02/08/17 04:10 02/08/17 04:10 Most recent lab results ABG pH 7.464 (7.35-7.45) H 02/08/17 04:00 ABG pCO2 28.3 MM HG (35-48) L 02/08/17 04:00 ABG pO2 113.0 MM HG (80-95) H 02/08/17 04:00 ABG HCO3 22.3 MMOL/L (20-26) 02/08/17 04:00 ABG O2 Saturation 98.3 % (95-100) 02/08/17 04:00 Calcium 6.9 MG/DL (8.5-10.1) L 02/08/17 04:10 Magnesium 2.0 MG/DL (1.8-2.4) 02/08/17 04:10
--- NOTE | 2017-02-08 10:19 | General Surgery Consult Note ---
Assessment and Plan (1) Lower extremity edema Status: Acute Assessment and plan: I believe this edema represents volume overload and do not see any evidence of a necrotizing soft tissue infection or abscess that needs operative intervention. I will reorder a duplex study of his right leg since this has worsened since admission and certainly could have a DVT is making this worse. If the ultrasound is negative I will continue to follow this clinically and try to elevate his legs as much as possible. Current Visit: Yes (2) Abdominal bloating Status: Acute Assessment and plan: We will obtain a CT scan of the abdomen and pelvis given rising leukocytosis and abdominal distention with ileus to rule out a catastrophic problem in the abdomen that is causing his leukocytosis. I will also check a lactic acid. With the amount of pressors that he is on it certainly could be a abdominal problem is causing his white blood cell count to rise in his possible septic picture with response to Levophed Current Visit: No History of Present Illness Chief complaint: Right lower extremity wounds with edema and ileus History of present illness: Mr. Fields is a 61 year old male admitted with heart failure which subsequently required intubation and diuresis and the patient has since developed renal dysfunction which is acutely worsening. He is on multiple pressor agents and his white blood cell count is rising and he was admitted with a small medial malleolus wound on his right leg but since then he has developed worsening edema of his right leg and blistering with weeping of fluid. I was called to see him because of his leukocytosis and concerns for his right leg and also his abdomen. I discussed his care over his hospital stay with the nurse April at the bedside. He did have a medial malleolus wound on admission his abdomen was distended on admission and told the nurse that this is like this all the time. However, collateral information from the family demonstrated that his abdomen and legs swell up when he went into heart failure and then got better intermittently when his heart failure was better controlled. He did have a duplex ultrasound of his bilateral lower extremities which showed no DVT on admission. He has never had any CT scans of his abdomen on this admission. Home Medications Medication Instructions Recorded Confirmed Type Aspirin [Ecotrin] 81 mg PO DAILY 09/29/14 02/06/17 History Atorvastatin [Lipitor] 10 mg PO BEDTIME 09/29/14 02/06/17 History HYDROcodone/ACETAMIN 10-325 [[place] 1 tablet PO Q6H 09/29/14 02/06/17 History 10-325] Insulin Lispro Prot/Lisp 75/25 10 units SUBCUT QPM 09/29/14 02/06/17 History [HumaLOG Mix 75/25] Insulin Lispro Prot/Lisp 75/25 25 units SUBCUT QAM 09/29/14 02/06/17 History [HumaLOG Mix 75/25] Multivitamin [Multivitamins] 1 each PO DAILY 09/29/14 02/06/17 History amLODIPine [Norvasc] 10 mg PO DAILY 09/29/14 02/06/17 History Losartan [Cozaar] 25 mg PO BID #60 tablet 10/02/14 02/06/17 Rx Acetaminophen Tab [Tylenol Tab] 325 mg PO BID #14 tablet 09/04/16 02/06/17 Rx Furosemide Tab [Lasix Tab] 80 mg PO DAILY #30 tablet 09/04/16 02/06/17 Rx Gabapentin Cap/Tab [Neurontin 100 mg PO TID #21 capsule 09/04/16 02/06/17 Rx Cap/Tab] Pantoprazole Tab [Protonix Tab] 40 mg PO BID@0700,1900 #60 tablet 09/04/1602/06 Rx traMADol TAB [Ultram] 50 mg PO BID #14 tablet 09/04/16 02/06/17 Rx Allergies Allergy/AdvReac Type Severity Reaction Status Date / Time codeine Allergy RASH Verified 02/04/17 05:35 Penicillins Allergy ITCHING Verified 02/04/17 05:35 morphine AdvReac Hallucinati Verified 02/04/17 05:35 ng Medical,Surgical,& Family Hx - Medical History Cardio: History of: CHF (NYHA IV), CAD, Hypertension, [place], PVD, Cardiovascular Problems (CABG, [place]) Psychological: History of: Anxiety Disorders Endocrine: History of: Diabetes Mellitus (IDDM), Dyslipidemia Respiratory: History of: COPD Renal: History of: Renal Failure, Renal Problems (Renal insufficiency) Gastrointestinal: History of: GERD, GI Problems (Esophageal stricture) Musculoskeletal: History of: Back/Neck Problems (Back surgery X 3), Degenerative Disk Disease, Herniated Disk, Musculoskeletal Problems (Arthritis) No history of: Amputation - Surgical History Cardiac Surgeries: Sugical HX of: Cardiac Catheterization, Cardiac Surgery ( CABG in ) Thoracic Surgeries: Patient denies;: Lobectomy Neurologic Surgeries: Patient denies: Neurologic Surgery HEENT Surgeries: Surgical HX of: Eye Surgery Patient denies: Tonsilectomy & Adenoidectomy - Family History Family History: Reports;: Family Diabetes, Family Heart Disease, Family Hypertension, Family Stroke - Social History Smoking Status: Former smoker Frequency of Alcohol Use: Occasionally Type of Drug Use: None - Constitutional Constitutional: Present: as per HPI - EENT Nose, mouth and throat: Present: as per HPI - Cardiovascular Cardiovascular: Present: as per HPI - Respiratory Respiratory: Present: as per HPI - Gastrointestinal Gastrointestinal: Present: as per HPI - Genitourinary Genitourinary: Present: as per HPI - Musculoskeletal Musculoskeletal: Present: as per HPI - Neurological Neurological: Present: as per HPI - Endocrine Endocrine: Present: as per HPI Hematologic/Lymphatic: Present: as per HPI Exam - Constitutional Vitals: Period Temp Pulse Resp BP Sys/Shook Pulse Ox Last 24 Hr 97.1 F-98.4 F 100-127 14-26 70-138/23-54 94-99 General appearance: no acute distress, over weight - Head Head exam: Present: normal inspection, normocephalic - Eye Eye exam: Present: EOMI. Absent: scleral icterus Pupils: Present: DEANA - ENT ENT exam: Present: normal exam Mouth exam: Present: normal external inspection, normal voice - Neck Neck exam: Present: normal inspection, trachea midline - Respiratory Respiratory exam: Present: decreased breath sounds. Absent: accessory muscle use, chest wall tenderness - Cardiovascular Cardiovascular exam: Present: RRR. Absent: tachycardia - GI/Abdominal GI/Abdominal exam: Present: distended, hypoactive bowel sounds, soft. Absent: tenderness, rebound - Extremities Exam Extremities exam: Present: other (Bilateral lower extremity edema. There is edema of the left leg to the level of the mid thigh but there are no open wounds or weeping. On the right leg, there is blistering with weeping and serous fluid underneath the epidermal superficial composition tile layer the leg. There is no erythema or crepitus. There is pitting edema on this leg as well.) - Back Exam Back exam: Present: normal inspection - Skin Skin exam: Present: normal color, warm Results - Labs CBC & BMP: 02/08/17 04:10 02/08/17 04:10
--- NOTE | 2017-02-08 11:24 | CT Report ---
Exam: CT abdomen pelvis wo con Date: 02/08/2017 1053AM Comparison: None Indication: Abdominal distention and ileus leukocytosis Total DLP: 1093.1 mGy*cm Technical: Oral contrast was present Images were obtained from the lung bases to the iliac crest continuation through the pelvis without intravenous contrast axial sagittal coronal imaging available for review. Dose reduction was performed with decreasing kv and mA and automated exposure Findings: Lung bases: Bilateral pleural effusions left greater than right. Cardiomegaly is present. Liver and Spleen: Unremarkable Gallbladder and Pancreas: Gallbladder is contracted. Pancreas is unremarkable. Adrenals: Unremarkable Kidneys: No obvious obstruction or stones present with some vascular plaque present. Stomach: Partially distended with oral contrast air-fluid and a nasogastric tube is present. Retroperitoneum: No enlarged lymph nodes. Aorta and IVC: Vascular plaque in aorta iliac vessels and mesenteric and renal vasculature. The study is otherwise limited without intravenous contrast. IVC is otherwise unremarkable as well Bowel and Mesentery: Ascites is present. Some fluid-filled loops of small bowel are present. No obvious obstruction of the bowel or diverticulosis diverticulitis clearly seen. No evidence of appendicitis. Pelvis: Bladder: Incompletely distended with thickening of the bladder wall Fluid: Large volume of fluid present in the abdomen and pelvis Lymph nodes: No enlarged lymph nodes. Venous access Catheter is present in the left inguinal region Pelvic organs: Previous penile prosthesis present. Prostate calcifications are present. Osseous structures: Degenerative change present along the lumbar spine at L5-S1 with intrapedicular screws stabilizing bars and rods and vacuum phenomena is present. Impression: 1. Ascites present with bilateral low volume effusions left greater than right 2. Vascular calcinosis 3. Previous surgical changes at L5-S1 4. Penile prosthesis implants 5. Small catheter in the left inguinal region appears to be in the venous system 6. Nasogastric tube in place 7. No obvious bowel obstruction. PROCEDURE INTERPRETED AT [facility] DEPARTMENT OF RADIOLOGY Final Report Signed by: Dr. Elpidio Singleton
--- NOTE | 2017-02-08 11:38 | Ultrasound Report ---
Exam: US venous doppler LE RT Indication: Right leg pain and swelling Date: 02/08/2017 9:01 AM Comparison 02/04/2017 Findings: Grayscale color flow duplex/Doppler imaging and spectral analysis waveform imaging was performed with real-time ultrasound with image stored and captured. The right common femoral, superficial femoral, popliteal saphenous veins are patent with normal augmentation and compression. There is no evidence of popliteal or Mariano's cyst. Normal wave form analysis present. Normal color flow Impression: 1. No DVT PROCEDURE INTERPRETED AT [facility] DEPARTMENT OF RADIOLOGY Final Report Signed by: Dr. Elpidio Singleton
[2017-02-08] MEDS: NOREPINEPHRINE 16 MG in SODIUM CHLORIDE 0.9% 234 ML IV SCH (13:50)
[2017-02-08] MEDS: LEVOFLOXACIN INJ 250 MG in PREMIX 1 EACH IV SCH (14:25)
[2017-02-08] MEDS: MIDAZOLAM 100 MG in SODIUM CHLORIDE 0.9% 80 ML IV SCH ×2 (15:30→16:30)
[2017-02-08] MEDS: ATORVASTATIN 10 MG TABLET PO SCH (21:47)
[2017-02-09] MEDS: ALBUTEROL/IPRATROPIUM 3 ML NEB RESP TX SCH ×4 (00:44→19:05)
[2017-02-09] MEDS: INSULIN REGULAR 100 UNIT/ML SUBCUT SCH ×4 (02:53→18:06)
[2017-02-09] MEDS: SODIUM BICARB INJ 50 MEQ in SODIUM CHLORIDE 0.9% 1,000 ML IV SCH ×2 (02:54→14:19)
[2017-02-09] MEDS: CLINDAMYCIN INJ 300 MG in PREMIX 1 EACH IV SCH ×4 (02:54→21:07)
[2017-02-09] MEDS: DOBUTamine 500 MG/250 ML PREMIX IV SCH ×2 (03:31→21:10)
[2017-02-09 04:55] LABS: Basophils % 0.1 % (0.0-0.8); Eosinophils # 0.1 10*3/uL (0.0-0.87); Eosinophils % 0.2 % (0.00-10.9); Hematocrit 24.9 VOL% (42.0-52.0); Hemoglobin 9.3 GM/DL (14.0-18.0); Immature Granulocytes % 4.1 %; Immature Granulocytes Absolute 0.94 #; Lymphocytes # 1.2 10*3/uL (1.4-4.0); Lymphocytes % 5.2 % (21.2-54.2); Mean Corpuscular HGB Conc 37.3 GM/DL (32-36); Mean Corpuscular Hemoglobin 31 PG (27-34); Mean Corpuscular Volume 81.9 FL (87-102); Mean Platelet Volume 12.2 FL (9.6-12.0); Monocytes # 1.2 10*3/uL (0.11-0.8); Monocytes % 5.1 % (1.7-12.7); NRBC # 0.05 10*3/uL; Neutrophils # 19.6 10*3/uL (1.4-7.4); Neutrophils % 85.3 % (38.7-73.9); Platelet Count 156 T/CUMM (130-400); Red Blood Count 3.04 MC/CUMM (3.8-5.5); Red Cell Distribution Width 15.2 % (9.3-17.3)
[2017-02-09 05:24] LABS: Calcium 6.7 MG/DL (8.5-10.1); Osmolality,Calculated 288.9 MOS/KG (273-304); Potassium 4.4 MMOL/L (3.5-5.1)
[2017-02-09 05:32] LABS: Lymphocytes 4 % (20-55); Nucleated Red Blood Cells 1 (0-5); Platelet Estimate Normal; Segmented Neutrophils 93 % (50-85); Total Cells Counted 100
[2017-02-09 05:33] LABS: Giant Platelets Few; Hypochromasia 1+; Ovalocytes Slight
--- NOTE | 2017-02-09 07:24 | EKG Report ---
Stationary ECG Study [facility] Test Date: 02/09/2017 7:24:45 AM Pat Name: KEN MOTA Department: Room: 122 Gender: M Plc Engineer: : 1955 Requested by: Nathalie Copeland Order Number: [id number] Blank MD: ITZEL MIRANDA Intervals [place] Rate: 112 P: 999 FL: 0 QRS: 89 QRSD: 122 T: 270 QT: 369 QTc: 435 Interpretive Statements ATRIAL FIBRILLATION WITH RAPID VENTRICULAR RESPONSE WITH ABERRANT CONDUCTION OR VENTRICULAR PREMATURE COMPLEXES Electronically Signed On 02-09-17 13:42:32 CDT by ITZEL MIRANDA [id number]
--- NOTE | 2017-02-09 07:38 | XRay Report ---
Exam: XR chest 1V Date: 02/09/2017 4:00 AM Comparison: 02/08/2017 Indication: Ventilator Technique:[Portable AP sitting chest] Findings: Stable cardiomegaly and supportive devices. Progressive diffuse parenchymal findings with small left pleural effusion. Artifactual densities limit the exam. Stable mediastinum and osseous structures. Impression: Supportive devices remain in satisfactory position. Status post median sternotomy with persistent cardiomegaly. Progressive pulmonary edema/atelectasis with small left pleural effusion. PROCEDURE INTERPRETED AT [facility] DEPARTMENT OF RADIOLOGY Final Report Signed by: Dr. Elisabet Fry
--- NOTE | 2017-02-09 08:34 | Pulmonology Progress Note ---
Pulmonary - PN: Subj Interval history: Patient is a 61-year-old black man that has an ischemic cardiomyopathy and has an ejection fraction of about 10-15%. He came in with respiratory distress and heart failure and had to be intubated. He also has worsening chronic renal insufficiency. He has been treated for cardiogenic shock with pressors. He has had worsening renal function over the weekend. The creatinine is up to 5.7. His weight has gone up several kilograms. He does have a significant amount of fluid present. He has not been able to do CPAP very long at all. His chest x-ray may be a little worse. Overall his prognosis is very poor. Exam (Progress Note) - Constitutional Vitals: Period Temp Pulse Resp BP Sys/Shook Pulse Ox Last 24 Hr 97.2 F-98.4 F 91-123 13-26 87-130/41-59 92-99 Exam: General appearance: no acute distress (Patient is comfortable on the ventilator at present. He does respond. He does get some sedation.), over weight - Head Head exam: Present: normal inspection, normocephalic - Eye Eye exam: Present: EOMI. Absent: scleral icterus - ENT ENT exam: Present: other (ET tube is in good position.) - Neck Neck exam: Present: normal inspection, lymphadenopathy. Absent: thyromegaly - Respiratory Respiratory exam: Present: He has good breath sounds bilaterally and is moving air reasonably well. His breath sounds are little coarse now. - Cardiovascular Cardiovascular exam: Present: gallop, regular rate and rhythm, systolic murmur - GI/Abdominal GI/Abdominal exam: Present: distended, hypoactive bowel sounds, tenderness, soft. Absent: organomegaly - Extremities Exam Extremities exam: He does have worsening edema of the extremities. - Neurological Exam Neurological exam: Present: alert, he will respond. - Psychiatric Psychiatric exam: Present: normal mood, depressed Results - Labs CBC & BMP: 02/09/17 04:00 02/09/17 04:00 Labs: His PO2 is 113 yesterday with a PCO2 of 28 and a pH of 7.46. - Diagnostic Findings Procedure: Chest x-ray: image reviewed by me, report reviewed by me (Chest x- ray shows marked cardiomegaly with mild CHF changes.) Assessment and Plan (1) Diabetes Status: Chronic Assessment and plan: His glucoses will be monitored. Glucose is 96 this morning. Current Visit: No Qualifiers: Diabetes mellitus type: type 2 Chronic kidney disease stage: stage 4 ( severe) (2) Ischemic cardiomyopathy Status: Chronic Assessment and plan: The patient apparently has a very reduced ejection fraction is now on the ventilator. He is on pressors and has a fairly stable blood pressure. Current Visit: No (3) Renal insufficiency Status: Chronic Assessment and plan: The patient's creatinine is getting worse now is up to 5.7. Current Visit: No (4) Obstructive sleep apnea Status: Acute Assessment and plan: It is unclear how much treatment he has had for obstructive sleep apnea. Current Visit: No (5) Acute respiratory failure Status: Acute Assessment and plan: The patient had to be intubated today because he was quite lethargic and short of breath. He does have a severe cardiomyopathy. He basically has cardiogenic shock at the present time. He is still getting fluids and pressures. His urine output is very low. His renal function is getting worse. His prognosis is very poor. Current Visit: Yes
[2017-02-09] MEDS: ENOXAPARIN 30 MG/0.3 ML SYRINGE SUBCUT SCH (09:32)
[2017-02-09] MEDS: PHENYLEPHRINE INJ 160 MG in SODIUM CHLORIDE 0.9% 234 ML IV SCH (09:32)
[2017-02-09] MEDS: GABAPENTIN 100 MG CAPSULE PO SCH ×3 (09:33→21:08)
[2017-02-09] MEDS: PANTOPRAZOLE 40 MG VIAL IV SCH ×2 (09:33→21:10)
[2017-02-09] MEDS: ASPIRIN CHEW 81 MG TABLET PO SCH (09:33)
[2017-02-09] MEDS: AMIODARONE 200 MG TABLET NG SCH ×2 (09:33→21:07)
[2017-02-09] MEDS: PANTOPRAZOLE 40 MG TABLET PO SCH (10:40)
--- NOTE | 2017-02-09 11:56 | General Surgery Progress Note ---
Assessment and Plan (1) Lower extremity edema Status: Acute Assessment and plan: Continue elevating leg as much as possible and this will likely not resolve until and if the patient can be diuresed to get rid of this extra fluid. I do not think there is any component of infection here or necrotizing fasciitis. Current Visit: Yes (2) Abdominal bloating Status: Acute Assessment and plan: There is nothing on CT scan to suggest the patient's leukocytosis or pressor requirement. He does have a lot of ascites which is likely cardiogenic and similarly is unlikely to improve unless he is able to be diuresis which looks fairly dismal given his worsening renal failure and cardiomyopathy. Current Visit: No Subjective Patient reports: Present: no new complaints, afebrile Narrative: Patient's white blood cell count is decreased to 23,000 29,000 yesterday. No changes from the standpoint of his lower extremities or his abdomen Exam - Constitutional Vitals: Period Temp Pulse Resp BP Sys/Shook Pulse Ox Last 24 Hr 97.1 F-98.4 F 91-119 13-28 87-126/41-60 94-99 General appearance: no acute distress, over weight - Head Head exam: Present: normal inspection - ENT Mouth exam: Present: normal external inspection - Neck Neck exam: Present: normal inspection, trachea midline - Respiratory Respiratory exam: Absent: accessory muscle use, chest wall tenderness - Cardiovascular Cardiovascular exam: Present: RRR. Absent: tachycardia - GI/Abdominal GI/Abdominal exam: Present: ascites, distended, hypoactive bowel sounds, soft - Extremities Exam Extremities exam: Present: other (There is edema and weeping of the right lower extremity. There is no erythema or foul odor or concerning drainage. Some of the skin is sloughing off.) - Skin Skin exam: Present: normal color, warm Results - Labs CBC & BMP: 02/09/17 04:00 02/09/17 04:00
--- NOTE | 2017-02-09 12:37 | Cardiology Progress Note ---
Mehrdad Cline Lesley, JOANNA, am scribing for, and in the presence of, Devyn Thurston MD 12:35. Assessment and Plan - Time spent with patient Time spent with patient: Greater than 30 minutes (1) Ischemic cardiomyopathy Status: Chronic Assessment and plan: He has a severe ischemic cardiomyopathy combined with severe renal insufficiency which is a difficult combination. Continue supportive care and dobutamine drip at 5mcg/min Current Visit: No (2) Lower extremity edema Status: Acute Assessment and plan: Continue wound care to RLE, no sign of infection, Venous Dopplers negative for DVT Current Visit: Yes (3) Abdominal bloating Status: Acute Assessment and plan: Likely ileus? NGT intact without output, abdomen distended but soft, bowel sounds present but distant, consult tailings man for assistance with tube feedings Current Visit: No (4) History of coronary artery bypass graft Status: Chronic Current Visit: No (5) Hyperlipidemia Status: Chronic Current Visit: No Qualifiers: Hyperlipidemia type: other hyperlipidemia Qualified Code(s): E78.4 - Other hyperlipidemia (6) Troponin level elevated Status: Chronic Current Visit: No (7) Congestive heart failure Status: Chronic Assessment and plan: NYHA Class IV, not a candidate for defibrillator therapy Current Visit: Yes Qualifiers: Congestive heart failure type: combined Congestive heart failure chronicity : acute on chronic Qualified Code(s): I50.43 - Acute on chronic combined systolic (congestive) and diastolic (congestive) heart failure (8) Acute on chronic renal failure Status: Acute Assessment and plan: The patient's creatinine has continued to worsen. His urine output is poor. Nephrology is following. Prognosis remains poor. 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 He remains intubated. He is on Levophed 4 mcg/ min and dobutamine 5 mcg/min. The patient remains afebrile. He is intubated and sedated in the intensive care unit though nursing reports that patient awakens and follows simple commands when his sedation is lightened. His right leg has progressed over the weekend. A second venous Doppler was negative for DVT, and surgery did evaluate the leg, however it was not thought to be the source of his infection. Abdominal and pelvic CT done over the weekend revealed ascites with no obvious bowel obstruction. Chest x-ray shows progressive pulmonary edema with small left pleural effusion. Vital signs noted, the patient continues to require vasopressors. Atrial fibrillation noted on telemetry. Overall, his creatinine has worsened (5.7), his weight is up 3 pounds with minimal urine output, and he has not been able to tolerate CPAP trials. Leukocytosis continues at 23,000, antibiotics are Levaquin and clindamycin. His prognosis remains poor. Consider tube feeding recommendations per dietitian, will initiate to see if he tolerates. Current Medications Acetaminophen (Tylenol Tab) 650 mg PO Q6H PRN PRN Reason: Fever, Headache, Mild Pain Hydrocodone Bitart/Acetaminophen ([place] 10-325) 1 tablet PO Q6H ASYA Last Admin: 02/09/17 09:33 Dose: 1 tablet Albuterol/Ipratropium (Duoneb) 3 ml RESP TX RT Q6H ASYA Last Admin: 02/09/17 07:06 Dose: 3 ml Amiodarone HCl (Cordarone Tab) 200 mg NG BID ASYA Last Admin: 02/09/17 09:33 Dose: 200 mg Aspirin () 81 mg PO DAILY ASYA Last Admin: 02/09/17 09:33 Dose: 81 mg Atorvastatin Calcium (Lipitor) 10 mg PO BEDTIME ASYA Last Admin: 02/08/17 21:47 Dose: 10 mg Dextrose/Water (D50) 25 gm IV PRN PRN PRN Reason: Hypoglycemia with IV access Enoxaparin Sodium (Lovenox) 30 mg SUBCUT Q24H ASYA Last Admin: 02/09/17 09:32 Dose: 30 mg Gabapentin (Neurontin Cap/Tab) 100 mg PO TID ASYA Last Admin: 02/09/17 09:33 Dose: 100 mg Glucagon () 1 mg IM PRN PRN PRN Reason: Hypoglycemia w/o IV access Dobutamine HCl/Dextrose () 500 mg in 250 mls @ 5.661 mls/hr IV TITRATE ASYA; 2 MCG/KG/MIN PRN Reason: Protocol Last Admin: 02/09/17 03:31 Dose: 5 mcg/kg/min, 14.15 mls/hr Midazolam HCl 100 mg/ Sodium (Chloride) 100 mls @ 1.88 mls/hr IV TITRATE ASYA; 0.02 MG/KG/HR PRN Reason: Protocol Last Titration: 02/09/17 04:40 Dose: 0 mg/kg/hr, 0 mls/hr Levofloxacin/Dextrose 250 mg/ (Premix) 50 mls @ 50 mls/hr IV Q24H [facility] Last Infusion: 02/08/17 15:30 Dose: Infused Magnesium Sulfate 2 gm/ Premix 50 mls @ 25 mls/hr IV .PER PROTOCOL PRN; Protocol PRN Reason: Per Protocol Last Infusion: 02/06/17 12:30 Dose: Infused Phenylephrine HCl 160 mg/ (Sodium Chloride) 250 mls @ 3.75 mls/hr IV TITRATE ASYA; 40 MCG/MIN PRN Reason: Protocol Last Admin: 02/09/17 09:32 Dose: Not Given Norepinephrine Bitartrate 16 (mg/ Sodium Chloride) 250 mls @ 1.87 mls/hr IV TITRATE ASYA; 2 MCG/MIN PRN Reason: Protocol Last Titration: 02/09/17 08:07 Dose: 4 mcg/min, 3.75 mls/hr Clindamycin Phosphate 300 mg/ (Premix) 50 mls @ 100 mls/hr IV Q6H [facility] Last Admin: 02/09/17 09:32 Dose: 100 mls/hr Sodium Bicarbonate 50 meq/ (Sodium Chloride) 1,050 mls @ 100 mls/hr IV .[id number] [facility] Last Admin: 02/09/17 02:54 Dose: 100 mls/hr Insulin Human Regular (Humulin R) 0 unit SUBCUT Q6HR ASYA PRN Reason: Protocol Last Admin: 02/09/17 06:09 Dose: Not Given Ondansetron HCl (Zofran Inj) 4 mg IV Q4H PRN PRN Reason: Nausea Pantoprazole Sodium (Protonix Inj) 40 mg IV BID [facility] Last Admin: 02/09/17 09:33 Dose: 40 mg Exam (Progress Note) - Constitutional Vitals: Period Temp Pulse Resp BP Sys/Shook Pulse Ox Last 24 Hr 97.2 F-98.4 F 91-113 13-22 87-130/41-60 94-99 Exam: General: [Intubated, in bed with 2 point restraint] [Appears comfortable.] HEENT: Pupils pinpoint bilaterally, normocephalic, atraumatic]. [Mucous membranes moist.] [No jaundice noted.] [Conjunctiva moist and clear, sclerae anicteric.] Neck: [No JVD/HJR, no thyromegaly or lymphadenopathy noted.]] Cardiac: [Irregularly irregular rate and rhythm.] [No murmur rub or gallop.] [ ] Lungs: [Essentially clear to auscultation with rales noted to bilateral bases, orotracheal tube in place] Abdomen: bowel sounds normoactive.] [Abdomen distended, NG tube in place.] [ No abdominal bruit or thrill noted.] [No masses noted.] Musculoskeletal: [Right leg with open blisters from medial thigh to calf, progressively worsened.] [Decreased range of motion is noted to all extremities ] Extremities: [No clubbing, cyanosis noted.] [Edema noted to bilateral lower extremities.] [Upper extremity pulses 2+.] [Lower extremity pulses 2+.] [ Capillary refill less than 3 seconds.] Skin: ] [Skin breakdown noted to medial right lower leg] Neuro: Sedate, intubated] ] [No essential tremor is appreciated.] Result/EKG - Labs CBC & BMP: 02/09/17 04:00 02/09/17 04:00 Lab Results: I have reviewed the past 24 hour labs Labs: Laboratory Results - last 24 hr 02/08/17 02/08/17 02/08/17 06:23 10:00 11:31 WBC RBC Hgb Hct MCV MCH MCHC RDW Plt Count MPV Neut % (Auto) Lymph % (Auto) [place] % (Auto) Eos % (Auto) Baso % (Auto) Neut # (Auto) Lymph # (Auto) [place] # (Auto) Eos # (Auto) Baso # (Auto) Total Counted Immature Gran % Nucleated RBC % Immature Gran # Segmented Neutrophils Lymphocytes Monocytes Nucleated RBCs Nucleated RBCs # Platelet Estimate Giant Platelets Immature Plt Fraction Hypochromasia Ovalocytes Sodium Potassium Chloride Carbon Dioxide Anion Gap BUN Creatinine GFR Calculation BUN/Creatinine Ratio Glucose POC Glucose 146 H 120 H Calculated Osmolality Lactic Acid 1.6 Calcium Magnesium 02/08/17 02/09/17 02/09/17 18:21 04:00 04:00 WBC 23.0 H RBC 3.04 L Hgb 9.3 L Hct 24.9 L MCV 81.9 L MCH 31 MCHC 37.3 H RDW 15.2 Plt Count 156 MPV 12.2 H Neut % (Auto) 85.3 H Lymph % (Auto) 5.2 L [place] % (Auto) 5.1 Eos % (Auto) 0.2 Baso % (Auto) 0.1 Neut # (Auto) 19.6 H Lymph # (Auto) 1.2 L [place] # (Auto) 1.2 H Eos # (Auto) 0.1 Baso # (Auto) 0.0 Total Counted 100 Immature Gran % 4.1 Nucleated RBC % 0.2 Immature Gran # 0.94 Segmented Neutrophils 93 H Lymphocytes 4 L Monocytes 3 Nucleated RBCs 1 Nucleated RBCs # 0.05 Platelet Estimate Normal Giant Platelets Few Immature Plt Fraction 0.0 Hypochromasia 1+ Ovalocytes Slight Sodium 129 L Potassium 4.4 Chloride 96 L Carbon Dioxide 22 Anion Gap 15.4 H BUN 98 H Creatinine 5.70 H GFR Calculation 14 BUN/Creatinine Ratio 17.00 Glucose 96 POC Glucose 117 H Calculated Osmolality 288.9 Lactic Acid Calcium 6.7 L Magnesium 2.0 - Diagnostic Findings Procedure: Chest x-ray: report reviewed by me - EKG EKG results: interpreted by oh EKG shows: atrial fibrillation IKarena Michael, MD, personally performed the services described in this documentation, ascribed by Sheila Cronin NP in my presence, and it is both accurate and complete 237 .
[2017-02-09] MEDS ORDERED: ZINC OXIDE PASTE 113 GM TUBE TOP PRN (15:30)
[2017-02-09] MEDS: LEVOFLOXACIN INJ 250 MG in PREMIX 1 EACH IV SCH (16:03)
--- NOTE | 2017-02-09 20:05 | Nephrology Progress Note ---
Nephrology - PN: Subj Interval history: The patient remains ventilated. At this time continuing with medical management. Family is at the bedside and updated them regarding patient's renal status. Patient remains ventilated. Serum creatinine is 4.5. His urine output is picking up. He did have an episode of atrial fibrillation RVR this morning. Now on amiodarone8. 02/09/2017. Patient's condition is continued to be the same. Serum creatinine is now up to 5.7. He remains ventilated. Exam (PN)-Nephrology - Vital Signs Vital signs: Period Temp Pulse Resp BP Sys/Shook Pulse Ox Last 24 Hr 97.1 F-97.8 F 96-119 13-30 80-116/40-98 94-99 - General Appearance General appearance: intubated Cardiology: regular rate Gastrointestinal: normoactive bowel sounds, no tenderness Integumentary: no rash - Lab 02/09/17 04:00 02/09/17 04:00 Most recent lab results ABG pH 7.464 (7.35-7.45) H 02/08/17 04:00 ABG pCO2 28.3 MM HG (35-48) L 02/08/17 04:00 ABG pO2 113.0 MM HG (80-95) H 02/08/17 04:00 ABG HCO3 22.3 MMOL/L (20-26) 02/08/17 04:00 ABG O2 Saturation 98.3 % (95-100) 02/08/17 04:00 Calcium 6.7 MG/DL (8.5-10.1) L 02/09/17 04:00 Magnesium 2.0 MG/DL (1.8-2.4) 02/09/17 04:00 Assessment and Plan (1) Congestive heart failure Status: Chronic Current Visit: Yes Qualifiers: Congestive heart failure type: combined Congestive heart failure chronicity : acute on chronic Qualified Code(s): I50.43 - Acute on chronic combined systolic (congestive) and diastolic (congestive) heart failure (2) Diabetes Status: Chronic Current Visit: No Qualifiers: Diabetes mellitus type: type 2 Chronic kidney disease stage: stage 4 ( severe) (3) Ischemic cardiomyopathy Status: Chronic Current Visit: No (4) Renal insufficiency Status: Chronic Assessment and plan: Renal function is about the same. Continue with IV fluids. Current Visit: No (5) Cardiomyopathy due to hypertension Status: Chronic Current Visit: No
[2017-02-09] MEDS: ATORVASTATIN 10 MG TABLET PO SCH (21:07)
[2017-02-10] MEDS: ALBUTEROL/IPRATROPIUM 3 ML NEB RESP TX SCH ×4 (00:43→20:14)
[2017-02-10] MEDS: INSULIN REGULAR 100 UNIT/ML SUBCUT SCH ×4 (01:52→18:03)
[2017-02-10] MEDS: SODIUM BICARB INJ 50 MEQ in SODIUM CHLORIDE 0.9% 1,000 ML IV SCH ×2 (01:53→12:41)
[2017-02-10] MEDS: CLINDAMYCIN INJ 300 MG in PREMIX 1 EACH IV SCH ×4 (03:24→21:53)
[2017-02-10 05:01] LABS: ABG Base Excess -2.1 MMOL/L (-2.5-2.5); ABG HCO3 22.7 MMOL/L (20-26); ABG PCO2 28.9 MM HG (35-48); ABG PH 7.466 (7.35-7.45); ABG TCO2 19.1 MMOL/L (23-27)
[2017-02-10 05:24] LABS: Phosphorous 6.2 MG/DL (2.5-4.9); Prealbumin 3.8 MG/DL (20-40)
[2017-02-10] MEDS: MIDAZOLAM 100 MG in SODIUM CHLORIDE 0.9% 80 ML IV SCH (07:33)
[2017-02-10] MEDS: NOREPINEPHRINE 16 MG in SODIUM CHLORIDE 0.9% 234 ML IV SCH ×2 (07:33→09:27)
--- NOTE | 2017-02-10 08:14 | Pulmonology Progress Note ---
Pulmonary - PN: Subj Interval history: Patient is a 61-year-old black man that has an ischemic cardiomyopathy and has an ejection fraction of about 10-15%. He came in with respiratory distress and heart failure and had to be intubated. He also has worsening chronic renal insufficiency. He has been treated for cardiogenic shock with pressors. He has had worsening renal function over the weekend. The creatinine is up to 5.7. His weight has gone up several kilograms. His oxygenation and chest x- ray have been reasonably stable. He is completed stage II of weaning. He does have a severe cardiomyopathy. Exam (Progress Note) - Constitutional Vitals: Period Temp Pulse Resp BP Sys/Shook Pulse Ox Last 24 Hr 97.1 F-98.1 F 96-128 13-30 75-116/40-98 94-99 Exam: General appearance: no acute distress (Patient is comfortable on the ventilator at present. He does respond. He does get some sedation.), over weight - Head Head exam: Present: normal inspection, normocephalic - Eye Eye exam: Present: EOMI. Absent: scleral icterus - ENT ENT exam: Present: other (ET tube is in good position.) - Neck Neck exam: Present: normal inspection, lymphadenopathy. Absent: thyromegaly - Respiratory Respiratory exam: Present: He has good breath sounds bilaterally and is moving air reasonably well. His breath sounds are little coarse now. He does not have any wheezing. - Cardiovascular Cardiovascular exam: Present: gallop, regular rate and rhythm, systolic murmur - GI/Abdominal GI/Abdominal exam: Present: distended, hypoactive bowel sounds, tenderness, soft. He does have some ascites. absent: organomegaly - Extremities Exam Extremities exam: He does have worsening edema of the extremities. - Neurological Exam Neurological exam: Present: alert, he will respond. - Psychiatric Psychiatric exam: Present: normal mood, depressed Results - Labs CBC & BMP: 02/09/17 04:00 02/09/17 04:00 Labs: His PO2 is 147 with a PCO2 of 28 and a pH of 7.46 - Diagnostic Findings Procedure: Chest x-ray: image reviewed by me, report reviewed by me (Chest x- ray shows cardiomegaly but no overt heart failure.) Assessment and Plan (1) Diabetes Status: Chronic Assessment and plan: His glucoses will be monitored. Glucose is 135 this morning. Current Visit: No Qualifiers: Diabetes mellitus type: type 2 Chronic kidney disease stage: stage 4 ( severe) (2) Ischemic cardiomyopathy Status: Chronic Assessment and plan: The patient apparently has a very reduced ejection fraction and is now on the ventilator. He is on pressors and has a fairly stable blood pressure. Current Visit: No (3) Renal insufficiency Status: Chronic Assessment and plan: The patient's creatinine is getting worse now is up to 5.7. Current Visit: No (4) Obstructive sleep apnea Status: Acute Assessment and plan: It is unclear how much treatment he has had for obstructive sleep apnea. He is on the ventilator now. Current Visit: No (5) Acute respiratory failure Status: Acute Assessment and plan: The patient had to be intubated today because he was quite lethargic and short of breath. He does have a severe cardiomyopathy. He basically has cardiogenic shock at the present time. He is still on low-dose Levophed. He has been getting bicarbonate infusion. His weight is up and he does have considerable edema. He is doing CPAP a little better. Overall his outlook is very poor. Current Visit: Yes (6) Atrial fibrillation with RVR Status: Acute Assessment and plan: Patient is having rapid atrial fibrillation and is on amiodarone now. Current Visit: Yes
--- NOTE | 2017-02-10 08:19 | XRay Report ---
XR chest 1V Indication: Ventilator Comparison: Chest x-ray dated February 09, 2017 Technique: Single frontal view of the chest. Findings: Endotracheal tube stable in positioning. Continued cardiomegaly status post sternotomy. Mildly improved diffuse hazy consolidation throughout the lungs with little residual remaining. Left basilar atelectasis/consolidation remains as well as probable small left pleural fluid. Visualized osseous and surrounding soft tissue structures appear grossly unchanged. IMPRESSION: As above. PROCEDURE INTERPRETED AT [facility] ([facility] DEPARTMENT OF RADIOLOGY Final Report Signed by: Dr Charles Morel
[2017-02-10 08:32] LABS: Basophils % 0.2 % (0.0-0.8); Eosinophils % 0.1 % (0.00-10.9); Hematocrit 25.7 VOL% (42.0-52.0); Hemoglobin 9.1 GM/DL (14.0-18.0); Immature Granulocytes % 4.8 %; Immature Granulocytes Absolute 1.18 #; Lymphocytes # 0.9 10*3/uL (1.4-4.0); Lymphocytes % 3.8 % (21.2-54.2); Mean Corpuscular HGB Conc 35.4 GM/DL (32-36); Mean Corpuscular Hemoglobin 29 PG (27-34); Mean Corpuscular Volume 82.9 FL (87-102); Mean Platelet Volume 11.8 FL (9.6-12.0); Monocytes # 1.3 10*3/uL (0.11-0.8); Monocytes % 5.3 % (1.7-12.7); NRBC # 0.02 10*3/uL; Neutrophils # 20.9 10*3/uL (1.4-7.4); Neutrophils % 85.8 % (38.7-73.9); Platelet Count 186 T/CUMM (130-400); Red Cell Distribution Width 15.6 % (9.3-17.3); White Blood Count 24.4 T/CUMM (4-12)
--- NOTE | 2017-02-10 08:35 | EKG Report ---
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
[2017-02-10 09:22] LABS: Calcium 6.8 MG/DL (8.5-10.1); Osmolality,Calculated 293.8 MOS/KG (273-304); Potassium 4.4 MMOL/L (3.5-5.1)
--- NOTE | 2017-02-10 09:23 | General Surgery Progress Note ---
Assessment and Plan (1) Lower extremity edema Status: Acute Assessment and plan: Continue elevating right leg. No operative intervention is recommended at this time. Current Visit: Yes (2) Abdominal bloating Status: Acute Assessment and plan: No operative pathology Current Visit: No Subjective Patient reports: Present: afebrile Exam - Constitutional Vitals: Period Temp Pulse Resp BP Sys/Shook Pulse Ox Last 24 Hr 97.1 F-98.1 F 96-128 13-30 75-115/40-98 94-99 General appearance: mild distress, over weight - Head Head exam: Present: normal inspection - Eye Eye exam: Present: EOMI - ENT ENT exam: Present: normal exam Mouth exam: Present: normal external inspection - Neck Neck exam: Present: normal inspection, trachea midline - Cardiovascular Cardiovascular exam: Present: RRR. Absent: tachycardia - GI/Abdominal GI/Abdominal exam: Present: ascites, soft - Extremities Exam Extremities exam: Present: other (There is epidermal sloughing on the right leg with weeping of fluid consistent with edema. There is no erythema or induration.) - Neurological Exam Neurological exam: Present: alert - Skin Skin exam: Present: normal color, warm Results - Labs CBC & BMP: 02/10/17 08:16 02/09/17 04:00
[2017-02-10] MEDS: PHENYLEPHRINE INJ 160 MG in SODIUM CHLORIDE 0.9% 234 ML IV SCH (09:26)
[2017-02-10] MEDS: GABAPENTIN 100 MG CAPSULE PO SCH ×3 (09:27→21:54)
[2017-02-10] MEDS: ENOXAPARIN 30 MG/0.3 ML SYRINGE SUBCUT SCH (09:27)
[2017-02-10] MEDS: ASPIRIN CHEW 81 MG TABLET PO SCH (09:28)
[2017-02-10] MEDS: PANTOPRAZOLE 40 MG VIAL IV SCH ×2 (09:28→21:53)
[2017-02-10] MEDS: AMIODARONE 200 MG TABLET NG SCH ×2 (09:28→21:53)
[2017-02-10 09:44] LABS: Band Neutrophils 1 % (0-10); Hypochromasia 1+; Lymphocytes 7 % (20-55); Microcytosis Slight; Nucleated Red Blood Cells 2 (0-5); Segmented Neutrophils 85 % (50-85); Target Cells Slight; Total Cells Counted 100
--- NOTE | 2017-02-10 09:44 | Nephrology Progress Note ---
Nephrology - PN: Subj Interval history: The patient remains ventilated. At this time continuing with medical management. Family is at the bedside and updated them regarding patient's renal status. Patient remains ventilated. Serum creatinine is 4.5. His urine output is picking up. He did have an episode of atrial fibrillation RVR this morning. Now on amiodarone8. 02/09/2017. Patient's condition is continued to be the same. Serum creatinine is now up to 5.7. He remains ventilated. 02/10/2017. Patient's condition is about the same. Minimal urine output. Serum creatinine is now up to 6.1. Potassium is 4.4. Minimal urine output again noted. At this time making preparations for renal replacement therapy. Have asked surgery for dialysis catheter. Will check a hepatitis panel. Exam (PN)-Nephrology - Vital Signs Vital signs: Period Temp Pulse Resp BP Sys/Shook Pulse Ox Last 24 Hr 97.1 F-98.1 F 96-128 13-30 75-115/40-98 94-99 - General Appearance General appearance: well-developed, intubated EENT: ATNC Neck: supple Respiratory: clear Cardiology: no edema, regular rate, regular rhythm Gastrointestinal: normoactive bowel sounds, no tenderness Integumentary: no rash Musculoskeletal: no deformities - Lab 02/10/17 08:16 02/10/17 08:16 Most recent lab results ABG pH 7.466 (7.35-7.45) H 02/10/17 04:54 ABG pCO2 28.9 MM HG (35-48) L 02/10/17 04:54 ABG pO2 147.0 MM HG (80-95) H 02/10/17 04:54 ABG HCO3 22.7 MMOL/L (20-26) 02/10/17 04:54 ABG O2 Saturation 99.0 % (95-100) 02/10/17 04:54 Calcium 6.8 MG/DL (8.5-10.1) L 02/10/17 08:16 Phosphorus 6.2 MG/DL (2.5-4.9) H 02/10/17 04:30 Magnesium 2.0 MG/DL (1.8-2.4) 02/10/17 08:16 Assessment and Plan (1) Congestive heart failure Status: Chronic Current Visit: Yes Qualifiers: Congestive heart failure type: combined Congestive heart failure chronicity : acute on chronic Qualified Code(s): I50.43 - Acute on chronic combined systolic (congestive) and diastolic (congestive) heart failure (2) Diabetes Status: Chronic Current Visit: No Qualifiers: Diabetes mellitus type: type 2 Chronic kidney disease stage: stage 4 ( severe) (3) Ischemic cardiomyopathy Status: Chronic Current Visit: No (4) Renal insufficiency Status: Chronic Assessment and plan: Progressive renal failure. Will get a hepatitis panel. Make preparations for dialysis catheter and dialysis for 2 hours today. Current Visit: No (5) Cardiomyopathy due to hypertension Status: Chronic Current Visit: No
[2017-02-10 09:45] LABS: Platelet Estimate Adequate
[2017-02-10] MEDS ORDERED: CALCIUM GLUCONATE 1,000 MG in SODIUM CHLORIDE 0.9% 100 ML IV ONE (10:05)
[2017-02-10 10:51] LABS: Hepatitis A Ab IgM Quant 0.06 Index; Hepatitis A Ab IgM Result Negative (Negative); Hepatitis B Core IgM Quant 0.12 Index; Hepatitis B Core IgM Result Negative (Negative); Hepatitis B Surface Ag Quant 0.51 Index; Hepatitis B Surface Ag Result Negative (Negative); Hepatitis C Virus Ab Quant 0.09 Index; Hepatitis C Virus Ab Result Negative (Negative)
[2017-02-10] MEDS: LEVOFLOXACIN INJ 250 MG in PREMIX 1 EACH IV SCH (15:42)
[2017-02-10] MEDS: DOBUTamine 500 MG/250 ML PREMIX IV SCH ×2 (16:26→17:28)
[2017-02-10] MEDS ORDERED: LORazepam 2 MG/1 ML VIAL IV PRN (16:30)
[2017-02-10] MEDS: PROPOFOL 1,000 MG/100 ML BOTTLE IV SCH (20:55)
--- NOTE | 2017-02-10 21:30 | Urology Consultation ---
Assessment and Plan (1) Paraphimosis Problem details: Paraphimosis, reduced at bedside Status: Acute Assessment and plan: Paraphimosis was reduced. Nurses instructed use bacitracin ointment twice daily for next 5 days. Instructed to reduce foreskin after Carvalho placement and care. Current Visit: Yes (2) Other priapism Problem details: Penile implant was deflated, and priapism resolved Status: Acute Assessment and plan: Suction nursing staff on proper deflation of penile pump. Instructed not to inflate the pump as this may lead to erosion. Thanks for the opportunity to participate in the care of this patient. Current Visit: Yes History of Present Illness - Data of Consult Consult date: 02/10/17 - Consult Narrative History of present illness: Mr. Fields is a 61 year old male who is in the CCU with multiple comorbidities. He is intubated and sedated. He has ischemic cardiomyopathy, severe congestive heart failure, renal failure, and is currently on a dopamine infusion. He has a penile implant. He had a Carvalho catheter placed due to renal failure. He was noted to have his pump inflated almost 24 hours ago per nursing staff. The nursing staff attempted to deflate, but unfortunately it was inflated further. I was consulted for evaluation. History is only available per the chart and nursing report. CC: Dl Campa MD Priapism - Home Medications and Allergies Home Medications: Home Medications Medication Instructions Recorded Confirmed Type Aspirin [Ecotrin] 81 mg PO DAILY 09/29/14 02/06/17 History Atorvastatin [Lipitor] 10 mg PO BEDTIME 09/29/14 02/06/17 History HYDROcodone/ACETAMIN 10-325 [[place] 1 tablet PO Q6H 09/29/14 02/06/17 History 10-325] Insulin Lispro Prot/Lisp 75/25 10 units SUBCUT QPM 09/29/14 02/06/17 History [HumaLOG Mix 75/25] Insulin Lispro Prot/Lisp 75/25 25 units SUBCUT QAM 09/29/14 02/06/17 History [HumaLOG Mix 75/25] Multivitamin [Multivitamins] 1 each PO DAILY 09/29/14 02/06/17 History amLODIPine [Norvasc] 10 mg PO DAILY 09/29/14 02/06/17 History Losartan [Cozaar] 25 mg PO BID #60 tablet 10/02/14 02/06/17 Rx Acetaminophen Tab [Tylenol Tab] 325 mg PO BID #14 tablet 09/04/16 02/06/17 Rx Furosemide Tab [Lasix Tab] 80 mg PO DAILY #30 tablet 09/04/16 02/06/17 Rx Gabapentin Cap/Tab [Neurontin 100 mg PO TID #21 capsule 09/04/16 02/06/17 Rx Cap/Tab] Pantoprazole Tab [Protonix Tab] 40 mg PO BID@0700,1900 #60 tablet 09/04/1602/06 Rx traMADol TAB [Ultram] 50 mg PO BID #14 tablet 09/04/16 02/06/17 Rx Allergies/Adverse Reactions: Allergies Allergy/AdvReac Type Severity Reaction Status Date / Time codeine Allergy RASH Verified 02/04/17 05:35 Penicillins Allergy ITCHING Verified 02/04/17 05:35 morphine AdvReac Hallucinati Verified 02/04/17 05:35 ng ROS unobtainable: due to endotracheal tube Exam - Constitutional Vitals: Period Temp Pulse Resp BP Sys/Shook Pulse Ox Last 24 Hr 97.4 F-98.1 F 98-128 12- 75-115/44-89 93-99 General appearance: other (Ill-appearing) - Head Head exam: Present: atraumatic - Eye Eye exam: Present: periorbital swelling - ENT ENT exam: Present: other (Endotracheal tube in place) - Neck Neck exam: Present: other (Swollen) - Respiratory Respiratory exam: Present: decreased breath sounds, other (Ventilated) - Cardiovascular Cardiovascular exam: Present: irregular rhythm, JVD - GI/Abdominal GI/Abdominal exam: Present: ascites, soft. Absent: rebound - Genitourinary Genitourinary: penile edema, penile discharge (Around the catheter, yellow mucus ), other (Firm bilateral corpora with edematous glans penis. Paraphimosis with tight band noted) - Extremities Exam Extremities exam: Present: edema - Neurological Exam Neurological exam: Present: altered, other (Response to pain) - Psychiatric Psychiatric exam: Present: agitated, anxious - Skin Skin exam: Present: vesicles, other (Multiple weeping lesions) Results - Labs CBC & BMP: 02/10/17 08:16 02/10/17 08:16 Lab Results: I have reviewed the past 24 hour labs Procedures - Burn Care/Dressing Genitals Debridement necessary: No (Using manual compression the glans and foreskin- reduced Paraphimosis) Type of dressing: antibiotic ointment Neurovascular qualities intact after dressing application: Yes Patient tolerated procedure: no complications Additional comments: Paraphimosis manually reduce. He did have some penile erosions, and the nurse was instructed to start bacitracin ointment twice daily for next 5 days. The penile pump was located in the scrotum. The deflate button was identified and the cylinders were emptied of fluid. The penis was deflated. A Carvalho catheter was secured to the left thigh.
[2017-02-10] MEDS: ATORVASTATIN 10 MG TABLET PO SCH (21:54)
--- NOTE | 2017-02-10 22:36 | Hospitalist Consult Note ---
Assessment and Plan (1) Ileus, unspecified Status: Acute Assessment and plan: The abdomen is distended with elevated residuals. Reglan was initiated, will add bowel regimen as well and obtain an abdominal film in the a.m. Continue to monitor closely and reassess residuals. Once less than 350 will initiate low- dose tube feeds and resume as tolerated. Dietary following appreciate any new recommendations. Current Visit: Yes (2) Acute respiratory failure Status: Acute Assessment and plan: Continue to follow pulmonary's plan of care. Patient is receiving adequate gas exchange. No acute distress. Nursing did request sedation and dipper Van was added. Current Visit: Yes Qualifiers: Respiratory failure complication: unspecified whether with hypoxia or hypercapnia Qualified Code(s): J96.00 - Acute respiratory failure, unspecified whether with hypoxia or hypercapnia (3) Paraphimosis Problem details: Paraphimosis, reduced at bedside Status: Acute Assessment and plan: The patient has a penile implant. His pump was inflated 24 hours ago. Urology was consulted to reduce paraphimosis. Current Visit: Yes (4) Open wounds involving multiple regions of lower extremity without complication Problem details: Open blisters from gross anasarca Status: Acute Assessment and plan: Consult wound care for open blister management. Current Visit: Yes (5) Atrial fibrillation with RVR Status: Acute Assessment and plan: Rate controlled, continue po amiodarone, Cardiology following. Current Visit: Yes (6) Ischemic cardiomyopathy Status: Chronic Assessment and plan: Continue to follow Cardiology recommendations. Currently on Dobutamine. Current Visit: No (7) Acute on chronic renal failure Status: Acute Assessment and plan: Plans for HD in am. We will change DVT px from Lovenox to Heparin. Renal dose medications per Nephrology recommendations. Current Visit: Yes History of Present Illness - Data of Consult Consult date: 02/10/17 Requesting Physician: Dl Campa - Consult Narrative Reason for consult: Tube feed management History of present illness: Mr. Fields is a 61 year old male with past medical history significant for CAD, ischemic cardiomyopathy with NYHA class III, hyperlipidemia, hypertension, PVD, obesity, systolic and diastolic heart failure, diabetes type 2, former smoker that presented to the hospital with shortness of breath and orthopnea and subsequently coded and went into cardiogenic shock and acute respiratory failure and is now located in the critical care unit. He has developed acute renal failure and acutely decompensated heart failure currently requiring inotropic support on Dobutrex and has gross anasarca with weeping wounds and distended abdomen not tolerating tube feeds. His currently mechanically ventilated on assist control with adequate gas exchange per ABG and appears to be in no respiratory distress. There are plans to start hemodialysis in the a.m. most recent BUN and creatinine is 109 with a creatinine of 6.10. Hospitalists were consulted for increased tube feed residuals. The patient currently has a distended abdomen with residuals greater than 350 mL. He is currently on Nepro and is being held. Chest xray revealed support lines in adequate position continued cardiomegaly and consolidation and left basilar atelectasis as well as small left pleural effusion. Venous doppler of lower extremeties was negative for DVT. Most recent labs include ph of 7.46/pco2 of 28.9 po2 of 147 on assist control with TV 650 rat 14 peep of 5 and Fio2 of 40%. He continues to have leukocytosis with elevated neutrophils, normocytic anemia, and hyponatremia, hypochloremia, and,uremia. He is currently afebrile on Levaquin and Clindamycin. He is not requiring vasoactive drugs for hypotension at this time only Dobtrex. He is being sedated with Diprivan. Patient is intubated and sedated. Unable to obtain information about past medical history due to patient being nonverbal. All information was obtained from nursing or medical documentation. CC: Intubated at this time. Nonverbal - Home Medications and Allergies Home Medications: Home Medications Medication Instructions Recorded Confirmed Type Aspirin [Ecotrin] 81 mg PO DAILY 09/29/14 02/06/17 History Atorvastatin [Lipitor] 10 mg PO BEDTIME 09/29/14 02/06/17 History HYDROcodone/ACETAMIN 10-325 [[place] 1 tablet PO Q6H 09/29/14 02/06/17 History 10-325] Insulin Lispro Prot/Lisp 75/25 10 units SUBCUT QPM 09/29/14 02/06/17 History [HumaLOG Mix 75/25] Insulin Lispro Prot/Lisp 75/25 25 units SUBCUT QAM 09/29/14 02/06/17 History [HumaLOG Mix 75/25] Multivitamin [Multivitamins] 1 each PO DAILY 09/29/14 02/06/17 History amLODIPine [Norvasc] 10 mg PO DAILY 09/29/14 02/06/17 History Losartan [Cozaar] 25 mg PO BID #60 tablet 10/02/14 02/06/17 Rx Acetaminophen Tab [Tylenol Tab] 325 mg PO BID #14 tablet 09/04/16 02/06/17 Rx Furosemide Tab [Lasix Tab] 80 mg PO DAILY #30 tablet 09/04/16 02/06/17 Rx Gabapentin Cap/Tab [Neurontin 100 mg PO TID #21 capsule 09/04/16 02/06/17 Rx Cap/Tab] Pantoprazole Tab [Protonix Tab] 40 mg PO BID@0700,1900 #60 tablet 09/04/1602/06 Rx traMADol TAB [Ultram] 50 mg PO BID #14 tablet 09/04/16 02/06/17 Rx Allergies/Adverse Reactions: Allergies Allergy/AdvReac Type Severity Reaction Status Date / Time codeine Allergy RASH Verified 02/04/17 05:35 Penicillins Allergy ITCHING Verified 02/04/17 05:35 morphine AdvReac Hallucinati Verified 02/04/17 05:35 ng Medical,Surgical,& Family Hx - Medical History Cardio: History of: CHF (NYHA IV), CAD, Hypertension, [place], PVD, Cardiovascular Problems (CABG, [place]) Psychological: History of: Anxiety Disorders Endocrine: History of: Diabetes Mellitus (IDDM), Dyslipidemia Respiratory: History of: COPD Renal: History of: Renal Failure, Renal Problems (Renal insufficiency) Gastrointestinal: History of: GERD, GI Problems (Esophageal stricture) Musculoskeletal: History of: Back/Neck Problems (Back surgery X 3), Degenerative Disk Disease, Herniated Disk, Musculoskeletal Problems (Arthritis) No history of: Amputation - Surgical History Cardiac Surgeries: Sugical HX of: Cardiac Catheterization, Cardiac Surgery ( CABG in ) Thoracic Surgeries: Patient denies;: Lobectomy Neurologic Surgeries: Patient denies: Neurologic Surgery HEENT Surgeries: Surgical HX of: Eye Surgery Patient denies: Tonsilectomy & Adenoidectomy - Family History Family History: Reports;: Family Diabetes, Family Heart Disease, Family Hypertension, Family Stroke - Social History Smoking Status: Former smoker Frequency of Alcohol Use: Occasionally Type of Drug Use: None ROS unobtainable: due to mental status, other (Intubated and sedated and nonverbal. ) Exam - Constitutional Vitals: Period Temp Pulse Resp BP Sys/Shook Pulse Ox Last 24 Hr 97.4 F-98.1 F 100-127 12-27 77-115/44-89 93-99 General appearance: no acute distress (gross anasarca), other - Head Head exam: Present: normal inspection, normocephalic, atraumatic - Eye Eye exam: Present: periorbital swelling Pupils: Present: DEANA - ENT ENT exam: Present: other (Oral ETT and gastric tube) - Neck Neck exam: Present: normal inspection - Respiratory Respiratory exam: Present: rhonchi (coarse rhonchi bilaterally with crackles in lower base of left lower lobe. ) - Cardiovascular Cardiovascular exam: Present: tachycardia - GI/Abdominal GI/Abdominal exam: Present: distended, other (no mass present. hypoactive bowel sounds actually on a few. ) - Extremities Exam Extremities exam: Present: edema, other (gross edema right leg worse than left. Severe weakness bilaterally. weeping wounds and blisters on right leg. ) - Neurological Exam Neurological exam: Present: other (sedated. Will open eyes but does not attempt to answer questions. ) - Psychiatric Psychiatric exam: Present: other (sedated) - Skin Skin exam: Present: other (weeping blisters and open wounds on right lower extremety. No sacral wound noted. Patient was turned and assessed. ) Results - Labs CBC & BMP: 02/10/17 08:16 02/10/17 08:16 Labs: leukocytosis, with neutrophilia, normocytic anemia, hyponatremia, hypochloremia , uremia - EKG EKG shows: atrial fibrillation - Diagnostic Findings Procedure: Chest x-ray: image reviewed by oh Quality Measures - VTE Deep Vein Thrombosis/Pulmonary Embolism Present on Admission: No
[2017-02-11] MEDS: METOCLOPRAMIDE 10 MG/2 ML VIAL IV SCH ×4 (00:24→19:05)
[2017-02-11] MEDS: INSULIN REGULAR 100 UNIT/ML SUBCUT SCH ×4 (00:30→19:05)
[2017-02-11] MEDS: ALBUTEROL/IPRATROPIUM 3 ML NEB RESP TX SCH ×4 (00:58→20:37)
[2017-02-11] MEDS: SODIUM BICARB INJ 50 MEQ in SODIUM CHLORIDE 0.9% 1,000 ML IV SCH ×3 (01:09→22:28)
[2017-02-11] MEDS: CLINDAMYCIN INJ 300 MG in PREMIX 1 EACH IV SCH ×2 (03:21→09:54)
[2017-02-11 04:53] LABS: ABG Base Excess -2.3 MMOL/L (-2.5-2.5); ABG HCO3 19.8 MMOL/L (20-26); ABG Oxygen Saturation 98.8 % (95-100); ABG PCO2 25.8 MM HG (35-48); ABG PH 7.504 (7.35-7.45); ABG TCO2 20.6 MMOL/L (23-27)
[2017-02-11 05:23] LABS: Basophils % 0.1 % (0.0-0.8); Eosinophils # 0.1 10*3/uL (0.0-0.87); Eosinophils % 0.2 % (0.00-10.9); Hematocrit 24.6 VOL% (42.0-52.0); Hemoglobin 9.2 GM/DL (14.0-18.0); Immature Granulocytes % 4.8 %; Immature Granulocytes Absolute 1.13 #; Lymphocytes # 1.1 10*3/uL (1.4-4.0); Lymphocytes % 4.7 % (21.2-54.2); Mean Corpuscular HGB Conc 37.4 GM/DL (32-36); Mean Corpuscular Hemoglobin 31 PG (27-34); Mean Corpuscular Volume 81.5 FL (87-102); Mean Platelet Volume 11.4 FL (9.6-12.0); Monocytes # 1.3 10*3/uL (0.11-0.8); Monocytes % 5.6 % (1.7-12.7); Neutrophils # 19.8 10*3/uL (1.4-7.4); Neutrophils % 84.6 % (38.7-73.9); Platelet Count 201 T/CUMM (130-400); Red Blood Count 3.02 MC/CUMM (3.8-5.5); Red Cell Distribution Width 15.3 % (9.3-17.3); White Blood Count 23.4 T/CUMM (4-12)
[2017-02-11] MEDS: BACITRACIN/POLYMYXIN OINT 14.17 GM TUBE TOP SCH ×3 (05:36→21:51)
[2017-02-11 05:45] LABS: Band Neutrophils 4 % (0-10); Giant Platelets Few; Hypochromasia 1+; Lymphocytes 3 % (20-55); Microcytosis Slight; Ovalocytes Slight; Platelet Estimate Normal; Segmented Neutrophils 89 % (50-85); Total Cells Counted 100
[2017-02-11 06:02] LABS: Magnesium 2.1 MG/DL (1.8-2.4); Osmolality,Calculated 298.7 MOS/KG (273-304); Potassium 4.3 MMOL/L (3.5-5.1)
--- NOTE | 2017-02-11 07:58 | Pulmonology Progress Note ---
Pulmonary - PN: Subj Interval history: Patient is a 61-year-old black man that has an ischemic cardiomyopathy and has an ejection fraction of about 10-15%. He came in with respiratory distress and heart failure and had to be intubated. He also has worsening chronic renal insufficiency. He has been treated for cardiogenic shock with pressors. He has had worsening renal function over the weekend. His creatinine has gone up to 6.2. His urine output may be just a little bit better. His weight is up about 9 kg. His chest x-ray looks about the same. His oxygenation is very good. He is getting a dialysis catheter this morning. Exam (Progress Note) - Constitutional Vitals: Period Temp Pulse Resp BP Sys/Shook Pulse Ox Last 24 Hr 97.4 F-97.6 F 105-135 12-27 90-125/44-99 93-100 Exam: General appearance: no acute distress (Patient is comfortable on the ventilator at present. He does respond. He does get some sedation.), over weight - Head Head exam: Present: normal inspection, normocephalic - Eye Eye exam: Present: EOMI. Absent: scleral icterus - ENT ENT exam: Present: other (ET tube is in good position.) - Neck Neck exam: Present: normal inspection, lymphadenopathy. Absent: thyromegaly - Respiratory Respiratory exam: Present: He has good breath sounds bilaterally and is moving air reasonably well. He does not have any wheezing. - Cardiovascular Cardiovascular exam: Present: gallop, regular rate and rhythm, systolic murmur - GI/Abdominal GI/Abdominal exam: Present: distended, hypoactive bowel sounds, tenderness, soft. He does have some ascites. absent: organomegaly - Extremities Exam Extremities exam: He does have worsening edema of the extremities. - Neurological Exam Neurological exam: Present: alert, he will respond. - Psychiatric Psychiatric exam: Present: normal mood, depressed Results - Labs CBC & BMP: 02/11/17 04:00 02/11/17 04:00 Labs: His PO2 is 156 with a PCO2 25 and a pH of 7.5 - Diagnostic Findings Procedure: Chest x-ray: image reviewed by me, report reviewed by me (Chest x- ray shows cardiomegaly but not much CHF.) Assessment and Plan (1) Diabetes Status: Chronic Assessment and plan: His glucoses will be monitored. Glucose is 159 this morning. Current Visit: Yes Qualifiers: Diabetes mellitus type: type 2 Chronic kidney disease stage: stage 4 ( severe) (2) Ischemic cardiomyopathy Status: Chronic Assessment and plan: The patient apparently has a very reduced ejection fraction and is now on the ventilator. He is on pressors and has a fairly stable blood pressure. His oxygenation is okay so far. Current Visit: Yes (3) Renal insufficiency Status: Acute Assessment and plan: The patient's creatinine is getting worse now is up to 6.2. He is getting a dialysis catheter placed today. Current Visit: Yes (4) Obstructive sleep apnea Status: Acute Assessment and plan: It is unclear how much treatment he has had for obstructive sleep apnea. He is on the ventilator now. Current Visit: No (5) Acute respiratory failure Status: Acute Assessment and plan: The patient had to be intubated today because he was quite lethargic and short of breath. He does have a severe cardiomyopathy. He basically has cardiogenic shock at the present time. He is still on low-dose Levophed and dobutamine. He appears to be a little more hemodynamically stable. He will likely require dialysis however. Current Visit: Yes Qualifiers: Respiratory failure complication: unspecified whether with hypoxia or hypercapnia Qualified Code(s): J96.00 - Acute respiratory failure, unspecified whether with hypoxia or hypercapnia (6) Atrial fibrillation with RVR Status: Acute Assessment and plan: Patient is having rapid atrial fibrillation and is on amiodarone now. Current Visit: Yes
--- NOTE | 2017-02-11 08:43 | XRay Report ---
Portable chest Date: 02/11/2017 Clinical history: Central line and dialysis catheter Comparison: 02/11/2017 Technique: Portable AP sitting chest Findings: Stable cardiomegaly with prior median sternotomy. The endotracheal tube and nasogastric tube are stable position. Insertion of right IJ venous dialysis catheter with tip in right atrium. Insertion of left IJ CVP line with tip in right atrium. No pneumothorax. Fairly stable parenchymal findings especially at the lung bases with small left pleural effusion. Impression: No evidence of pneumothorax following insertion of right IJ venous dialysis catheter and left IJ CVP line. The tips project in the right atrium. The endotracheal tube and nasogastric tube remain in satisfactory position with persistent cardiomegaly and residual atelectasis/infiltration/edema at the lung bases with small left pleural effusion. PROCEDURE INTERPRETED AT [facility] DEPARTMENT OF RADIOLOGY Final Report Signed by: Dr. Elisabet Fry
--- NOTE | 2017-02-11 08:51 | XRay Report ---
History: Patient on ventilator Date: 02/11/2017 Study: Chest x-ray AP portable Comparison exam: 02/10/2017 The endotracheal and nasogastric tubes remain in satisfactory position. There is continued cardiomegaly. The mediastinal contours are unchanged in this patient status post prior median sternotomy. The pulmonary vasculature is upper normal. There is continued left greater than right bibasilar atelectasis/infiltrate without interval worsening. There is no new or worsening infiltrate. There is no increasing pleural effusion. Osseous structures are similar. Impression: No gross change from the previous study PROCEDURE INTERPRETED AT [facility] DEPARTMENT OF RADIOLOGY Final Report Signed by: Dr. Jennifer Medrano
--- NOTE | 2017-02-11 09:07 | XRay Report ---
History: Suspect ileus. Abdominal distention Date: 02/11/2017 Study: Flat and erect abdomen Comparison exam: February 07, 2017 The nasogastric tube is positioned with its tip overlying the proximal stomach level. There is continued mild gaseous distention of bowel over the central abdomen, though this is improved. There is decreased fine detail because of patient size and technique. Degenerative changes of the spine are present. Surgical hardware is noted at the lumbosacral junction. Impression: Improving ileus compared to the previous study PROCEDURE INTERPRETED AT [facility] DEPARTMENT OF RADIOLOGY Final Report Signed by: Dr. Jennifer Medrano
--- NOTE | 2017-02-11 09:29 | General Surgery Progress Note ---
Assessment and Plan (1) Lower extremity edema Status: Acute Assessment and plan: Continue elevating right leg. No operative intervention is recommended at this time. Current Visit: Yes (2) Abdominal bloating Status: Acute Assessment and plan: No operative pathology Current Visit: No (3) Acute on chronic renal failure Status: Acute Assessment and plan: I have been asked to place a dialysis catheter and a central line in this patient. Consent was obtained from family. This will be done today. Current Visit: Yes Subjective Patient reports: Present: afebrile Exam - Constitutional Vitals: Period Temp Pulse Resp BP Sys/Shook Pulse Ox Last 24 Hr 97.4 F-97.6 F 105-135 14-27 90-125/44-99 93-100 General appearance: no acute distress, over weight - Head Head exam: Present: normal inspection - ENT ENT exam: Present: normal exam Mouth exam: Present: normal external inspection - Neck Neck exam: Present: normal inspection, trachea midline - Respiratory Respiratory exam: Absent: accessory muscle use, prolonged expiratory phase - Cardiovascular Cardiovascular exam: Present: RRR. Absent: irregular rhythm - GI/Abdominal GI/Abdominal exam: Present: ascites, soft - Extremities Exam Extremities exam: Present: other (right lower extremity is unchanged from yesterday) - Neurological Exam Neurological exam: Present: alert - Skin Skin exam: Present: normal color, warm Results - Labs CBC & BMP: 02/11/17 04:00 02/11/17 04:00 Quality Measures - VTE Deep Vein Thrombosis/Pulmonary Embolism Present on Admission: No
--- NOTE | 2017-02-11 09:33 | Operative Note ---
Date of procedure: 02/11/17 Pre-op diagnosis: Renal failure and need for central venous access Post-op diagnosis: same Procedure: Preoperative diagnosis 1. Renal failure 2. Need for central venous access with inadequate peripheral IVs Postoperative diagnosis Same Procedures performed 1. Right internal jugular vein dialysis catheter placement 2. Ultrasound guidance and interpretation of images 3. Left internal jugular vein triple-lumen central line placement 4. Ultrasound guidance and interpretation of images Findings The right internal jugular vein was compressible and was accessed on first stick with venous nonpulsatile blood return under ultrasound guidance. A dialysis catheter was placed. Left internal jugular vein was also compressible was accessed on first stick with nonpulsatile venous blood return. A triple- lumen catheter was placed. Complications None apparent Specimen None Anesthesia Local anesthetic 1% lidocaine 20 cc total Blood loss Minimal Indications Renal failure with need for central venous access with inadequate peripheral IVs. Family was contacted to obtain consent Description of procedure The patient was placed in the supine position in his ICU bed in Trendelenburg was performed. The bilateral necks were prepped with chlorhexidine and draped sterilely. Sterile barrier precautions were used. The right internal jugular vein was assessed with ultrasound and it was compressible and very distended. Local anesthetic was administered under ultrasound guidance. The vein was accessed on first stick with nonpulsatile venous blood return. A wire was passed easily into the venous system. The needle was removed and an incision was made alongside the wire with an 11 blade scalpel. A dilator was then placed. The dialysis catheter was placed over the wire without significant difficulty. It was sewn in place with 3-0 silk suture. Sterile dressings were applied. All 3 lm returned blood easily and flushed with heparin. The left internal jugular vein was then evaluated and was also compressible. Local anesthetic was administered. The vein was accessed on first stick with nonpulsatile venous blood return. A wire was passed easily through needle and the needle was removed. The incision was made alongside the wire and a dilator was placed over the wire. A triple-lumen catheter was placed over the wire without difficulty. The wire was removed. The triple-lumen catheter was sewn in place with a 3-0 silk suture. Sterile dressing was applied. All 3 of the lumen returned blood easily and the catheter was flushed with saline. Sterile dressings were applied to both and an x-ray was ordered. Postoperative plan Chest x-ray Implants: dialysis catheter triple lumen catheter Anesthesia: local Surgeon / Physician: Andreas Jeffers Estimated blood loss: minimal Condition: critical Disposition: no change Results - Labs CBC & BMP: 02/11/17 04:00 02/11/17 04:00 Discharge Plan - Discharge Medications No Action Insulin Lispro Prot/Lisp 75/25 [HumaLOG Mix 75/25] 25 units SUBCUT QAM Aspirin [Ecotrin] 81 mg PO DAILY Multivitamin [Multivitamins] 1 each PO DAILY amLODIPine [Norvasc] 10 mg PO DAILY HYDROcodone/ACETAMIN 10-325 [[place] 10-325] 1 tablet PO Q6H Atorvastatin [Lipitor] 10 mg PO BEDTIME Insulin Lispro Prot/Lisp 75/25 [HumaLOG Mix 75/25] 10 units SUBCUT QPM Losartan [Cozaar] 25 mg PO BID #60 tablet Acetaminophen Tab [Tylenol Tab] 325 mg PO BID #14 tablet Pantoprazole Tab [Protonix Tab] 40 mg PO BID@0700,1900 #60 tablet traMADol TAB [Ultram] 50 mg PO BID #14 tablet Gabapentin Cap/Tab [Neurontin Cap/Tab] 100 mg PO TID #21 capsule Furosemide Tab [Lasix Tab] 80 mg PO DAILY #30 tablet - Follow Up or Referral - Forms/Instructions
[2017-02-11 09:49] LABS: Albumin 1.4 G/DL (3.4-5.0); Bilirubin,Direct 4.2 MG/DL (0.0-0.20); Bilirubin,Indirect 0.5 MG/DL (0.0-1.0); Bilirubin,Total 4.7 MG/DL (0.2-1.0); Total Protein 6.1 G/DL (6.4-8.3)
[2017-02-11] MEDS: PANTOPRAZOLE 40 MG VIAL IV SCH ×2 (09:50→21:50)
[2017-02-11] MEDS: AMIODARONE 200 MG TABLET NG SCH ×2 (09:54→21:50)
[2017-02-11] MEDS: GABAPENTIN 100 MG CAPSULE PO SCH ×3 (09:54→21:50)
[2017-02-11] MEDS: ASPIRIN CHEW 81 MG TABLET PO SCH (09:54)
[2017-02-11] MEDS: PROPOFOL 1,000 MG/100 ML BOTTLE IV SCH ×2 (10:01→22:29)
[2017-02-11] MEDS: ENOXAPARIN 30 MG/0.3 ML SYRINGE SUBCUT SCH (10:15)
--- NOTE | 2017-02-11 10:33 | Hospitalist Progress Note ---
Assessment and Plan (1) Acute on chronic renal failure Status: Acute Assessment and plan: Initiation of HD today Current Visit: Yes (2) Acute respiratory failure Status: Acute Assessment and plan: Being managed by pulmonary Current Visit: Yes Qualifiers: Respiratory failure complication: unspecified whether with hypoxia or hypercapnia Qualified Code(s): J96.00 - Acute respiratory failure, unspecified whether with hypoxia or hypercapnia (3) Ileus, unspecified Status: Acute Assessment and plan: Improving on KUB this morning Current Visit: Yes (4) Paraphimosis Status: Acute Current Visit: Yes (5) Open wounds involving multiple regions of lower extremity without complication Problem details: Open blisters from gross anasarca Status: Acute Current Visit: Yes (6) Ischemic cardiomyopathy Status: Chronic Assessment and plan: Cardiology managing Current Visit: Yes Hospitalist: Subjective Interval history: No acute events overnight. From review of charts, it is noted that patient has had an extended abdomen since admission. It is also noted on imaging that he had an ileus which according to imaging today is improving. Also with ascites. He was started on Reglan overnight with some improvement in his residuals this morning. If this problem returns will consider NPO status for bowel rest as well as a GI consult. Exam - Constitutional Vitals: Period Temp Pulse Resp BP Sys/Shook Pulse Ox Last 24 Hr 97.4 F-97.6 F 105-135 14-27 90-125/44-99 93-100 General appearance: over weight, other (sedated, et tube in place) - Head Head exam: Present: normocephalic, atraumatic - Eye Eye exam: Present: EOMI Pupils: Present: DEANA - ENT ENT exam: Present: normal exam - Neck Neck exam: Present: normal inspection - Respiratory Respiratory exam: Present: clear to auscultation bilaterally. Absent: rhonchi, wheezes - Cardiovascular Cardiovascular exam: Present: regular rate and rhythm - GI/Abdominal GI/Abdominal exam: Present: normal bowel sounds, soft. Absent: tenderness, rebound - Extremities Exam Extremities exam: Present: normal inspection - Back Exam Back exam: Present: normal inspection - Neurological Exam Neurological exam: Present: other (sedated) - Psychiatric Psychiatric exam: Absent: agitated, anxious - Skin Skin exam: Present: warm, intact Results - Labs CBC & BMP: 02/11/17 04:00 02/11/17 04:00 Quality Measures - VTE Deep Vein Thrombosis/Pulmonary Embolism Present on Admission: No
--- NOTE | 2017-02-11 10:45 | Cardiology Progress Note ---
Mehrdad Cline Lesley, JOANNA, am scribing for, and in the presence of, Devyn Thurston MD 10:45. Assessment and Plan - Time spent with patient Time spent with patient: Greater than 30 minutes (Assessment documentation) (1) Lower extremity edema Status: Acute Assessment and plan: Continue wound care to RLE, no sign of infection, Venous Dopplers negative for DVT Current Visit: Yes (2) Abdominal bloating Status: Acute Assessment and plan: Likely ileus? NGT intact without output, abdomen distended but soft, bowel sounds present but distant, consult copy camera operator for assistance with tube feedings Current Visit: No (3) History of coronary artery bypass graft Status: Chronic Assessment and plan: SEE PLAN LISTED BELOW Current Visit: No (4) Hyperlipidemia Status: Chronic Assessment and plan: SEE PLAN LISTED BELOW Current Visit: No Qualifiers: Hyperlipidemia type: other hyperlipidemia Qualified Code(s): E78.4 - Other hyperlipidemia (5) Ischemic cardiomyopathy Status: Chronic Assessment and plan: Dobutamine drip at 5mcg/min Current Visit: Yes (6) Troponin level elevated Status: Chronic Current Visit: No (7) Congestive heart failure Status: Chronic Assessment and plan: NYHA Class IV, not a candidate for defibrillator therapy Current Visit: Yes Qualifiers: Congestive heart failure type: combined Congestive heart failure chronicity : acute on chronic Qualified Code(s): I50.43 - Acute on chronic combined systolic (congestive) and diastolic (congestive) heart failure (8) Renal failure Status: Acute Assessment and plan: SEE PLAN LISTED BELOW Current Visit: Yes Qualifiers: Renal failure chronicity: acute on chronic (9) Acute respiratory failure Status: Acute Assessment and plan: SEE PLAN LISTED BELOW Current Visit: Yes Qualifiers: Respiratory failure complication: unspecified whether with hypoxia or hypercapnia Qualified Code(s): J96.00 - Acute respiratory failure, unspecified whether with hypoxia or hypercapnia Cardiology - PN: Subj Interval history: PUMP OILER: Dr. Campa The patient was seen in ICU. He remains intubated. He is on a Dobutamine infusion mcg/min. The patient remains afebrile. He is intubated and sedated in the intensive care unit though nursing reports that patient awakens and follows simple commands when his sedation is lightened. His right leg has progressed over the weekend. A second venous Doppler was negative for DVT, and surgery did evaluate the leg, however it was not thought to be the source of his infection. Abdominal and pelvic CT done over the weekend revealed ascites with no obvious bowel obstruction. Chest x-ray shows progressive pulmonary edema with small left pleural effusion. Vital signs noted, the patient continues to require vasopressors. Atrial fibrillation noted on telemetry. Overall, his creatinine has worsened (5.7), his weight is up 3 pounds with minimal urine output, and he has not been able to tolerate CPAP trials. Leukocytosis continues at 23,000, antibiotics are Levaquin and clindamycin. His prognosis remains poor. FEBRUARY 10, 2017: Patient is no longer requiring pressors, he remains intubated, awake, follows simple commands. H&H remained stable at 925, WBCs noted at 24, 000. Sodium 130, potassium 4.4, creatinine elevated to 6.1, BUN 109. Hepatitis panel negative EKG reveals Afib, rate in the 110-120 range. The patient is tolerating tube feedings well. Nephrology making preparations for hemodialysis. The right lower extremity is edematous with skin sloughing noted. IMPRESSION AND PLAN: 1. CONGESTIVE HEART FAILURE -weight increasing, renal failure, preparing for HD. 2. RENAL FAILURE -progress, preparing for hemodialysis. 3. HYPERLIPIDEMIA -chronic continue meds. 4. ISCHEMIC CARDIOMYOPATHY -dobutamine infusion, continue support. 5. ABDOMINAL BLOATING -abdominal CT negative, NG tube, tolerating tube feeding 6. RESPIRATORY FAILURE -intubated, tolerating weaning trials. 7. RIGHT LOWER EXTREMITY EDEMA -skin sloughing noted, keeping elevated, DVT ruled out. Exam (Progress Note) - Constitutional Vitals: Period Temp Pulse Resp BP Sys/Shook Pulse Ox Last 24 Hr 97.6 F-98.1 F 96-128 12-30 75-115/40-98 93-99 Exam: General: Intubated, in bed with 2 point restraint appears comfortable. HEENT: Pupils pinpoint bilaterally, normocephalic, atraumatic]. Mucous membranes moist. No jaundice noted. Conjunctiva moist and clear, sclerae anicteric. Neck: No JVD/HJR, no thyromegaly or lymphadenopathy noted.] Cardiac: Irregularly irregular rate and rhythm. No murmur rub or gallop. Lungs: rhonchi noted to bilateral bases, orotracheal tube in place] Abdomen: bowel sounds normoactive.] Abdomen distended, NG tube in place. No abdominal bruit or thrill noted. No masses noted. Musculoskeletal: Right leg with open blisters from medial thigh to calf, progressively worsened. Decreased range of motion is noted to all extremities Extremities: No clubbing, cyanosis noted. Edema noted to bilateral lower extremities. Upper extremity pulses 2+. Lower extremity pulses 2+. Capillary refill less than 3 seconds. Skin: ] Skin sloughing noted throughout right lower leg, weeping Neuro: Awake, follows simple commands, intubated] ] No essential tremor is appreciated. Result/EKG - Labs CBC & BMP: 02/11/17 04:00 02/11/17 04:00 Lab Results: I have reviewed the past 24 hour labs Labs: Laboratory Results - last 24 hr 02/09/17 02/09/17 02/10/17 17:43 23:25 04:30 WBC RBC Hgb Hct MCV MCH MCHC RDW Plt Count MPV Neut % (Auto) Lymph % (Auto) [place] % (Auto) Eos % (Auto) Baso % (Auto) Neut # (Auto) Lymph # (Auto) [place] # (Auto) Eos # (Auto) Baso # (Auto) Total Counted Immature Gran % Nucleated RBC % Immature Gran # Segmented Neutrophils Band Neutrophils Lymphocytes Monocytes Nucleated RBCs Nucleated RBCs # Platelet Estimate Immature Plt Fraction Hypochromasia Microcytosis Target Cells Morphology Comment ABG pH ABG pCO2 ABG pO2 ABG HCO3 ABG Total CO2 ABG O2 Saturation ABG Base Excess Sodium Potassium Chloride Carbon Dioxide Anion Gap BUN Creatinine GFR Calculation BUN/Creatinine Ratio Glucose POC Glucose 94 105 Calculated Osmolality Calcium Phosphorus 6.2 H Magnesium 2.0 Prealbumin 3.8 L Hepatitis A IgM Ab Hep Bs Antigen Hep B Core IgM Ab Hepatitis C Antibody 02/10/17 02/10/17 02/10/17 04:30 04:54 05:44 WBC RBC Hgb Hct MCV MCH MCHC RDW Plt Count MPV Neut % (Auto) Lymph % (Auto) [place] % (Auto) Eos % (Auto) Baso % (Auto) Neut # (Auto) Lymph # (Auto) [place] # (Auto) Eos # (Auto) Baso # (Auto) Total Counted Immature Gran % Nucleated RBC % Immature Gran # Segmented Neutrophils Band Neutrophils Lymphocytes Monocytes Nucleated RBCs Nucleated RBCs # Platelet Estimate Immature Plt Fraction Hypochromasia Microcytosis Target Cells Morphology Comment ABG pH 7.466 H ABG pCO2 28.9 L ABG pO2 147.0 H ABG HCO3 22.7 ABG Total CO2 19.1 L ABG O2 Saturation 99.0 ABG Base Excess -2.1 Sodium Potassium Chloride Carbon Dioxide Anion Gap BUN Creatinine GFR Calculation BUN/Creatinine Ratio Glucose POC Glucose 135 H Calculated Osmolality Calcium Phosphorus Magnesium Prealbumin Hepatitis A IgM Ab Negative Hep Bs Antigen Negative Hep B Core IgM Ab Negative Hepatitis C Antibody Negative 02/10/17 02/10/17 02/10/17 08:16 08:16 11:16 WBC 24.4 H RBC 3.10 L Hgb 9.1 L Hct 25.7 L MCV 82.9 L MCH 29 MCHC 35.4 RDW 15.6 Plt Count 186 MPV 11.8 Neut % (Auto) 85.8 H Lymph % (Auto) 3.8 L [place] % (Auto) 5.3 Eos % (Auto) 0.1 Baso % (Auto) 0.2 Neut # (Auto) 20.9 H Lymph # (Auto) 0.9 L [place] # (Auto) 1.3 H Eos # (Auto) 0.0 Baso # (Auto) 0.0 Total Counted 100 Immature Gran % 4.8 Nucleated RBC % 0.1 Immature Gran # 1.18 Segmented Neutrophils 85 Band Neutrophils 1 Lymphocytes 7 L Monocytes 7 Nucleated RBCs 2 Nucleated RBCs # 0.02 Platelet Estimate Adequate Immature Plt Fraction 0.0 Hypochromasia 1+ Microcytosis Slight Target Cells Slight Morphology Comment ABG pH ABG pCO2 ABG pO2 ABG HCO3 ABG Total CO2 ABG O2 Saturation ABG Base Excess Sodium 130 L Potassium 4.4 Chloride 96 L Carbon Dioxide 24 Anion Gap 14.4 BUN 109 H Creatinine 6.10 H GFR Calculation 13 BUN/Creatinine Ratio 17.00 Glucose 103 POC Glucose 112 H Calculated Osmolality 293.8 Calcium 6.8 L Phosphorus Magnesium 2.0 Prealbumin Hepatitis A IgM Ab Hep Bs Antigen Hep B Core IgM Ab Hepatitis C Antibody - Diagnostic Findings Procedure: Chest x-ray: report reviewed by me - EKG EKG results: interpreted by me EKG shows: atrial fibrillation Karena Cline Michael, MD, personally performed the services described in this documentation, ascribed by Sheila Cronin NP in my presence, and it is both accurate and complete .
--- NOTE | 2017-02-11 10:59 | Urology Progress Note ---
Urology - PN: Subj Interval history: I was notified Mr. silverman in the ICU by Dr. Fields. 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 He has multiple medical problems and had a Carvalho placed. He has skin breakdown in his lower extremities and at the end of his foreskin. I recommend we remove the Carvalho and perform intermittent catheterization. The [place] with a Carvalho with penile prosthesis is erosion into the prosthesis through the corporal body and I think it is best we take the Carvalho out. Exam - Constitutional Vitals: Period Temp Pulse Resp BP Sys/Shook Pulse Ox Last 24 Hr 97.3 F-97.6 F 105-135 14-27 90-125/39-99 93-100 Results - Labs CBC & BMP: 02/11/17 04:00 02/11/17 04:00
--- NOTE | 2017-02-11 12:05 | Infectious Disease Consult ---
Assessment and Plan (1) Acute on chronic renal failure Status: Acute Assessment and plan: Patient going to be started on dialysis today. Current Visit: Yes (2) Acute respiratory failure Status: Acute Current Visit: Yes Qualifiers: Respiratory failure complication: unspecified whether with hypoxia or hypercapnia Qualified Code(s): J96.00 - Acute respiratory failure, unspecified whether with hypoxia or hypercapnia (3) Leukocytosis Status: Acute Assessment and plan: Could be stress response however I am concerned about healthcare associated infections particularly bloodstream infection since patient has been hospital for over a week. No definite evidence of pneumonia on chest x-ray, need to check for Carvalho associated UTI. Recommendations: 1. Blood cultures 2 sets 2. Urinalysis with reflex culture 3. Start vancomycin; will consult pharmacy to assist with dosing and monitoring. Goal trough level 15-20. I discussed with Dr. Esparza and he is okay with me given vancomycin his renal function unlikely to return. 4. Also start meropenem, renally dosed at 1 g daily. Do not expect an allergic reaction to this is low likelihood of cross reactivity with penicillins. 5. Discontinue clindamycin and levofloxacin Thank you very much for the consult. Will follow. Current Visit: Yes (4) Open wounds involving multiple regions of lower extremity without complication Problem details: Open blisters from gross anasarca Status: Acute Assessment and plan: Extensive blistering to right lower extremity with skin office. 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 He does not seem to have cellulitis of the right lower extremity. Recommendations: Continue local wound care. Patient will be on antibiotics empirically because of his leukocytosis and this should cover the small possibility of cellulitis. Current Visit: Yes (5) Congestive heart failure Status: Chronic Current Visit: Yes Qualifiers: Congestive heart failure type: combined Congestive heart failure chronicity : acute on chronic Qualified Code(s): I50.43 - Acute on chronic combined systolic (congestive) and diastolic (congestive) heart failure (6) Diabetes Status: Chronic Current Visit: Yes Qualifiers: Diabetes mellitus type: type 2 Chronic kidney disease stage: stage 4 ( severe) History of Present Illness Chief complaint: Persistent leukocytosis on antibiotics History of present illness: Mr. Fields is a 61 year old male admitted a week ago with shortness of breath. He rapidly developed respiratory failure requiring intubation and has been on the vent since day 2 of admission. He has end-stage congestive heart failure and respiratory failure was due to pulmonary edema. When the patient came he had generalized edema and abdominal distention however the edema was worse on the right lower extremity and there was a blister to the distal aspect of the leg medially. Since admission he is gone on to develop large bullae over the entire right lower extremity. He had a few smaller blisters to the medial aspect of the left elbow that was felt to be due to a dressing present previously. Patient has been noted to have worsening leukocytosis. He has been on levofloxacin since and clindamycin since the . No cultures done yet. Patient has been oliguric and got dialysis catheter placed today and is about to get his first session of dialysis today. He does have history of chronic renal failure which has progressively worsened since admission. Central line also placed today. He had a left femoral arterial line since admission. Patient has been on vasopressors since admission and is felt he has cardiogenic shock. No fever according to the nurses since admission. Home Medications Medication Instructions Recorded Confirmed Type Aspirin [Ecotrin] 81 mg PO DAILY 09/29/14 02/06/17 History Atorvastatin [Lipitor] 10 mg PO BEDTIME 09/29/14 02/06/17 History HYDROcodone/ACETAMIN 10-325 [[place] 1 tablet PO Q6H 09/29/14 02/06/17 History 10-325] Insulin Lispro Prot/Lisp 75/25 10 units SUBCUT QPM 09/29/14 02/06/17 History [HumaLOG Mix 75/25] Insulin Lispro Prot/Lisp 75/25 25 units SUBCUT QAM 09/29/14 02/06/17 History [HumaLOG Mix 75/25] Multivitamin [Multivitamins] 1 each PO DAILY 09/29/14 02/06/17 History amLODIPine [Norvasc] 10 mg PO DAILY 09/29/14 02/06/17 History Losartan [Cozaar] 25 mg PO BID #60 tablet 10/02/14 02/06/17 Rx Acetaminophen Tab [Tylenol Tab] 325 mg PO BID #14 tablet 09/04/16 02/06/17 Rx Furosemide Tab [Lasix Tab] 80 mg PO DAILY #30 tablet 09/04/16 02/06/17 Rx Gabapentin Cap/Tab [Neurontin 100 mg PO TID #21 capsule 09/04/16 02/06/17 Rx Cap/Tab] Pantoprazole Tab [Protonix Tab] 40 mg PO BID@0700,1900 #60 tablet 09/04/1602/06 Rx traMADol TAB [Ultram] 50 mg PO BID #14 tablet 09/04/16 02/06/17 Rx Allergies Allergy/AdvReac Type Severity Reaction Status Date / Time codeine Allergy RASH Verified 02/04/17 05:35 Penicillins Allergy ITCHING Verified 02/04/17 05:35 morphine AdvReac Hallucinati Verified 02/04/17 05:35 ng ROS unobtainable: due to endotracheal tube Medical,Surgical,& Family Hx - Medical History Cardio: History of: CHF (NYHA IV), CAD, Hypertension, SD, PVD, Cardiovascular Problems (CABG, SD) Psychological: History of: Anxiety Disorders Endocrine: History of: Diabetes Mellitus (IDDM), Dyslipidemia Respiratory: History of: COPD Renal: History of: Renal Failure, Renal Problems (Renal insufficiency) Gastrointestinal: History of: GERD, GI Problems (Esophageal stricture) Musculoskeletal: History of: Back/Neck Problems (Back surgery X 3), Degenerative Disk Disease, Herniated Disk, Musculoskeletal Problems (Arthritis) No history of: Amputation - Surgical History Cardiac Surgeries: Sugical HX of: Cardiac Catheterization, Cardiac Surgery ( CABG in ) Thoracic Surgeries: Patient denies;: Lobectomy Neurologic Surgeries: Patient denies: Neurologic Surgery HEENT Surgeries: Surgical HX of: Eye Surgery Patient denies: Tonsilectomy & Adenoidectomy - Family History Family History: Reports;: Family Diabetes, Family Heart Disease, Family Hypertension, Family Stroke - Social History Smoking Status: Former smoker Frequency of Alcohol Use: Occasionally Type of Drug Use: None Infectious Disease Exam H&P - Constitutional Vitals: Vital Signs Temp Pulse Resp BP Pulse Ox 97.3 F L 118 H 22 90/39 98 02/11/17 08:00 02/11/17 10:00 02/11/17 11:40 02/11/17 10:00 02/11/17 10:00 Intake and Output 02/10/17 02/11/17 02/11/17 23:59 07:59 15:59 Intake Total 1480 / 1480 110 / 110 1180 / 1180 Output Total 225 / 225 389 / 389 55 / 55 Balance 1255 / 1255 -279 / -279 1125 / 1125 Intake: IV 1450 / 1450 50 / 50 1150 / 1150 Cleocin Inj 300 mg In 100 / 100 50 / 50 Premix 1 Each @ 100 mls/ hr IV Q6H ASYA Rx#: [id number] DOBUTamine 500 MG/250 250 / 250 ML500 mg In 250 ml @ 2 MCG/KG/MIN 5.661 mls/hr IV TITRATE ASYA Rx#: [id number] Levaquin Inj 250 mg In 50 / 50 Premix 1 Each @ 50 mls/hr IV Q24H ASYA Rx#: [id number] DIPRIVAN 1,000 mg In 100 100 / 100 ml @ 5 MCG/KG/MIN 3.224 mls/hr IV TITRATE ASYA Rx# :[id number] Sodium Bicarb Inj 50 Meq/ 1050 / 1050 1050 / 1050 50 ml In Ns 1,000 ml @ 100 mls/hr IV .[id number] ASYA Rx#:[id number] Tube Feeding Flush 30 / 30 60 / 60 30 / 30 Output: Urine 225 / 225 389 / 389 55 / 55 Other: Tube Feeding 45 25 25 Voiding Method Indwelling Catheter Indwelling Catheter Indwelling Catheter # Bowel Movements 1 Weight 109.27 kg Patient Weight 02/11/17 23:59 Weight 109.27 kg Exam: General: Patient relatively comfortable on the vent, easily arousable and able to follow simple commands, nods appropriately to questions HEENT: Mucous membranes pink and moist, anicteric acyanotic, DEANA, ET tube in situ Neck: Supple, no thyroid gland enlargement, no lymphadenopathy Respiratory system: Breath sounds vesicular, no crepitations or wheezes heard Cardiovascular: Normal S1 and S2, no murmurs appreciated Abdomen: Normal bowel sounds, distended, nontender throughout, no organomegaly or mass appreciated Genitourinary: No suprapubic pain or bladder distention, edema of scrotum and penis. There is some ulceration of the foreskin. Clear urine from Carvalho catheter Extremities: Severe bilateral lower extremity edema worse on right than left. He has extensive blistering of the right lower extremity with large areas where skin has been lost. The removed blisters noted to medial aspect of left elbow Skin: Blistering as noted above Reports - Labs CBC & BMP: 02/11/17 04:00 02/11/17 04:00 Labs: Laboratory Results - last 24 hr 02/10/17 02/10/17 02/11/17 11:16 17:29 00:05 WBC RBC Hgb Hct MCV MCH MCHC RDW Plt Count MPV Neut % (Auto) Lymph % (Auto) [place] % (Auto) Eos % (Auto) Baso % (Auto) Neut # (Auto) Lymph # (Auto) [place] # (Auto) Eos # (Auto) Baso # (Auto) Total Counted Immature Gran % Nucleated RBC % Immature Gran # Segmented Neutrophils Band Neutrophils Lymphocytes Monocytes Nucleated RBCs # Platelet Estimate Giant Platelets Immature Plt Fraction Hypochromasia Microcytosis Ovalocytes ABG pH ABG pCO2 ABG pO2 ABG HCO3 ABG Total CO2 ABG O2 Saturation ABG Base Excess Sodium Potassium Chloride Carbon Dioxide Anion Gap BUN Creatinine GFR Calculation BUN/Creatinine Ratio Glucose POC Glucose 112 H 126 H 141 H Calculated Osmolality Calcium Magnesium Total Bilirubin Direct Bilirubin Indirect Bilirubin AST ALT Alkaline Phosphatase Total Protein Albumin 02/11/17 02/11/17 02/11/17 04:00 04:00 04:38 WBC 23.4 H RBC 3.02 L Hgb 9.2 L Hct 24.6 L MCV 81.5 L MCH 31 MCHC 37.4 H RDW 15.3 Plt Count 201 MPV 11.4 Neut % (Auto) 84.6 H Lymph % (Auto) 4.[address] [place] % (Auto) 5.6 Eos % (Auto) 0.2 Baso % (Auto) 0.1 Neut # (Auto) 19.8 H Lymph # (Auto) 1.[address] [place] # (Auto) 1.3 H Eos # (Auto) 0.1 Baso # (Auto) 0.0 Total Counted 100 Immature Gran % 4.8 Nucleated RBC % 0.0 Immature Gran # 1.13 Segmented Neutrophils 89 H Band Neutrophils 4 Lymphocytes 3 L Monocytes 4 Nucleated RBCs # 0.00 Platelet Estimate Normal Giant Platelets Few Immature Plt Fraction 0.0 Hypochromasia 1+ Microcytosis Slight Ovalocytes Slight ABG pH 7.504 H ABG pCO2 25.8 L ABG pO2 156.0 H ABG HCO3 19.8 L ABG Total CO2 20.6 L ABG O2 Saturation 98.8 ABG Base Excess -2.3 Sodium 131 L Potassium 4.3 Chloride 97 L Carbon Dioxide 21 Anion Gap 17.3 H BUN 108 H Creatinine 6.20 H GFR Calculation 13 BUN/Creatinine Ratio 17.00 Glucose 151 H POC Glucose Calculated Osmolality 298.7 Calcium 7.0 L Magnesium 2.1 Total Bilirubin Direct Bilirubin Indirect Bilirubin AST ALT Alkaline Phosphatase Total Protein Albumin 02/11/17 02/11/17 02/11/17 06:05 09:00 11:16 WBC RBC Hgb Hct MCV MCH MCHC RDW Plt Count MPV Neut % (Auto) Lymph % (Auto) [place] % (Auto) Eos % (Auto) Baso % (Auto) Neut # (Auto) Lymph # (Auto) [place] # (Auto) Eos # (Auto) Baso # (Auto) Total Counted Immature Gran % Nucleated RBC % Immature Gran # Segmented Neutrophils Band Neutrophils Lymphocytes Monocytes Nucleated RBCs # Platelet Estimate Giant Platelets Immature Plt Fraction Hypochromasia Microcytosis Ovalocytes ABG pH ABG pCO2 ABG pO2 ABG HCO3 ABG Total CO2 ABG O2 Saturation ABG Base Excess Sodium Potassium Chloride Carbon Dioxide Anion Gap BUN Creatinine GFR Calculation BUN/Creatinine Ratio Glucose POC Glucose 159 H 159 H Calculated Osmolality Calcium Magnesium Total Bilirubin 4.70 H Direct Bilirubin 4.200 H Indirect Bilirubin 0.5 AST 112 H ALT 49 Alkaline Phosphatase 189 H Total Protein 6.1 L Albumin 1.4 L - Reports Microbiology: No cultures sent off since this admission - Diagnostic Findings Procedure: Chest x-ray: image reviewed by me, report reviewed by me (No definite consolidation appreciated)
[2017-02-11] MEDS: DOBUTamine 500 MG/250 ML PREMIX IV SCH ×2 (12:12→14:39)
[2017-02-11] MEDS: SILVER SULFADIAZINE 1% CREAM 25 GM TUBE TOP SCH (12:19)
--- NOTE | 2017-02-11 13:25 | Cardiology Progress Note ---
Mehrdad Cline Lesley, JOANNA, am scribing for, and in the presence of, Devyn Thurston MD 13:24. Assessment and Plan - Time spent with patient Time spent with patient: Greater than 30 minutes (Record review, assessment and documentation) (1) Lower extremity edema Status: Acute Assessment and plan: Continue wound care to RLE, no sign of infection, Venous Dopplers negative for DVT Current Visit: Yes (2) Abdominal bloating Status: Acute Assessment and plan: Likely ileus? NGT intact without output, abdomen distended but soft, bowel sounds present but distant, consult audio/video technician for assistance with tube feedings Current Visit: No (3) History of coronary artery bypass graft Status: Chronic Assessment and plan: SEE PLAN LISTED BELOW Current Visit: No (4) Hyperlipidemia Status: Chronic Assessment and plan: SEE PLAN LISTED BELOW Current Visit: No Qualifiers: Hyperlipidemia type: other hyperlipidemia Qualified Code(s): E78.4 - Other hyperlipidemia (5) Ischemic cardiomyopathy Status: Chronic Assessment and plan: Dobutamine drip at 5mcg/min Current Visit: Yes (6) Troponin level elevated Status: Chronic Current Visit: No (7) Congestive heart failure Status: Chronic Assessment and plan: NYHA Class IV, not a candidate for defibrillator therapy Current Visit: Yes Qualifiers: Congestive heart failure type: combined Congestive heart failure chronicity : acute on chronic Qualified Code(s): I50.43 - Acute on chronic combined systolic (congestive) and diastolic (congestive) heart failure (8) Renal failure Status: Acute Assessment and plan: SEE PLAN LISTED BELOW Current Visit: Yes Qualifiers: Renal failure chronicity: acute on chronic (9) Acute respiratory failure Status: Acute Assessment and plan: SEE PLAN LISTED BELOW Current Visit: Yes Qualifiers: Respiratory failure complication: unspecified whether with hypoxia or hypercapnia Qualified Code(s): J96.00 - Acute respiratory failure, unspecified whether with hypoxia or hypercapnia (10) Leukocytosis Status: Acute Assessment and plan: SEE PLAN LISTED BELOW Current Visit: Yes Cardiology - PN: Subj Interval history: [employer] MECH[employer]IC: Dr. Campa The patient was seen in ICU. He remains intubated. He is on a Dobutamine infusion at 5 mcg/min. The patient remains afebrile. He is intubated and sedated in the intensive care unit though nursing reports that patient awakens and follows simple commands when his sedation is lightened. His right leg has progressed over the weekend. A second venous Doppler was negative for DVT, and surgery did evaluate the leg, however it was not thought to be the source of his infection. Abdominal and pelvic CT done over the weekend revealed ascites with no obvious bowel obstruction. Chest x-ray shows progressive pulmonary edema with small left pleural effusion. Vital signs noted, the patient continues to require vasopressors. Atrial fibrillation noted on telemetry. Overall, his creatinine has worsened (5.7), his weight is up 3 pounds with minimal urine output, and he has not been able to tolerate CPAP trials. Leukocytosis continues at 23,000, antibiotics are Levaquin and clindamycin. His prognosis remains poor. FEBRUARY 10, 2017: Patient is no longer requiring pressors, he remains intubated, awake, follows simple commands. H&H remained stable at 9 & 25, WBCs noted at 24 ,000. Sodium 130, potassium 4.4, creatinine elevated to 6.1, BUN 109. Hepatitis panel negative. EKG reveals Afib, rate in the 110-120 range. The patient is tolerating tube feedings well. Nephrology making preparations for hemodialysis. The right lower extremity is edematous with skin sloughing noted. FEBRUARY 11, 2017: Patient is seen in ICU, remains intubated and ventilated. Patient is being sedated with Ativan. Appreciate hospitalist help. We will plan to consult infectious disease for persistent leukocytosis. Reglan started due to patient not tolerating tube feedings. Hemodialysis catheter placed, and plan to initiate HD today. The patient remains in Afib with rate controlled on oral Amiodarone. Continue Dobutamine infusion for end stage heart failure. IMPRESSION AND PLAN: 1. CONGESTIVE HEART FAILURE -end stage, weight increasing, renal failure, preparing for HD. 2. RENAL FAILURE -progressed, hemodialysis planned for today. 3. HYPERLIPIDEMIA -chronic, continue meds. 4. ISCHEMIC CARDIOMYOPATHY -continue dobutamine infusion, continue to hold antihypertensives for labile BP. 5. ABDOMINAL BLOATING -abdominal CT negative, NG tube, tolerating tube feeding 6. RESPIRATORY FAILURE - intubated, Pulmonary consulted and managing. 7. RIGHT LOWER EXTREMITY EDEMA - wound care consulted, skin sloughing noted, keeping elevated, DVT ruled out. 8. LEUKOCYTOSIS -persistent despite antibiotic coverage, consult infectious disease. Exam (Progress Note) - Constitutional Vitals: Period Temp Pulse Resp BP Sys/Shook Pulse Ox Last 24 Hr 97.3 F-97.6 F 105-135 14-27 90-125/39-99 93-100 Exam: General: Intubated, in bed with 2 point restraint appears comfortable. HEENT: Pupils pinpoint bilaterally, normocephalic, atraumatic]. Mucous membranes moist. No jaundice noted. Conjunctiva moist and clear, sclerae anicteric. Neck: No JVD/HJR, no thyromegaly or lymphadenopathy noted.] Cardiac: Irregularly irregular rate and rhythm. Murmur present, rub or gallop absent. Lungs: Ventilated, essentially clear noted to bilateral bases, orotracheal tube in place] Abdomen: bowel sounds distant but normoactive.] Abdomen distended, NG tube in place. No abdominal bruit or thrill noted. No masses noted. Musculoskeletal: Right leg with open blisters from medial thigh to calf, progressively worsened. Decreased range of motion is noted to all extremities Extremities: No clubbing, cyanosis noted. Edema noted to bilateral lower extremities. Upper extremity pulses 2+. Lower extremity pulses 2+. Capillary refill less than 3 seconds. Skin: ] Skin sloughing noted throughout right lower leg, weeping Neuro: Awake, follows simple commands, intubated] ] No essential tremor is appreciated. Result/EKG - Labs CBC & BMP: 02/11/17 04:00 02/11/17 04:00 Lab Results: I have reviewed the past 24 hour labs Labs: Laboratory Results - last 24 hr 02/10/17 02/10/17 02/11/17 11:16 17:29 00:05 WBC RBC Hgb Hct MCV MCH MCHC RDW Plt Count MPV Neut % (Auto) Lymph % (Auto) [place] % (Auto) Eos % (Auto) Baso % (Auto) Neut # (Auto) Lymph # (Auto) [place] # (Auto) Eos # (Auto) Baso # (Auto) Total Counted Immature Gran % Nucleated RBC % Immature Gran # Segmented Neutrophils Band Neutrophils Lymphocytes Monocytes Nucleated RBCs # Platelet Estimate Giant Platelets Immature Plt Fraction Hypochromasia Microcytosis Ovalocytes ABG pH ABG pCO2 ABG pO2 ABG HCO3 ABG Total CO2 ABG O2 Saturation ABG Base Excess Sodium Potassium Chloride Carbon Dioxide Anion Gap BUN Creatinine GFR Calculation BUN/Creatinine Ratio Glucose POC Glucose 112 H 126 H 141 H Calculated Osmolality Calcium Magnesium Total Bilirubin Direct Bilirubin Indirect Bilirubin AST ALT Alkaline Phosphatase Total Protein Albumin 02/11/17 02/11/17 02/11/17 04:00 04:00 04:38 WBC 23.4 H RBC 3.02 L Hgb 9.2 L Hct 24.6 L MCV 81.5 L MCH 31 MCHC 37.4 H RDW 15.3 Plt Count 201 MPV 11.4 Neut % (Auto) 84.6 H Lymph % (Auto) 4.7 L [place] % (Auto) 5.6 Eos % (Auto) 0.2 Baso % (Auto) 0.1 Neut # (Auto) 19.8 H Lymph # (Auto) 1.1 L [place] # (Auto) 1.3 H Eos # (Auto) 0.1 Baso # (Auto) 0.0 Total Counted 100 Immature Gran % 4.8 Nucleated RBC % 0.0 Immature Gran # 1.13 Segmented Neutrophils 89 H Band Neutrophils 4 Lymphocytes 3 L Monocytes 4 Nucleated RBCs # 0.00 Platelet Estimate Normal Giant Platelets Few Immature Plt Fraction 0.0 Hypochromasia 1+ Microcytosis Slight Ovalocytes Slight ABG pH 7.504 H ABG pCO2 25.8 L ABG pO2 156.0 H ABG HCO3 19.8 L ABG Total CO2 20.6 L ABG O2 Saturation 98.8 ABG Base Excess -2.3 Sodium 131 L Potassium 4.3 Chloride 97 L Carbon Dioxide 21 Anion Gap 17.3 H BUN 108 H Creatinine 6.20 H GFR Calculation 13 BUN/Creatinine Ratio 17.00 Glucose 151 H POC Glucose Calculated Osmolality 298.7 Calcium 7.0 L Magnesium 2.1 Total Bilirubin Direct Bilirubin Indirect Bilirubin AST ALT Alkaline Phosphatase Total Protein Albumin 02/11/17 02/11/17 06:05 09:00 WBC RBC Hgb Hct MCV MCH MCHC RDW Plt Count MPV Neut % (Auto) Lymph % (Auto) [place] % (Auto) Eos % (Auto) Baso % (Auto) Neut # (Auto) Lymph # (Auto) [place] # (Auto) Eos # (Auto) Baso # (Auto) Total Counted Immature Gran % Nucleated RBC % Immature Gran # Segmented Neutrophils Band Neutrophils Lymphocytes Monocytes Nucleated RBCs # Platelet Estimate Giant Platelets Immature Plt Fraction Hypochromasia Microcytosis Ovalocytes ABG pH ABG pCO2 ABG pO2 ABG HCO3 ABG Total CO2 ABG O2 Saturation ABG Base Excess Sodium Potassium Chloride Carbon Dioxide Anion Gap BUN Creatinine GFR Calculation BUN/Creatinine Ratio Glucose POC Glucose 159 H Calculated Osmolality Calcium Magnesium Total Bilirubin 4.70 H Direct Bilirubin 4.200 H Indirect Bilirubin 0.5 AST 112 H ALT 49 Alkaline Phosphatase 189 H Total Protein 6.1 L Albumin 1.4 L - Diagnostic Findings Procedure: Chest x-ray: report reviewed by me - EKG EKG results: interpreted by me EKG shows: atrial fibrillation Quality Measures - VTE Deep Vein Thrombosis/Pulmonary Embolism Present on Admission: No I, Devyn Thurston MD, personally performed the services described in this documentation, ascribed by Sheila Cronin NP in my presence, and it is both accurate and complete 324 .
[2017-02-11] MEDS: NOREPINEPHRINE 8 MG in SODIUM CHLORIDE 0.9% 242 ML IV SCH (14:39)
[2017-02-11] MEDS: MEROPENEM 1,000 MG in SODIUM CHLORIDE 0.9% 100 ML IV SCH (14:44)
[2017-02-11] MEDS ORDERED: HEPARIN 10,000 UNIT/10 ML VIAL IV SCH (15:30)
[2017-02-11 16:55] LABS: Bacteria,Urine Occasional /HPF (Few); Bilirubin,Urine Negative (Negative); Blood, Urine Trace mg/dL (Negative); Glucose,Urine (UA) Negative (Negative); Ketones,Urine Negative (Negative); Nitrite,Urine Negative (Negative); Protein,Urine Negative; RBC,Urine 4 /HPF (0-4); Urine Color Amber (Yellow); Urine Specific Gravity 1.005 (1.001-1.035); WBC,Urine 24 /HPF (0-6)
[2017-02-11 16:56] LABS: Apearance,Urine CLEAR (Clear); Urine Urobilinogen 0.2 EU/DL (0.2-1.0)
--- NOTE | 2017-02-11 19:25 | Nephrology Progress Note ---
Nephrology - PN: Subj Interval history: The patient remains ventilated. At this time continuing with medical management. Family is at the bedside and updated them regarding patient's renal status. Patient remains ventilated. Serum creatinine is 4.5. His urine output is picking up. He did have an episode of atrial fibrillation RVR this morning. Now on amiodarone8. 02/09/2017. Patient's condition is continued to be the same. Serum creatinine is now up to 5.7. He remains ventilated. 02/10/2017. Patient's condition is about the same. Minimal urine output. Serum creatinine is now up to 6.1. Potassium is 4.4. Minimal urine output again noted. At this time making preparations for renal replacement therapy. Have asked surgery for dialysis catheter. Will check a hepatitis panel. 02/11/2017. The patient's condition is about the same. He is more awake this afternoon. Started dialysis today we will plan for dialysis again tomorrow. Metabolic's are stable. Have conference with Dr. Hernandez about broaden patient's antibiotic coverage and agree with vancomycin as stated. We will continue with schedule hemodialysis for this patient. Exam (PN)-Nephrology - Vital Signs Vital signs: Period Temp Pulse Resp BP Sys/Shook Pulse Ox Last 24 Hr 97 F-97.6 F 105-135 12-23 85-125/34-99 94-100 - General Appearance General appearance: well-developed, intubated (Patient is awake and alert on the ventilator. Shakes his head yes or no to questions), fatigue EENT: ATNC Neck: supple Respiratory: clear Cardiology: regular rate, regular rhythm Gastrointestinal: normoactive bowel sounds, no tenderness Musculoskeletal: no clubbing Psychiatric: cooperative - Lab 02/11/17 04:00 02/11/17 04:00 Most recent lab results ABG pH 7.504 (7.35-7.45) H 02/11/17 04:38 ABG pCO2 25.8 MM HG (35-48) L 02/11/17 04:38 ABG pO2 156.0 MM HG (80-95) H 02/11/17 04:38 ABG HCO3 19.8 MMOL/L (20-26) L 02/11/17 04:38 ABG O2 Saturation 98.8 % (95-100) 02/11/17 04:38 Calcium 7.0 MG/DL (8.5-10.1) L 02/11/17 04:00 Phosphorus 6.2 MG/DL (2.5-4.9) H 02/10/17 04:30 Magnesium 2.1 MG/DL (1.8-2.4) 02/11/17 04:00 Assessment and Plan (1) Congestive heart failure Status: Chronic Current Visit: Yes Qualifiers: Congestive heart failure type: combined Congestive heart failure chronicity : acute on chronic Qualified Code(s): I50.43 - Acute on chronic combined systolic (congestive) and diastolic (congestive) heart failure (2) Diabetes Status: Chronic Current Visit: Yes Qualifiers: Diabetes mellitus type: type 2 Chronic kidney disease stage: stage 4 ( severe) (3) Ischemic cardiomyopathy Status: Chronic Current Visit: Yes (4) Renal insufficiency Status: Acute Assessment and plan: Progressive renal failure. Plan for hemodialysis on tomorrow. Continue with scheduled hemodialysis. Current Visit: Yes (5) Cardiomyopathy due to hypertension Status: Chronic Current Visit: No
[2017-02-11] MEDS: ATORVASTATIN 10 MG TABLET PO SCH (21:50)
[2017-02-12] MEDS: INSULIN REGULAR 100 UNIT/ML SUBCUT SCH ×3 (00:19→13:00)
[2017-02-12] MEDS: ALBUTEROL/IPRATROPIUM 3 ML NEB RESP TX SCH ×3 (00:48→12:50)
[2017-02-12] MEDS: METOCLOPRAMIDE 10 MG/2 ML VIAL IV SCH ×3 (00:59→13:18)
[2017-02-12] MEDS: PROPOFOL 1,000 MG/100 ML BOTTLE IV SCH ×2 (04:15→13:00)
[2017-02-12 05:16] LABS: ABG Base Excess 0.8 MMOL/L (-2.5-2.5); ABG HCO3 25.2 MMOL/L (20-26); ABG Oxygen Saturation 98.4 % (95-100); ABG PCO2 28.3 MM HG (35-48); ABG PH 7.518 (7.35-7.45); ABG TCO2 20.9 MMOL/L (23-27)
[2017-02-12 05:23] LABS: Basophils % 0.1 % (0.0-0.8); Eosinophils % 0.2 % (0.00-10.9); Hematocrit 23.7 VOL% (42.0-52.0); Hemoglobin 9.2 GM/DL (14.0-18.0); Immature Granulocytes % 4.5 %; Immature Granulocytes Absolute 0.83 #; Lymphocytes # 0.9 10*3/uL (1.4-4.0); Lymphocytes % 4.7 % (21.2-54.2); Mean Corpuscular HGB Conc 38.8 GM/DL (32-36); Mean Corpuscular Hemoglobin 32 PG (27-34); Mean Corpuscular Volume 81.2 FL (87-102); Mean Platelet Volume 11.1 FL (9.6-12.0); Monocytes # 1.3 10*3/uL (0.11-0.8); Monocytes % 6.9 % (1.7-12.7); NRBC # 0.02 10*3/uL; Neutrophils # 15.6 10*3/uL (1.4-7.4); Neutrophils % 83.6 % (38.7-73.9); Platelet Count 218 T/CUMM (130-400); Red Blood Count 2.92 MC/CUMM (3.8-5.5); Red Cell Distribution Width 15.5 % (9.3-17.3); White Blood Count 18.6 T/CUMM (4-12)
[2017-02-12 05:56] LABS: Calcium 7.1 MG/DL (8.5-10.1); Magnesium 2.1 MG/DL (1.8-2.4); Osmolality,Calculated 294.2 MOS/KG (273-304)
[2017-02-12 06:05] LABS: Albumin 1.3 G/DL (3.4-5.0); Band Neutrophils 1 % (0-10); Bilirubin,Direct 3.66 MG/DL (0.0-0.20); Bilirubin,Indirect 0.6 MG/DL (0.0-1.0); Bilirubin,Total 4.3 MG/DL (0.2-1.0); Giant Platelets Few; Lymphocytes 2 % (20-55); Platelet Estimate Adequate; Segmented Neutrophils 91 % (50-85); Total Cells Counted 100; Total Protein 6.3 G/DL (6.4-8.3)
[2017-02-12 06:06] LABS: Hypochromasia 1+; Microcytosis Slight; Target Cells Few
--- NOTE | 2017-02-12 06:34 | General Surgery Progress Note ---
Assessment and Plan (1) Lower extremity edema Status: Acute Assessment and plan: Continue elevating right leg. No operative intervention is recommended at this time. Please call back with any further questions Current Visit: Yes (2) Abdominal bloating Status: Acute Assessment and plan: No operative pathology. Please call back with any further questions Current Visit: No (3) Acute on chronic renal failure Status: Acute Assessment and plan: Dialysis catheter has been placed. Please call back with any further questions Current Visit: Yes Subjective Patient reports: Present: afebrile Exam - Constitutional Vitals: Period Temp Pulse Resp BP Sys/Shook Pulse Ox Last 24 Hr 97 F-97.6 F 109-132 12-28 85-130/34-74 95-99 General appearance: no acute distress, over weight - Head Head exam: Present: normal inspection, normocephalic - ENT ENT exam: Present: normal exam Mouth exam: Present: normal external inspection - Neck Neck exam: Present: normal inspection, trachea midline - Respiratory Respiratory exam: Present: clear to auscultation bilaterally. Absent: accessory muscle use, chest wall tenderness - Cardiovascular Cardiovascular exam: Present: RRR. Absent: systolic murmur, tachycardia - GI/Abdominal GI/Abdominal exam: Present: soft. Absent: tenderness, rebound - Extremities Exam Extremities exam: Present: other (There is epidermal lysis of the right leg was sloughing of the epidermis. There is no underlying infection.) - Skin Skin exam: Present: normal color, warm Results - Labs CBC & BMP: 02/12/17 05:16 02/12/17 05:16 Quality Measures - VTE Deep Vein Thrombosis/Pulmonary Embolism Present on Admission: No
--- NOTE | 2017-02-12 07:56 | XRay Report ---
Portable chest Date: 02/12/2017 Clinical history: Ventilator Comparison: 02/11/2017 Technique: Portable AP sitting chest Findings: Stable cardiomegaly with prior median sternotomy. The supportive devices are stable in position. Residual diffuse parenchymal findings which remain more prominent at the left lung base with persistent small pleural effusion. Stable mediastinum and osseous structures. Impression: No significant change in the appearance of the chest when compared to previous exam. PROCEDURE INTERPRETED AT [facility] DEPARTMENT OF RADIOLOGY Final Report Signed by: Dr. Elisabet Fry
--- NOTE | 2017-02-12 07:59 | Urology Progress Note ---
Urology - PN: Subj Interval history: Carvalho catheter is now out. They are performing intermittent cath. Residuals 250-300 cc. I recommend we can continue to do that. Exam - Constitutional Vitals: Period Temp Pulse Resp BP Sys/Shook Pulse Ox Last 24 Hr 97 F-97.6 F 109-132 12-29 85-130/34-74 95-99 Results - Labs CBC & BMP: 02/12/17 05:16 02/12/17 05:16
--- NOTE | 2017-02-12 08:52 | Pulmonology Progress Note ---
Pulmonary - PN: Subj Interval history: Patient is a 61-year-old black man that has an ischemic cardiomyopathy and has an ejection fraction of about 10-15%. He came in with respiratory distress and heart failure and had to be intubated. He also has worsening chronic renal insufficiency. He has been treated for cardiogenic shock with pressors. Yesterday he had dialysis and is reasonably well. He is still on low-dose dobutamine. He is doing CPAP fairly well now. His oxygenation is stable. Exam (Progress Note) - Constitutional Vitals: Period Temp Pulse Resp BP Sys/Shook Pulse Ox Last 24 Hr 97 F-97.6 F 108-132 12-29 85-130/34-74 95-100 Exam: General appearance: no acute distress (Patient is comfortable on the ventilator at present. He does respond. He does get some sedation.), over weight - Head Head exam: Present: normal inspection, normocephalic - Eye Eye exam: Present: EOMI. Absent: scleral icterus - ENT ENT exam: Present: other (ET tube is in good position.) - Neck Neck exam: Present: normal inspection, lymphadenopathy. Absent: thyromegaly - Respiratory Respiratory exam: Present: He has good breath sounds bilaterally and is moving air reasonably well. His lungs sound reasonably clear without wheezing. - Cardiovascular Cardiovascular exam: Present: gallop, regular rate and rhythm, systolic murmur - GI/Abdominal GI/Abdominal exam: Present: distended, hypoactive bowel sounds, tenderness, soft. He does have some ascites. absent: organomegaly - Extremities Exam Extremities exam: He does have worsening edema of the extremities. - Neurological Exam Neurological exam: Present: alert, he will respond. - Psychiatric Psychiatric exam: Present: normal mood, depressed Results - Labs CBC & BMP: 02/12/17 05:16 02/12/17 05:16 Labs: PO2 is 118 with a PCO2 of 28 and a pH of 7.51 - Diagnostic Findings Procedure: Chest x-ray: image reviewed by me, report reviewed by me (Chest x- ray shows cardiomegaly with no CHF) Assessment and Plan (1) Diabetes Status: Chronic Assessment and plan: His glucoses will be monitored. Glucose is 103 this morning. Current Visit: Yes Qualifiers: Diabetes mellitus type: type 2 Chronic kidney disease stage: stage 4 ( severe) (2) Ischemic cardiomyopathy Status: Chronic Assessment and plan: The patient apparently has a very reduced ejection fraction and is now on the ventilator. He is on pressors and has a fairly stable blood pressure. His oxygenation is okay so far. Current Visit: Yes (3) Renal insufficiency Status: Acute Assessment and plan: The patient's creatinine is little better after dialysis. Current Visit: Yes (4) Obstructive sleep apnea Status: Acute Assessment and plan: It is unclear how much treatment he has had for obstructive sleep apnea. He is on the ventilator now. Current Visit: No (5) Acute respiratory failure Status: Acute Assessment and plan: The patient had to be intubated today because he was quite lethargic and short of breath. He does have a severe cardiomyopathy. He basically has cardiogenic shock at the present time. He is still on low-dose Levophed and dobutamine. He did fairly well with dialysis yesterday. He is doing CPAP trials better. Hopefully can be extubated at some point in the near future. Current Visit: Yes Qualifiers: Respiratory failure complication: unspecified whether with hypoxia or hypercapnia Qualified Code(s): J96.00 - Acute respiratory failure, unspecified whether with hypoxia or hypercapnia (6) Atrial fibrillation with RVR Status: Acute Assessment and plan: Patient is having rapid atrial fibrillation and is on amiodarone now. Current Visit: Yes
[2017-02-12] MEDS: SODIUM BICARB INJ 50 MEQ in SODIUM CHLORIDE 0.9% 1,000 ML IV SCH (09:00)
[2017-02-12] MEDS: PANTOPRAZOLE 40 MG VIAL IV SCH (10:01)
[2017-02-12] MEDS: BACITRACIN/POLYMYXIN OINT 14.17 GM TUBE TOP SCH (10:02)
[2017-02-12] MEDS: AMIODARONE 200 MG TABLET NG SCH (10:02)
[2017-02-12] MEDS: GABAPENTIN 100 MG CAPSULE PO SCH ×2 (10:02→17:24)
[2017-02-12] MEDS: SILVER SULFADIAZINE 1% CREAM 25 GM TUBE TOP SCH (10:02)
[2017-02-12] MEDS: ENOXAPARIN 30 MG/0.3 ML SYRINGE SUBCUT SCH (10:02)
[2017-02-12] MEDS: ASPIRIN CHEW 81 MG TABLET PO SCH (10:02)
[2017-02-12] MEDS: DOBUTamine 500 MG/250 ML PREMIX IV SCH (11:01)
--- NOTE | 2017-02-12 12:08 | Nephrology Progress Note ---
Nephrology - PN: Subj Interval history: The patient remains ventilated. At this time continuing with medical management. Family is at the bedside and updated them regarding patient's renal status. Patient remains ventilated. Serum creatinine is 4.5. His urine output is picking up. He did have an episode of atrial fibrillation RVR this morning. Now on amiodarone8. 02/09/2017. Patient's condition is continued to be the same. Serum creatinine is now up to 5.7. He remains ventilated. 02/10/2017. Patient's condition is about the same. Minimal urine output. Serum creatinine is now up to 6.1. Potassium is 4.4. Minimal urine output again noted. At this time making preparations for renal replacement therapy. Have asked surgery for dialysis catheter. Will check a hepatitis panel. 02/11/2017. The patient's condition is about the same. He is more awake this afternoon. Started dialysis today we will plan for dialysis again tomorrow. Metabolic's are stable. Have conference with Dr. Hernandez about broaden patient's antibiotic coverage and agree with vancomycin as stated. We will continue with schedule hemodialysis for this patient. 02/12/2017. Patient's condition remains the same. Initiated hemodialysis on yesterday. Plan for further dialysis today. Patient is scheduled for long- term acute care hospital transfer sometime today. Metabolic's are stable. We will continue with hemodialysis. Exam (PN)-Nephrology - Vital Signs Vital signs: Period Temp Pulse Resp BP Sys/Shook Pulse Ox Last 24 Hr 97.4 F-98.9 F 108-132 12-29 85-130/34-74 94-100 - General Appearance General appearance: well-developed, well-nourished, intubated EENT: ATNC Neck: supple Respiratory: clear Cardiology: regular rate, regular rhythm Gastrointestinal: normoactive bowel sounds Musculoskeletal: no clubbing - Lab 02/12/17 05:16 02/12/17 05:16 Most recent lab results ABG pH 7.518 (7.35-7.45) H 02/12/17 05:00 ABG pCO2 28.3 MM HG (35-48) L 02/12/17 05:00 ABG pO2 118.0 MM HG (80-95) H 02/12/17 05:00 ABG HCO3 25.2 MMOL/L (20-26) 02/12/17 05:00 ABG O2 Saturation 98.4 % (95-100) 02/12/17 05:00 Calcium 7.1 MG/DL (8.5-10.1) L 02/12/17 05:16 Phosphorus 6.2 MG/DL (2.5-4.9) H 02/10/17 04:30 Magnesium 2.1 MG/DL (1.8-2.4) 02/12/17 05:16 Assessment and Plan (1) Congestive heart failure Status: Chronic Current Visit: Yes Qualifiers: Qualified Code(s): I50.43 - Acute on chronic combined systolic (congestive) and diastolic (congestive) heart failure (2) Diabetes Status: Chronic Current Visit: Yes (3) Ischemic cardiomyopathy Status: Chronic Current Visit: Yes (4) Renal insufficiency Status: Acute Assessment and plan: Progressive renal failure. Plan for hemodialysis on tomorrow. Continue with scheduled hemodialysis. Current Visit: Yes (5) Cardiomyopathy due to hypertension Status: Chronic Current Visit: No
--- NOTE | 2017-02-12 12:14 | Hospitalist Progress Note ---
Assessment and Plan (1) Acute on chronic renal failure Status: Acute Assessment and plan: Per nephrology HD initiated yesterday Current Visit: Yes (2) Acute respiratory failure Status: Acute Assessment and plan: Being managed by pulmonary Current Visit: Yes Qualifiers: Respiratory failure complication: unspecified whether with hypoxia or hypercapnia Qualified Code(s): J96.00 - Acute respiratory failure, unspecified whether with hypoxia or hypercapnia (3) Ileus, unspecified Status: Acute Assessment and plan: Improving on KUB Current Visit: Yes (4) Paraphimosis Status: Acute Current Visit: Yes (5) Open wounds involving multiple regions of lower extremity without complication Problem details: Open blisters from gross anasarca Status: Acute Current Visit: Yes (6) Ischemic cardiomyopathy Status: Chronic Assessment and plan: Cardiology managing Current Visit: Yes Hospitalist: Subjective Interval history: No acute events overnight. He did have high residuals overnight, tube feeds were held. Now restarted and morning residuals are improved. No changes to reglan now. Patient for transfer to LTAC soon. This afternoon patient with hypoactive bowel sounds, will get a KUB. Tube feeds being held again. Exam - Constitutional Vitals: Period Temp Pulse Resp BP Sys/Shook Pulse Ox Last 24 Hr 97 F-98.9 F 108-132 12-29 85-130/34-74 94-100 General appearance: over weight, other (et tube in place) - Head Head exam: Present: normocephalic, atraumatic - Eye Eye exam: Present: EOMI Pupils: Present: DEANA - ENT ENT exam: Present: normal exam - Neck Neck exam: Present: normal inspection - Respiratory Respiratory exam: Present: clear to auscultation bilaterally - Cardiovascular Cardiovascular exam: Present: regular rate and rhythm - GI/Abdominal GI/Abdominal exam: Present: normal bowel sounds, soft. Absent: tenderness, rebound - Extremities Exam Extremities exam: Present: normal inspection - Back Exam Back exam: Present: normal inspection - Neurological Exam Neurological exam: Present: alert, oriented X3 - Psychiatric Psychiatric exam: Present: normal affect, normal mood - Skin Skin exam: Present: warm, intact Results - Labs CBC & BMP: 02/12/17 05:16 02/12/17 05:16 Quality Measures - VTE Deep Vein Thrombosis/Pulmonary Embolism Present on Admission: No
--- NOTE | 2017-02-12 13:00 | Discharge Summary ---
Mehrdad Cline Lesley, JOANNA, am scribing for, and in the presence of, Devyn Thurston MD 13:00. Hospital Course - Hospital Course Hospital Course: SUMMARY: Mr. Fields is a 61-year-old BM, admitted on 02/04/17 with acutely decompensated chronic heart failure (NYHA class IV), EF 10%. On the same day at admission, patient became acutely unresponsive, hypotensive, with severe respiratory distress. He was quickly intubated and pulmonology consulted for vent management. He had acute on chronic renal failure, and nephrology was consulted. He was monitored in ICU for several days, maintained on a dobutamine infusion and on and off of vasopressors due to hypotension. The patient's right lower extremity was swollen and erythematous upon admission, with a small (approximately quarter size) blisters noted to the medial right lower leg. Venous Dopplers were negative 2. The patient rapidly developed anasarca in the right lower extremity only and wound care was consulted for this. The leg progressed to skin sloughing from the calf to the thigh. The patient converted to Afib with RVR, and the patient was cardioverted with 200 J to sinus rhythm but quickly returned to atrial fibrillation. KUB revealed an ileus and the patient had an NG tube. He also had ascites of the abdomen that persisted throughout his hospitalization. The patient reported this was normal for him upon admission, however a CT of the abdomen and pelvis revealed ascites without obvious bowel obstruction. Patient was eventually started on tube feeding and Reglan. He is not tolerating the tube feedings well up to this point, KUB done 02/11/17 shows an improving ileus. The patient became anuric, with progressively worsening renal function that led to an eventual dialysis catheter was placed Dr. Jeffers, and the patient underwent hemodialysis. Urology was consult due to the patient having a penile implant, and the implant was inflated for almost 24 hours due to staff could not deflate the pump. Attempts caused further inflation, the pump was deflated and the Carvalho catheter were removed due to skin breakdown noted at the head of the penis and the foreskin. The patient had a persistent leukocytosis that did not respond to antibiotics throughout the hospitalization. Infectious disease was consult for this, and antibiotics were changed. 2 sets of blood cultures and a urine culture were obtained with the final results pending upon patient transfer. This will need to be followed up on. The patient has responded well hemodynamically to dialysis, and this will be repeated today. The patient is to be transferred later today to an LTAC. - Time spent with patient Time with patient DS: Greater than 30 minutes (Record review, assessment, and documentation) Diagnosis - Discharge Diagnosis (1) Lower extremity edema Status: Acute (2) Abdominal bloating Status: Acute (3) History of coronary artery bypass graft Status: Chronic (4) Hyperlipidemia Status: Chronic (5) Ischemic cardiomyopathy Status: Chronic (6) Troponin level elevated Status: Chronic (7) Congestive heart failure Status: Chronic (8) Renal failure Status: Acute (9) Acute respiratory failure Status: Acute (10) Leukocytosis Status: Acute Discharge Plan - Discharge Data Disposition: Disch/Xfer to Longterm Hos Condition at Discharge: Stable Discharge Diet: other (Tube feedings) Activity: other (Bedbound, intubated) - Discharge Medications New Albuterol/Ipratropium Neb [Duoneb] 3 ml RESP TX RT Q6H Amiodarone Tab [Cordarone Tab] 200 mg NG BID tablet Aspirin Chew Tab 81 mg PO DAILY tablet Dextrose 50% [D50] 25 gm IV PRN PRN syringe PRN Reason: Hypoglycemia with IV access Enoxaparin [Lovenox] 30 mg SUBCUT Q24H syringe Heparin Inj 2,000 unit IV WITH DIALYSIS vial Metoclopramide Inj [Reglan Inj] 10 mg IV Q6HR vial Silver Sulfadiazine 1% Cream [Silvadene 1% Cream] 1 applic TOP DAILY applic Sodium Bicarb Inj 50 meq IV .[id number] vial Bacitracin/Polymyxin Oint [Polysporin Oint] 1 applic TOP BID applic Meropenem [Merrem] 1,000 mg IV Q24H vial Zinc Oxide Paste [Desitin Paste] 1 applic TOP PRN PRN applic PRN Reason: Diaper Rash Continue Atorvastatin [Lipitor] 10 mg PO BEDTIME Discontinued Insulin Lispro Prot/Lisp 75/25 [HumaLOG Mix 75/25] 25 units SUBCUT QAM Aspirin [Ecotrin] 81 mg PO DAILY Multivitamin [Multivitamins] 1 each PO DAILY amLODIPine [Norvasc] 10 mg PO DAILY HYDROcodone/ACETAMIN 10-325 [Bunkie 10-325] 1 tablet PO Q6H Insulin Lispro Prot/Lisp 75/25 [HumaLOG Mix 75/25] 10 units SUBCUT QPM Losartan [Cozaar] 25 mg PO BID #60 tablet Acetaminophen Tab [Tylenol Tab] 325 mg PO BID #14 tablet Pantoprazole Tab [Protonix Tab] 40 mg PO BID@0700,1900 #60 tablet traMADol TAB [Ultram] 50 mg PO BID #14 tablet Gabapentin Cap/Tab [Neurontin Cap/Tab] 100 mg PO TID #21 capsule Furosemide Tab [Lasix Tab] 80 mg PO DAILY #30 tablet - Follow Up or Referral - Forms/Instructions Exam - Constitutional Vitals: Period Temp Pulse Resp BP Sys/Shook Pulse Ox Last 24 Hr 97.4 F-98.9 F 108-132 12-29 85-130/34-74 94-100 Exam: General: Intubated, in bed with 2 point restraint appears comfortable. HEENT: Pupils pinpoint bilaterally, normocephalic, atraumatic]. Mucous membranes moist. No jaundice noted. Conjunctiva moist and clear, sclerae anicteric. Neck: No JVD/HJR, no thyromegaly or lymphadenopathy noted.] Cardiac: Irregularly irregular rate and rhythm. Murmur present, rub or gallop absent. Lungs: Ventilated, essentially clear noted to bilateral bases, orotracheal tube in place] Abdomen: bowel sounds distant but normoactive.] Abdomen distended, NG tube in place. No abdominal bruit or thrill noted. No masses noted. Musculoskeletal: Right leg with open blisters from medial thigh to calf, progressively worsened. Decreased range of motion is noted to all extremities Extremities: No clubbing, cyanosis noted. Edema noted to bilateral lower extremities. Upper extremity pulses 2+. Lower extremity pulses 2+. Capillary refill less than 3 seconds. Skin: ] Skin sloughing noted throughout right lower leg, weeping Neuro: Awake, follows simple commands, intubated] ] No essential tremor is appreciated. Discharge Results Procedures and tests throughout hospitalization: Pending Orders 02/11/17 Urine Culture Routine 02/11/17 13:56 Blood Culture Stat 02/13/17 04:00 XR chest 1V portable IN AM ABG [Arterial Blood Gas] IN AM BMP w/ Mg [Basic Metabolic Panel w/Mg] IN AM Comp Blood Count Auto Diff IN AM Vancomycin,Random IN AM 02/14/17 04:00 XR chest 1V portable IN AM ABG [Arterial Blood Gas] IN AM 02/16/17 04:00 Magnesium Routine Phosphorous Routine Prealbumin Routine Labs on day of discharge: Labs from last 24 hours 02/12/17 02/12/17 02/12/17 05:16 05:16 05:16 WBC 18.6 H RBC 2.92 L Hgb 9.2 L Hct 23.7 L MCV 81.2 L MCH 32 MCHC 38.8 H RDW 15.5 Plt Count 218 MPV 11.1 Neut % (Auto) 83.6 H Lymph % (Auto) 4.7 L [place] % (Auto) 6.9 Eos % (Auto) 0.2 Baso % (Auto) 0.1 Neut # (Auto) 15.6 H Lymph # (Auto) 0.9 L [place] # (Auto) 1.3 H Eos # (Auto) 0.0 Baso # (Auto) 0.0 Total Counted 100 Immature Gran % 4.5 Nucleated RBC % 0.1 Immature Gran # 0.83 Segmented Neutrophils 91 H Band Neutrophils 1 Lymphocytes 2 L Monocytes 6 Nucleated RBCs # 0.02 Platelet Estimate Adequate Giant Platelets Few Immature Plt Fraction 0.0 Hypochromasia 1+ Microcytosis Slight Target Cells Few ABG pH ABG pCO2 ABG pO2 ABG HCO3 ABG Total CO2 ABG O2 Saturation ABG Base Excess Sodium 134 L Potassium 4.0 Chloride 99 Carbon Dioxide 24 Anion Gap 15.0 BUN 89 H Creatinine 5.40 H GFR Calculation 15 BUN/Creatinine Ratio 16.00 Glucose 103 POC Glucose Calculated Osmolality 294.2 Calcium 7.1 L Magnesium 2.1 Total Bilirubin 4.30 H Direct Bilirubin 3.660 H Indirect Bilirubin 0.6 AST 107 H ALT 43 Alkaline Phosphatase 207 H Total Protein 6.3 L Albumin 1.3 L Urine Color Urine Appearance Urine pH Ur Specific [place] Urine Protein Urine Glucose (UA) Urine Ketones Urine Blood Urine Nitrate Urine Bilirubin Urine Urobilinogen Urine Leukocytes Urine RBC Urine WBC Urine WBC Clumps Urine Bacteria Ur Culture Indicated? 02/12/17 02/11/17 02/11/17 05:00 23:42 17:22 WBC RBC Hgb Hct MCV MCH MCHC RDW Plt Count MPV Neut % (Auto) Lymph % (Auto) [place] % (Auto) Eos % (Auto) Baso % (Auto) Neut # (Auto) Lymph # (Auto) [place] # (Auto) Eos # (Auto) Baso # (Auto) Total Counted Immature Gran % Nucleated RBC % Immature Gran # Segmented Neutrophils Band Neutrophils Lymphocytes Monocytes Nucleated RBCs # Platelet Estimate Giant Platelets Immature Plt Fraction Hypochromasia Microcytosis Target Cells ABG pH 7.518 H ABG pCO2 28.3 L ABG pO2 118.0 H ABG HCO3 25.2 ABG Total CO2 20.9 L ABG O2 Saturation 98.4 ABG Base Excess 0.8 Sodium Potassium Chloride Carbon Dioxide Anion Gap BUN Creatinine GFR Calculation BUN/Creatinine Ratio Glucose POC Glucose 102 114 H Calculated Osmolality Calcium Magnesium Total Bilirubin Direct Bilirubin Indirect Bilirubin AST ALT Alkaline Phosphatase Total Protein Albumin Urine Color Urine Appearance Urine pH Ur Specific [place] Urine Protein Urine Glucose (UA) Urine Ketones Urine Blood Urine Nitrate Urine Bilirubin Urine Urobilinogen Urine Leukocytes Urine RBC Urine WBC Urine WBC Clumps Urine Bacteria Ur Culture Indicated? 02/11/17 16:00 WBC RBC Hgb Hct MCV MCH MCHC RDW Plt Count MPV Neut % (Auto) Lymph % (Auto) [place] % (Auto) Eos % (Auto) Baso % (Auto) Neut # (Auto) Lymph # (Auto) [place] # (Auto) Eos # (Auto) Baso # (Auto) Total Counted Immature Gran % Nucleated RBC % Immature Gran # Segmented Neutrophils Band Neutrophils Lymphocytes Monocytes Nucleated RBCs # Platelet Estimate Giant Platelets Immature Plt Fraction Hypochromasia Microcytosis Target Cells ABG pH ABG pCO2 ABG pO2 ABG HCO3 ABG Total CO2 ABG O2 Saturation ABG Base Excess Sodium Potassium Chloride Carbon Dioxide Anion Gap BUN Creatinine GFR Calculation BUN/Creatinine Ratio Glucose POC Glucose Calculated Osmolality Calcium Magnesium Total Bilirubin Direct Bilirubin Indirect Bilirubin AST ALT Alkaline Phosphatase Total Protein Albumin Urine Color Thelma Urine Appearance Clear Urine pH 6.0 Ur Specific [place] 1.005 Urine Protein Negative Urine Glucose (UA) Negative Urine Ketones Negative Urine Blood Trace Urine Nitrate Negative Urine Bilirubin Negative Urine Urobilinogen 0.2 Urine Leukocytes Trace Urine RBC 4 Urine WBC 24 Urine WBC Clumps Occasional Urine Bacteria Occasional Ur Culture Indicated? Results to follow Preliminary micro results at discharge 02/11/17 Unknown Urine Culture - Preliminary Urine,Voided No Growth at 12 hours. DS: Provider Consults: 02/04/17 10:24 Consult to Physician [CONS] Routine Comment: acute on chronic renal failure Consulting Provider: Jude Esparza Jr. 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 Phelps 02/08/17 07:29 Consult to Physician [CONS] Routine Comment: worsening right LE cellulitus Consulting Provider: Andreas Jeffers 02/08/17 07:30 Consult to Dietitian [CONS] Routine Reason for Dietitian: TF-Initiate/Manage TPN/PPN-Initiate/Manage Consult Comment: ileus 02/10/17 09:42 Consult to Physician [CONS] Routine Comment: dialysis catheter Consulting Provider: Andreas Jeffers When should Consulting Provider be notified: Now 02/10/17 16:50 Consult to Physician [CONS] Routine Comment: decreased sensation in BLE Consulting Provider: Consult to Specialist Group: Neurology When should Consulting Provider be notified: Now 02/10/17 20:31 Consult to Physician [CONS] Routine Comment: Consulting Provider: Consult to Specialist Group: Hospitalist When should Consulting Provider be notified: Now 02/10/17 20:45 Consult to Physician [CONS] Routine Comment: Consulting Provider: Consult to Specialist Group: Urology When should Consulting Provider be notified: Now 02/10/17 23:20 Consult to Wound Care - [place] [CONS] Routine Reason for Wound Care: Wound Care Management Consult Comment: open blisters to right lower extremeties from gross anasarca 02/11/17 11:55 Consult to Physician [CONS] Routine Comment: persistent leukocytosis on antibiotics Consulting Provider: Consult to Specialist Group: Infectious Disease 02/11/17 12:17 Consult to Pharmacy [CONS] Routine Reason for Pharmacy Consult: Dose/Manage Vancomycin Expected date of discharge: 02/12/17 (transfer to [facility]) Karena Cline Michael, MD, personally performed the services described in this documentation, ascribed by Sheila Cronin NP in my presence, and it is both accurate and complete .
[2017-02-12] MEDS: NOREPINEPHRINE 8 MG in SODIUM CHLORIDE 0.9% 242 ML IV SCH (13:01)
[2017-02-12] MEDS: MEROPENEM 1,000 MG in SODIUM CHLORIDE 0.9% 100 ML IV SCH (13:19)
--- NOTE | 2017-02-12 13:23 | XRay Report ---
XR KUB Indication: Abdominal distention Comparison: None. Technique: Supine AP image of the abdomen was obtained. Findings: Study is grossly underpenetrated and demonstrates no specific abnormality of the bowel gas pattern. Impression: 1. Significant technical limitations exists. No gross abnormality of the bowel gas pattern is present. 02/12/2017 1:20 PM PROCEDURE INTERPRETED AT [facility] DEPARTMENT OF RADIOLOGY Final Report Signed by: Dr. Kameron Montes
--- NOTE | 2017-02-12 16:03 | Infectious Disease Progress ---
Assessment and Plan (1) Acute on chronic renal failure Status: Acute Assessment and plan: Patient now on hemodialysis Current Visit: Yes (2) Acute respiratory failure Status: Acute Current Visit: Yes Qualifiers: Respiratory failure complication: unspecified whether with hypoxia or hypercapnia Qualified Code(s): J96.00 - Acute respiratory failure, unspecified whether with hypoxia or hypercapnia (3) Leukocytosis Status: Acute Assessment and plan: Slightly improved today with broad-spectrum antibiotics. In looking at everything I think patient actually has right lower extremity cellulitis. Is probably difficult to appreciate erythema because of his dark pigmentation. With this blistering usually cause would be Streptococcus but would have expected the clindamycin to help the patient worsened on clindamycin. Recommendations: 1. Continue vancomycin and meropenem for now 2. Follow-up results of cultures are pending Discussed with Dr. Thurston Current Visit: Yes (4) Open wounds involving multiple regions of lower extremity without complication Problem details: Open blisters from gross anasarca Status: Acute Assessment and plan: As noted above I think the patient does have a significant case of cellulitis to the right lower extremity. Antibiotics as above. Current Visit: Yes (5) Congestive heart failure Status: Chronic Current Visit: Yes Qualifiers: Congestive heart failure type: combined Congestive heart failure chronicity : acute on chronic Qualified Code(s): I50.43 - Acute on chronic combined systolic (congestive) and diastolic (congestive) heart failure (6) Diabetes Status: Chronic Current Visit: Yes Qualifiers: Diabetes mellitus type: type 2 Chronic kidney disease stage: stage 4 ( severe) Infectious Disease - PN: Subj Interval history: Patient dialyzed yesterday for the first time, and is getting dialysis again today. He has not had any fever. Currently on dopamine. Infectious Disease Exam (PN) - Constitutional Vitals: Temp Pulse Resp BP Pulse Ox 99.4 F 139 H 12 97/68 98 02/12/17 12:00 02/12/17 15:00 02/12/17 15:00 02/12/17 14:00 02/12/17 15:00 General appearance: over weight, other (et tube in place) Exam: General appearance: Sedated on vent, but easily arousable - Eye Eye exam: Present: EOMI. no icterus Pupils: Present: DEANA - ENT ENT exam: ET tube in size - Neck Neck exam: supple - Respiratory Respiratory exam: vesicular BS decreased in bases, no crepitations or wheezes - Cardiovascular Cardiovascular exam: regular rate and rhythm, no murmurs - GI/Abdominal GI/Abdominal exam: normal bowel sounds, soft, non-tender, no organomegaly or mass - Extremities Exam Extremities exam: No change to bilateral lower extremity edema which is worse on right than left. Still has the blistering lesions of the right lower extremity - Skin Skin exam: Bullous lesions to right lower extremity deroofed in many areas Results - Labs CBC & BMP: 02/12/17 05:16 02/12/17 05:16 Lab Results: I have reviewed the past 24 hour labs (Blood and urine cultures negative to date) Quality Measures - VTE Deep Vein Thrombosis/Pulmonary Embolism Present on Admission: No
[2017-02-12 16:35] VITALS: BP 117/76
== END 2017-02-12 16:50 | DRG 291 ==
LOC: EDUNIT# → EDBD → N.ED 05:19 → N.EDINP 05:41 → N.CC 06:01
PROVIDERS: ADMIT Internal Medicine Cardiovascular Disease; ATTEND Internal Medicine Cardiovascular Disease

== ENCOUNTER 2017-03-28 12:43 | Inpatient (IN) ==
[2017-03-28] MEDS ORDERED: ONDANSETRON 4 MG/2 ML VIAL IV PRN (14:53)
[2017-03-28] MEDS ORDERED: ACETAMINOPHEN 325 MG TABLET PO PRN (14:53)
[2017-03-28] MEDS ORDERED: LORazepam 2 MG/1 ML VIAL IV PRN ×2 (14:58→15:49)
[2017-03-28] MEDS ORDERED: ENOXAPARIN 30 MG/0.3 ML SYRINGE SUBCUT SCH (15:00)
[2017-03-28] MEDS ORDERED: DEXTROSE 5% NACL 0.9% 1,000 ML IV SCH (15:00)
[2017-03-28] MEDS ORDERED: NOREPINEPHRINE 4 MG/4 ML VIAL IV ONE (15:05)
[2017-03-28 15:13] LABS: ABG Base Excess -9.6 MMOL/L (-2.5-2.5); ABG HCO3 16.2 MMOL/L (20-26); ABG Oxygen Saturation 56.8 % (95-100); ABG PCO2 38.4 MM HG (35-48); ABG PH 7.255 (7.35-7.45); ABG TCO2 15.9 MMOL/L (23-27)
[2017-03-28 15:21] LABS: ABG PO2 38.9 MM HG (80-95)
[2017-03-28 15:30] LABS: Basophils % 0.1 % (0.0-0.8); Hematocrit 30.6 VOL% (42.0-52.0); Hemoglobin 9.3 GM/DL (14.0-18.0); Immature Granulocytes % 3.1 %; Immature Granulocytes Absolute 0.32 #; Lymphocytes # 0.7 10*3/uL (1.4-4.0); Mean Corpuscular HGB Conc 30.4 GM/DL (32-36); Mean Corpuscular Hemoglobin 31 PG (27-34); Mean Corpuscular Volume 100.3 FL (87-102); Monocytes % 9.4 % (1.7-12.7); NRBC # 0.07 10*3/uL; Neutrophils # 8.4 10*3/uL (1.4-7.4); Neutrophils % 80.4 % (38.7-73.9); Platelet Count 276 T/CUMM (130-400); Red Blood Count 3.05 MC/CUMM (3.8-5.5); Red Cell Distribution Width 21.5 % (9.3-17.3); White Blood Count 10.4 T/CUMM (4-12)
[2017-03-28] MEDS ORDERED: NOREPINEPHRINE 16 MG in SODIUM CHLORIDE 0.9% 234 ML IV SCH (15:30)
[2017-03-28] MEDS ORDERED: MORPHINE 2 MG/1 ML SYRINGE IV PRN (15:48)
[2017-03-28 15:52] LABS: Albumin 1.7 G/DL (3.4-5.0); Bilirubin,Total 2.1 MG/DL (0.2-1.0); Calcium 8.3 MG/DL (8.5-10.1); Magnesium 2.1 MG/DL (1.8-2.4); Osmolality,Calculated 278.1 MOS/KG (273-304); Potassium 4.3 MMOL/L (3.5-5.1); Total Protein 6.5 G/DL (6.4-8.3)
[2017-03-28] MEDS ORDERED: fentaNYL 100 MCG/2 ML VIAL IV PRN (16:00)
[2017-03-28] MEDS: ALBUTEROL/IPRATROPIUM 3 ML NEB RESP TX SCH (19:30)
[2017-03-29] MEDS: ALBUTEROL/IPRATROPIUM 3 ML NEB RESP TX SCH (00:41)
[2017-03-29 03:50] VITALS: BP 67/49
[2017-03-29] MEDS ORDERED: PANTOPRAZOLE 40 MG TABLET PO SCH (09:00)
== END 2017-03-29 04:11 | disposition expired | DRG 291 ==
LOC: N.CC 14:33 → SUATTDRO 14:33 → N.CC 14:43
PROVIDERS: ADMIT Family Medicine; ATTEND Internal Medicine